=== PATIENT | male | born 1945 | race Caucasian/White ===

== ENCOUNTER 2017-03-21 12:33 | Emergency (ER) | payer MEDICARE ==
[2017-03-21 12:44] VITALS: BP 118/67
--- NOTE | 2017-03-21 13:04 | PHYS DOC ---
Past Medical History Past Medical History: Other Additional Past Medical Histor: bone spur. uses wheelchair r/t arthritis debility;bladder problem Past Surgical History: Other Additional Past Surgical Histo: COLOSTOMY; urostomy Alcohol Use: None Drug Use: None Adult General Chief Complaint Chief Complaint: EYE PROBLEMS HPI HPI Patient is a 71 year old male presents emergency department stating that he is having left lower eyelid itching and irritation. He states this is been occurring for the last few days. He denies any drainage or discharge denies any upper respiratory congestion. He denies any use of contact lenses. Denies any exposure to conjunctivitis. Patient denies any visual changes. Review of Systems Review of Systems Constitutional: Denies fever or chills [] Eyes: Denies change in visual acuity, redness, complaining of eye irritation, left HENT: Denies nasal congestion or sore throat [] Respiratory: Denies cough or shortness of breath [] Cardiovascular: No additional information not addressed in HPI [] GI: Denies abdominal pain, nausea, vomiting, bloody stools or diarrhea [] : Denies dysuria or hematuria [] Musculoskeletal: Denies back pain or joint pain [] Integument: Denies rash or skin lesions [] Neurologic: Denies headache, focal weakness or sensory changes [] Endocrine: Denies polyuria or polydipsia [] Allergies Allergies Allergies Coded Allergies Type Severity Reaction Last Updated Verified No Known Drug Allergies 05/03/15 No Physical Exam Physical Exam Constitutional: Well developed, well nourished, no acute distress, non-toxic appearance. [] HENT: Normocephalic, atraumatic, bilateral external ears normal, oropharynx moist, no oral exudates, nose normal. [] Eyes: PERRLA, EOMI, conjunctiva normal, no discharge. Left lower eyelid appears to be slightly red and swollen. No drainage or discharge noted from the site. Neck: Normal range of motion, no tenderness, supple, no stridor. [] Cardiovascular:Heart rate regular rhythm Lungs & Thorax: No respiratory distress noted Skin: Warm, dry, no erythema, no rash. [] Extremities: No tenderness, no cyanosis, no clubbing, ROM intact, no edema. [] Neurologic: Alert and oriented X 3, normal motor function, normal sensory function, no focal deficits noted. [] Psychologic: Affect normal, judgement normal, mood normal. [] Current Patient Data Vital Signs Vital Signs Date Time Temp Pulse Resp B/P (MAP) Pulse Ox O2 Delivery O2 Flow Rate FiO2 03/21/17 12:44 97.9 97 18 118/67 (84) 96 Room Air 97.9 EKG EKG [] Radiology/Procedures Radiology/Procedures [] Course & Med Decision Making Course & Med Decision Making Pertinent Labs and Imaging studies reviewed. (See chart for details) Patient will be placed on erythromycin in which she can placed into the eye or along the eyelid. He will be provided with key ringer to follow up within the next 2-3 days. Signs and symptoms to return back to the emergency department has been provided. Patient agrees with discharge instructions, treatment regimens and follow-up recommendations. [] Dragon Disclaimer Dragon Disclaimer This electronic medical record was generated, in whole or in part, using a voice recognition dictation system. Departure Departure Impression: Primary Impression: Infection of eyelid Disposition: 01 HOME, SELF-CARE Condition: STABLE Referrals: ISA WHITEHEAD (PCP) Layne CRUZ MD Patient Instructions: Sty Additional Instructions: Medications as prescribed. Good handwashing is essential. Do not place the ointment tube to your eye. Follow-up with key ringer in the next 24-48 hours. Return back to emergency prior signs symptoms become worse. Scripts Erythromycin Base (Erythromycin) 1 Gm Oint...g. 1 GM LEFTEYE QID for 7 Days, MISC Place ointment to the left lower eye lid as directed for the next 7 days Prov: NAKITA DRUMMOND APRN 03/21/17 NAKITA DRUMMOND APRN Mar 21, 2017 13:04
[2017-03-21] MEDS ORDERED: ERYT1OIN6 LEFTEYE (13:10)
== END 2017-03-21 13:20 | disposition home or self-care (01) ==
LOC: ER 12:33
DX: H01.9 Unspecified inflammation of eyelid (principal); M19.90 Unspecified osteoarthritis, unspecified site
CPT/HCPCS: 99283

== ENCOUNTER 2017-12-15 15:03 | Emergency (ER) | payer MEDICARE | END 2017-12-15 15:09 | disposition left against medical advice (07) | LOC: ER 15:09 | DX: M79.622 Pain in left upper arm (principal); Z53.21 Procedure and treatment not carried out due to patient leaving prior to being seen by health care provider ==

== ENCOUNTER 2018-03-20 12:15 | Emergency (ER) | payer SELFPAY, MEDICARE | END 2018-03-20 14:28 | disposition home or self-care (01) | LOC: ER 12:15 | DX: S80.02XA Contusion of left knee, initial encounter (principal); M17.12 Unilateral primary osteoarthritis, left knee; M54.2 Cervicalgia; M25.512 Pain in left shoulder; W01.0XXA Fall on same level from slipping, tripping and stumbling without subsequent striking against object, initial encounter; Y93.89 Activity, other specified; Y99.8 Other external cause status; Y92.89 Other specified places as the place of occurrence of the external cause | CPT/HCPCS: 72125; 73060; 73564; 99284-25 ==

== ENCOUNTER 2018-03-28 17:22 | Emergency (ER) | payer MEDICARE | END 2018-03-28 19:34 | disposition home or self-care (01) | LOC: ER 17:22 | DX: S60.041A Contusion of right ring finger without damage to nail, initial encounter (principal); W18.39XA Other fall on same level, initial encounter; Y93.89 Activity, other specified; Y99.8 Other external cause status; Y92.89 Other specified places as the place of occurrence of the external cause | CPT/HCPCS: 29130; 73130; 99284-25 ==

== ENCOUNTER 2018-09-09 12:16 | Emergency (ER) | payer MEDICARE ==
[~2018-09-09] VITALS: Ht 182.9 cm; Wt 118.8 kg
[~2018-09-09 12:16] MED LIST: ERYT1OIN6 LEFTEYE
--- NOTE | 2018-09-09 12:50 | PHYS DOC ---
Past Medical History Past Medical History: Other Additional Past Medical Histor: bone spur. uses wheelchair r/t arthritis debility;bladder problem Past Surgical History: Other Additional Past Surgical Histo: COLOSTOMY; urostomy Alcohol Use: None Drug Use: None Adult General Chief Complaint Chief Complaint: BLURRED/DOUBLE VISION [facility] HPI Patient is a 72 year old male who presents with blurred vision. Patient states he was riding his motorized scooter to go get some lunch at a local bar. He had onset of what he describes to be blurred vision but only in the right eye. The symptoms lasted only a few minutes and spontaneously resolved. He came to the ER for evaluation. He did not have any focal weakness or other neuro complaints. At baseline, the patient ambulance with a walker while at home and uses a motorized scooter when he leaves his house. He has not been ill lately. No fever or chills. No headaches. No vision changes other than described. No nausea or vomiting. No weakness. No chest pain or shortness of breath. During this interview, the patient's symptoms were entirely resolved. He did not describe any vision loss. He has no eye pain. Review of Systems Review of Systems Constitutional: Denies fever or chills Eyes: as documented above HENT: Denies nasal congestion or sore throat Respiratory: Denies cough or shortness of breath Cardiovascular: No additional information not addressed in HPI GI: Denies abdominal pain, nausea : Denies dysuria or hematuria Musculoskeletal: Denies back pain Integument: Denies rash or skin lesions Neurologic: Denies headache, or focal neuro complaints All other systems were reviewed and found to be within normal limits, except as documented in this note. Allergies Allergies Allergies Coded Allergies Type Severity Reaction Last Updated Verified No Known Drug Allergies 09/09/18 No Physical Exam Physical Exam Constitutional: Well developed, well nourished, no acute distress, non-toxic appearance HENT: Normocephalic, atraumatic, bilateral external ears normal, oropharynx moist Eyes: PERRLA, EOMI, conjunctiva normal Neck: Normal range of motion, no tenderness Cardiovascular:Heart rate regular rhythm, no murmur Lungs & Thorax: Bilateral breath sounds clear to auscultation Abdomen: Bowel sounds normal, soft Skin: Warm, dry, no erythema, no rash Extremities: No tenderness, no edema Neurologic: Alert and oriented X 3, normal motor function, CN II-XII intact bilaterally, 5/5 motor strength in all extremities Psychologic: Affect normal Current Patient Data Vital Signs Vital Signs Date Time Temp Pulse Resp B/P (MAP) Pulse Ox O2 Delivery O2 Flow Rate FiO2 09/09/18 12:16 98.4 71 18 157/71 (99) 99 Room Air 98.4 Lab Values Laboratory Tests Test 09/09/18 12:50 White Blood Count 5.1 x10^3/uL (4.0-11.0) Red Blood Count 4.50 x10^6/uL (4.30-5.70) Hemoglobin 14.0 g/dL (13.0-17.5) Hematocrit 38.8 % (39.0-53.0) L Mean Corpuscular Volume 86 fL (79-100) Mean Corpuscular Hemoglobin 31 pg (25-35) Mean Corpuscular Hemoglobin Concent 36 g/dL (31-37) Red Cell Distribution Width 13.8 % (11.5-14.5) Platelet Count 184 x10^3/uL (140-400) Neutrophils (%) (Auto) 50 % (31-73) Lymphocytes (%) (Auto) 32 % (24-48) Monocytes (%) (Auto) 13 % (0-9) H Eosinophils (%) (Auto) 3 % (0-3) Basophils (%) (Auto) 2 % (0-3) Neutrophils # (Auto) 2.5 x10^3uL (1.8-7.7) Lymphocytes # (Auto) 1.6 x10^3/uL (1.0-4.8) Monocytes # (Auto) 0.7 x10^3/uL (0.0-1.1) Eosinophils # (Auto) 0.1 x10^3/uL (0.0-0.7) Basophils # (Auto) 0.1 x10^3/uL (0.0-0.2) Sodium Level 137 mmol/L (136-145) Potassium Level 4.0 mmol/L (3.5-5.1) Chloride Level 100 mmol/L (98-107) Carbon Dioxide Level 28 mmol/L (21-32) Anion Gap 9 (6-14) Blood Urea Nitrogen 20 mg/dL (8-26) Creatinine 1.4 mg/dL (0.7-1.3) H Estimated GFR (Cockcroft-Gault) 49.8 Glucose Level 100 mg/dL (70-99) H Calcium Level 9.6 mg/dL (8.5-10.1) Troponin I Quantitative < 0.017 ng/mL (0.000-0.055) Laboratory Tests 09/09/18 12:50 Laboratory Tests 09/09/18 12:50 EKG EKG No STEMI Interpretation Time: 12:50 Radiology/Procedures Radiology/Procedures CT head w/o: No acute findings Course & Med Decision Making Course & Med Decision Making Pertinent Labs and Imaging studies reviewed. (See chart for details) Patient was evaluated in the emergency department for a transient episode of blurred vision. He did not have vision loss. He has no pain. No pain with extraocular movements. During the ED course, his eye exam was normal. His visual acuities were OU, OD, OS were all 20/50. Neuro exam was normal. CT scan was normal. Lab panel was normal and normal EKG. Patient was discharged to home. He was advised follow-up with an collator hand. Return to the ER for any new or worsening symptoms. The patient was requesting discharge home. Dragon Disclaimer Dragon Disclaimer This electronic medical record was generated, in whole or in part, using a voice recognition dictation system. Departure Departure Disposition: 01 HOME, SELF-CARE Condition: GOOD Referrals: ISA WHITEHEAD MD (PCP) SALVADOR RG DO Sep 09, 2018 12:50
[2018-09-09 12:59] LABS: BASO # 0.1 x10^3/uL (0.0-0.2); BASO % 2 % (0-3); EOS # 0.1 x10^3/uL (0.0-0.7); EOS % 3 % (0-3); HEMATOCRIT 38.8 % (39.0-53.0); LYMPH # 1.6 x10^3/uL (1.0-4.8); LYMPH % 32 % (24-48); MEAN CORPUSCULAR HEMOGLOBIN 31 pg (25-35); MEAN CORPUSCULAR HGB CONC 36 g/dL (31-37); MEAN CORPUSCULAR VOLUME 86 fL (79-100); MONO # 0.7 x10^3/uL (0.0-1.1); MONO % 13 % (0-9); NEUT # 2.5 x10^3uL (1.8-7.7); NEUT % 50 % (31-73); PLATELET COUNT 184 x10^3/uL (140-400); RED CELL DISTRIBUTION WIDTH 13.8 % (11.5-14.5); WHITE BLOOD COUNT 5.1 x10^3/uL (4.0-11.0)
[2018-09-09 13:27] LABS: CALCIUM 9.6 mg/dL (8.5-10.1); CREATININE 1.4 mg/dL (0.7-1.3); GFR 49.8
--- NOTE | 2018-09-09 13:31 | RAD ---
CT Head W/O Contrast: History: Sudden onset vision loss right eye Comparison: November 20, 2012 Axial images were obtained without contrast. There is moderate diffuse atrophy. There is no mass effect, extraaxial fluid collections or hydrocephalus. There is no focal loss of teague-white matter distinction to suggest acute ischemia, i.e. stroke. Impression: No acute findings. RS Compliance Statement: One or more of the following individualized dose reduction techniques were utilized for this examination: 1. Automated exposure control 2. Adjustment of the mA and/or kV according to patient size 3. Use of iterative reconstruction technique Electronically signed by: Jeet Lopez III, MD (09/09/2018 1:27 PM) [facility]
[2018-09-09 13:53] VITALS: BP 147/77
--- NOTE | 2018-09-09 18:34 | EKG ---
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
== END 2018-09-09 14:02 | disposition home or self-care (01) ==
LOC: ER 12:16
DX: H53.8 Other visual disturbances (principal)
CPT/HCPCS: 36415; 70450; 80048; 84484; 85025; 93005; 99284-25

== ENCOUNTER 2020-03-23 00:52 | Emergency (ER) | payer MEDICARE ==
[~2020-03-23] VITALS: Ht 185.4 cm; Wt 118.8 kg
--- NOTE | 2020-03-23 01:21 | PHYS DOC ---
Past Medical History Past Medical History: Other Additional Past Medical Histor: bone spur. uses wheelchair r/t arthritis debility;bladder problem Past Surgical History: Other Additional Past Surgical Histo: COLOSTOMY; urostomy Smoking Status: Current Every Day Smoker Alcohol Use: None Drug Use: None General Adult EDM: Chief Complaint: WEAKNESS/GENERALIZED HPI: HPI: Patient is a 74 year old male with a past medical history of arthritis in both knees presents by EMS for the evaluation of fever cough and weakness. EMS reports patient had a fever today of 101.9 associated with a cough and generalized weakness x2 days. When examining the patient he denies any fever cough or generalized weakness. His main complaint is bilateral knee pain. Patient states is longstanding history of arthritis in both knees. He takes meloxicam for his pain but did not take any tonight. He states he in the past he has gotten cortisone shots in both knees. Patient is requesting cortisone shots at this time. Patient is currently afebrile. He is alert to place, month, and the president. Patient is confused regarding the year. Patient's vital signs are stable tem perature 99.9, pulse 98, respiratory rate 20 and oxygen saturation 97% on room air. Review of Systems: Review of Systems: Constitutional: Positive fever Eyes: Denies change in visual acuity. [] HENT: Denies nasal congestion or sore throat. [] Respiratory: Denies shortness of breath. [Positive history of cough ] Cardiovascular: Denies chest pain or edema. [] GI: Denies abdominal pain, nausea, vomiting, bloody stools or diarrhea. [] : Denies dysuria. [] Musculoskeletal: Positive joint pain Integument: Denies rash. [] Neurologic: Denies headache, focal weakness or sensory changes. [] Endocrine: Denies polyuria or polydipsia. [] Lymphatic: Denies swollen glands. [] Psychiatric: Denies depression or anxiety. [] Heart Score: Risk Factors: Risk Factors: DM, Current or recent (<one month) smoker, HTN, HLP, family history of CAD, obesity. Risk Scores: Score 0 - 3: 2.5% MACE over next 6 weeks - Discharge Home Score 4 - 6: 20.3% MACE over next 6 weeks - Admit for Clinical Observation Score 7 - 10: 72.7% MACE over next 6 weeks - Early Invasive Strategies Allergies: Allergies: Allergies Coded Allergies Type Severity Reaction Last Updated Verified No Known Drug Allergies 09/09/18 No Physical Exam: PE: Constitutional: Well developed, well nourished, no acute distress, non-toxic appearance. [] HENT: Normocephalic, atraumatic, bilateral external ears normal, oropharynx moist, no oral exudates, nose normal. [] Eyes: PERRLA, EOMI, conjunctiva normal, no discharge. [] Neck: Normal range of motion, no tenderness, supple, no stridor. [] Cardiovascular:Heart rate regular rhythm, no murmur [] Lungs & Thorax: Bilateral breath sounds clear to auscultation [] Abdomen: Bowel sounds normal, soft, no tenderness, no masses, no pulsatile masses. [] Skin: Warm, dry, no erythema, no rash. [] Back: No tenderness, no CVA tenderness. [] Extremities: No tenderness, no cyanosis, no clubbing, ROM intact, no edema. [] Neurologic: Alert and oriented X 3, normal motor function, normal sensory function, no focal deficits noted. [] Psychologic: Affect normal, judgement normal, mood normal. [] EKG: EKG: time 111hrd rate 99 sinus rhythm no stemi [] Radiology/Procedures: Radiology/Procedures: [] Impression: Comparison study is dated 10/30/2013. The cardiac silhouette is normal in size. The thoracic aorta is tortuous. Atherosclerotic calcification of the thoracic aorta is seen. A small calcified granuloma is seen involving the left upper lobe, unchanged. No acute pulmonary infiltrate is noted. No pneumothorax or pleural effusion is seen. Degenerative changes are seen involving the thoracic spine and both shoulders, left greater than right. Impression: No acute abnormality is seen. Course & Med Decision Making: Course & Med Decision Making Pertinent Labs and Imaging studies reviewed. (See chart for details) [] Patient was evaluated for EMS triage chief complaint. Work-up consisted of labs radiologic imaging and EKG. Patient denies any other symptoms such as shortness of breath fever cough. Work-up completely normal. Patient was direct requesting steroid shots in both knees. Patient's pain was treated with fentanyl with improvement. Patient also requesting refill on his meloxicam. Patient ambulated with a steady gait. Dragon Disclaimer: DragAristotle Circle Disclaimer: This electronic medical record was generated, in whole or in part, using a voice recognition dictation system. Departure Departure Impression: Primary Impression: Knee pain, chronic Disposition: HOME, SELF-CARE Condition: STABLE Referrals: NO PCP (PCP) Patient Instructions: Knee Pain Scripts Meloxicam (MELOXICAM) 7.5 Mg Tablet 1 TAB PO DAILY for 30 Days, #30 TAB 0 Refills Prov: ANGELIA SALGADO DO 03/23/20 Justicifation of Admission Dx: Justifications for Admission: Justification of Admission Dx: N/A ANGELIA SALGADO DO Mar 23, 2020 01:21
[2020-03-23] MEDS ORDERED: ACETAMINOPHEN 325 MG TABLET. PO ONE (01:45)
[2020-03-23 01:50] LABS: BASO % 1 % (0-3); EOS # 0.1 x10^3/uL (0.0-0.7); EOS % 1 % (0-3); HEMATOCRIT 36.7 % (39.0-53.0); LYMPH % 17 % (24-48); MEAN CORPUSCULAR HEMOGLOBIN 31 pg (25-35); MEAN CORPUSCULAR HGB CONC 35 g/dL (31-37); MEAN CORPUSCULAR VOLUME 87 fL (79-100); MONO # 1.3 x10^3/uL (0.0-1.1); MONO % 23 % (0-9); NEUT # 3.4 x10^3/uL (1.8-7.7); NEUT % 59 % (31-73); PLATELET COUNT 170 x10^3/uL (140-400); RED BLOOD COUNT 4.25 x10^6/uL (4.30-5.70); RED CELL DISTRIBUTION WIDTH 13.9 % (11.5-14.5); WHITE BLOOD COUNT 5.7 x10^3/uL (4.0-11.0)
[2020-03-23 01:54] LABS: CREATININE 1.7 mg/dL (0.7-1.3); GFR 39.6
[2020-03-23 01:59] LABS: ALBUMIN 3.4 g/dL (3.4-5.0); ALBUMIN/GLOBULIN RATIO 0.8 (1.0-1.7); TOTAL BILIRUBIN 1.1 mg/dL (0.2-1.0); TOTAL PROTEIN 7.6 g/dL (6.4-8.2)
[2020-03-23 02:16] LABS: % ATYL 1 % (0-0); % BANDS 1 % (0-9); % BASOS 1 % (0-3); % LYMPHS 17 % (24-48); % MONOS 13 % (0-10); % SEGS 67 % (35-66); PLT ESTIMATE ADEQUATE (ADEQUATE)
[2020-03-23 02:16] LABS: BILIRUBIN,URINE NEGATIVE (NEG); CLARITY,URINE CLEAR; COLOR,URINE YELLOW; NITRITE,URINE NEGATIVE (NEG); PROTEIN,URINE NEGATIVE (NEG-TRACE)
[2020-03-23 02:25] LABS: SQUAMOUS EPITHELIAL CELL,UR FEW /LPF
[2020-03-23 02:26] LABS: AMORPHOUS SEDIMENT,UR PRESENT /HPF; BACTERIA,URINE 0 /HPF (0-FEW); RBC,URINE RARE /HPF (0-2); WBC,URINE RARE /HPF (0-4)
--- NOTE | 2020-03-23 02:53 | RAD ---
AP portable chest radiograph 03/23/2020 Clinical History: Cough. An AP erect portable digital radiograph of the chest was obtained. Comparison study is dated 10/30/2013. The cardiac silhouette is normal in size. The thoracic aorta is tortuous. Atherosclerotic calcification of the thoracic aorta is seen. A small calcified granuloma is seen involving the left upper lobe, unchanged. No acute pulmonary infiltrate is noted. No pneumothorax or pleural effusion is seen. Degenerative changes are seen involving the thoracic spine and both shoulders, left greater than right. Impression: No acute abnormality is seen. Electronically signed by: Jamie Marroquin MD (03/23/2020 2:50 AM) [id number]
[2020-03-23] MEDS ORDERED: MELO7.5T29 PO (04:30)
--- NOTE | 2020-03-23 04:44 | EKG ---
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
[2020-03-23] MEDS ORDERED: fentaNYL PF VIAL 100 MCG/2 ML VIAL IVP ONE (06:00)
--- NOTE | 2020-03-23 08:32 | PDOC1 ---
History and Physical Date of Admission Date of Admission DATE: 03/23/20 TIME: 08:32 Identification/Chief Complaint Chief Complaint patient left ama Past Medical History Past Medical History Past Medical History Past Medical History: Other Additional Past Medical Histor: bone spur. uses wheelchair r/t arthritis debility;bladder problem Past Surgical History: Other Additional Past Surgical Histo: COLOSTOMY; urostomy Alcohol Use: None Drug Use: None FHX OBESITY Current Problem List Problem List Problems Medical Problems: (1) Knee pain, chronic Status: Acute Current Medications Current Medications Current Medications Acetaminophen (Tylenol) 650 mg 1X ONCE PO Last administered on 03/23/20at 02:16; Start 03/23/20 at 01:45; Stop 03/23/20 at 01:46; Status DC Fentanyl Citrate (Fentanyl 2ml Vial) 25 mcg 1X ONCE IVP Last administered on 03/23/20at 05:58; Start 03/23/20 at 06:00; Stop 03/23/20 at 06:01; Status DC Active Scripts Active Meloxicam 7.5 Mg Tablet 1 Tab PO DAILY 30 Days Erythromycin (Erythromycin Base) 1 Gm Oint...g. 1 Gm LEFTEYE QID [address] ointment to the left lower eye lid as directed for the next 7 days Reported No Known Medications Prior To Admisstion (Info) Each 1 Each Allergies Allergies: Coded Allergies: No Known Drug Allergies (Unverified , 09/09/18) Vitals Vitals Vital Signs Date Time Temp Pulse Resp B/P (MAP) Pulse Ox O2 Delivery O2 Flow Rate FiO2 03/23/20 06:32 98.3 84 20 98 98.3 03/23/20 05:58 Room Air 03/23/20 00:52 159/70 (99) Labs Labs Laboratory Tests Test 03/23/20 01:15 03/23/20 01:24 Urine Collection Type Unknown Urine Color Yellow Urine Clarity Clear Urine pH 7.0 (<5.0-8.0) Urine Specific Brady 1.020 (1.000-1.030) Urine Protein Negative mg/dL (NEG-TRACE) Urine Glucose (UA) Negative mg/dL (NEG) Urine Ketones (Stick) Negative mg/dL (NEG) Urine Blood Negative (NEG) Urine Nitrite Negative (NEG) Urine Bilirubin Negative (NEG) Urine Urobilinogen Dipstick 1.0 mg/dL (0.2 mg/dL) Urine Leukocyte Esterase Negative (NEG) Urine RBC Rare /HPF (0-2) Urine WBC Rare /HPF (0-4) Urine Squamous Epithelial Cells Few /LPF Urine Amorphous Sediment Present /HPF Urine Bacteria 0 /HPF (0-FEW) Urine Mucus Slight /LPF White Blood Count 5.7 x10^3/uL (4.0-11.0) Red Blood Count 4.25 x10^6/uL (4.30-5.70) Hemoglobin 13.0 g/dL (13.0-17.5) Hematocrit 36.7 % (39.0-53.0) Mean Corpuscular Volume 87 fL (79-100) Mean Corpuscular Hemoglobin 31 pg (25-35) Mean Corpuscular Hemoglobin Concent 35 g/dL (31-37) Red Cell Distribution Width 13.9 % (11.5-14.5) Platelet Count 170 x10^3/uL (140-400) Neutrophils (%) (Auto) 59 % (31-73) Lymphocytes (%) (Auto) 17 % (24-48) Monocytes (%) (Auto) 23 % (0-9) Eosinophils (%) (Auto) 1 % (0-3) Basophils (%) (Auto) 1 % (0-3) Neutrophils # (Auto) 3.4 x10^3/uL (1.8-7.7) Lymphocytes # (Auto) 1.0 x10^3/uL (1.0-4.8) Monocytes # (Auto) 1.3 x10^3/uL (0.0-1.1) Eosinophils # (Auto) 0.1 x10^3/uL (0.0-0.7) Basophils # (Auto) 0.0 x10^3/uL (0.0-0.2) Segmented Neutrophils % 67 % (35-66) Band Neutrophils % 1 % (0-9) Lymphocytes % 17 % (24-48) Atypical Lymphocytes % (Manual) 1 % (0-0) Monocytes % 13 % (0-10) Basophils % 1 % (0-3) Platelet Estimate Adequate (ADEQUATE) Sodium Level 134 mmol/L (136-145) Potassium Level 4.0 mmol/L (3.5-5.1) Chloride Level 97 mmol/L (98-107) Carbon Dioxide Level 28 mmol/L (21-32) Anion Gap 9 (6-14) Blood Urea Nitrogen 21 mg/dL (8-26) Creatinine 1.7 mg/dL (0.7-1.3) Estimated GFR (Cockcroft-Gault) 39.6 BUN/Creatinine Ratio 12 (6-20) Glucose Level 123 mg/dL (70-99) Calcium Level 9.0 mg/dL (8.5-10.1) Total Bilirubin 1.1 mg/dL (0.2-1.0) Aspartate Amino Transf (AST/SGOT) 16 U/L (15-37) Alanine Aminotransferase (ALT/SGPT) 20 U/L (16-63) Alkaline Phosphatase 33 U/L (46-116) Troponin I Quantitative < 0.017 ng/mL (0.000-0.055) WL-Fyc-I-Type Natriuretic Peptide 225 pg/mL (0-124) Total Protein 7.6 g/dL (6.4-8.2) Albumin 3.4 g/dL (3.4-5.0) Albumin/Globulin Ratio 0.8 (1.0-1.7) Laboratory Tests Test 03/23/20 01:15 03/23/20 01:24 Urine Collection Type Unknown Urine Color Yellow Urine Clarity Clear Urine pH 7.0 (<5.0-8.0) Urine Specific Brady 1.020 (1.000-1.030) Urine Protein Negative mg/dL (NEG-TRACE) Urine Glucose (UA) Negative mg/dL (NEG) Urine Ketones (Stick) Negative mg/dL (NEG) Urine Blood Negative (NEG) Urine Nitrite Negative (NEG) Urine Bilirubin Negative (NEG) Urine Urobilinogen Dipstick 1.0 mg/dL (0.2 mg/dL) Urine Leukocyte Esterase Negative (NEG) Urine RBC Rare /HPF (0-2) Urine WBC Rare /HPF (0-4) Urine Squamous Epithelial Cells Few /LPF Urine Amorphous Sediment Present /HPF Urine Bacteria 0 /HPF (0-FEW) Urine Mucus Slight /LPF White Blood Count 5.7 x10^3/uL (4.0-11.0) Red Blood Count 4.25 x10^6/uL (4.30-5.70) Hemoglobin 13.0 g/dL (13.0-17.5) Hematocrit 36.7 % (39.0-53.0) Mean Corpuscular Volume 87 fL (79-100) Mean Corpuscular Hemoglobin 31 pg (25-35) Mean Corpuscular Hemoglobin Concent 35 g/dL (31-37) Red Cell Distribution Width 13.9 % (11.5-14.5) Platelet Count 170 x10^3/uL (140-400) Neutrophils (%) (Auto) 59 % (31-73) Lymphocytes (%) (Auto) 17 % (24-48) Monocytes (%) (Auto) 23 % (0-9) Eosinophils (%) (Auto) 1 % (0-3) Basophils (%) (Auto) 1 % (0-3) Neutrophils # (Auto) 3.4 x10^3/uL (1.8-7.7) Lymphocytes # (Auto) 1.0 x10^3/uL (1.0-4.8) Monocytes # (Auto) 1.3 x10^3/uL (0.0-1.1) Eosinophils # (Auto) 0.1 x10^3/uL (0.0-0.7) Basophils # (Auto) 0.0 x10^3/uL (0.0-0.2) Segmented Neutrophils % 67 % (35-66) Band Neutrophils % 1 % (0-9) Lymphocytes % 17 % (24-48) Atypical Lymphocytes % (Manual) 1 % (0-0) Monocytes % 13 % (0-10) Basophils % 1 % (0-3) Platelet Estimate Adequate (ADEQUATE) Sodium Level 134 mmol/L (136-145) Potassium Level 4.0 mmol/L (3.5-5.1) Chloride Level 97 mmol/L (98-107) Carbon Dioxide Level 28 mmol/L (21-32) Anion Gap 9 (6-14) Blood Urea Nitrogen 21 mg/dL (8-26) Creatinine 1.7 mg/dL (0.7-1.3) Estimated GFR (Cockcroft-Gault) 39.6 BUN/Creatinine Ratio 12 (6-20) Glucose Level 123 mg/dL (70-99) Calcium Level 9.0 mg/dL (8.5-10.1) Total Bilirubin 1.1 mg/dL (0.2-1.0) Aspartate Amino Transf (AST/SGOT) 16 U/L (15-37) Alanine Aminotransferase (ALT/SGPT) 20 U/L (16-63) Alkaline Phosphatase 33 U/L (46-116) Troponin I Quantitative < 0.017 ng/mL (0.000-0.055) AL-Ejx-I-Type Natriuretic Peptide 225 pg/mL (0-124) Total Protein 7.6 g/dL (6.4-8.2) Albumin 3.4 g/dL (3.4-5.0) Albumin/Globulin Ratio 0.8 (1.0-1.7) VTE Prophylaxis Ordered VTE Prophylaxis Devices: Yes VTE Pharmacological Prophylaxi: Yes Justicifation of Admission Dx: Justifications for Admission: Justification of Admission Dx: N/A GISSELLE HENSON MD Mar 23, 2020 08:32
[2020-03-23 08:38] VITALS: BP 147/67
== END 2020-03-23 05:56 | disposition left against medical advice (07) ==
LOC: ER 00:52 → ED HOLD 05:45 → UNDOADMOB 05:45 → ER 05:56
DX: M25.561 Pain in right knee (principal); Z20.828 Contact with and (suspected) exposure to other viral communicable diseases; M25.562 Pain in left knee; R50.9 Fever, unspecified; R53.1 Weakness; R05 Cough; F17.200 Nicotine dependence, unspecified, uncomplicated; Z90.89 Acquired absence of other organs; Z98.890 Other specified postprocedural states
CPT/HCPCS: 36415; 71045; 80053; 81001; 83880; 84484; 85007; 85025; 87040; 93005; 96374; 99285; J3010; U0003

== ENCOUNTER 2020-05-29 03:41 | Emergency (ER) | payer MEDICARE ==
[~2020-05-29] VITALS: Ht 182.9 cm; Wt 113.6 kg
[~2020-05-29 03:41] MED LIST changes: +MELO7.5T29 PO
[2020-05-29] MEDS ORDERED: MELOXICAM 7.5 MG TABLET PO ONE (04:30)
[2020-05-29 04:49] LABS: BASO % 0 % (0-3); EOS # 0.1 x10^3/uL (0.0-0.7); EOS % 1 % (0-3); HEMATOCRIT 37.1 % (39.0-53.0); HEMOGLOBIN 13.1 g/dL (13.0-17.5); LYMPH # 1.3 x10^3/uL (1.0-4.8); LYMPH % 22 % (24-48); MEAN CORPUSCULAR HEMOGLOBIN 30 pg (25-35); MEAN CORPUSCULAR HGB CONC 35 g/dL (31-37); MEAN CORPUSCULAR VOLUME 86 fL (79-100); MONO # 1.2 x10^3/uL (0.0-1.1); MONO % 20 % (0-9); NEUT # 3.3 x10^3/uL (1.8-7.7); NEUT % 56 % (31-73); PLATELET COUNT 147 x10^3/uL (140-400); RED BLOOD COUNT 4.32 x10^6/uL (4.30-5.70); RED CELL DISTRIBUTION WIDTH 14.6 % (11.5-14.5); WHITE BLOOD COUNT 5.9 x10^3/uL (4.0-11.0)
[2020-05-29 05:02] LABS: CALCIUM 9.4 mg/dL (8.5-10.1); CREATININE 1.2 mg/dL (0.7-1.3); GFR 59.2; POTASSIUM 4.3 mmol/L (3.5-5.1)
[2020-05-29 05:44] VITALS: BP 173/79
[2020-05-29] MEDS ORDERED: MELO7.5T29 PO (05:45)
--- NOTE | 2020-05-29 05:45 | PHYS DOC ---
Past Medical History Past Medical History: Arthritis, Asthma Additional Past Medical Histor: ABD SURGERY, PT UNABLE TO RECALL THE NAME OF SX. (SHRUTHI CUNNINGHAM MD) Past Surgical History: Other Additional Past Surgical Histo: ABD SX. (SHRUTHI CUNNINGHAM MD) Smoking Status: Current Every Day Smoker Alcohol Use: None Drug Use: None (SHRUTHI CUNNINGHAM MD) General Adult EDM: Chief Complaint: MECHANICAL FALL HPI: HPI: Patient is a 74-year-old male who presents to the emergency room after a fall from standing. Patient states that his legs gave out from under him. He states that he has been out of his meloxicam and has been having pain in her legs. He denies any injury from the fall. He is requesting meloxicam. He has no other complaints. (SHRUTHI CUNNINGHAM MD) Review of Systems: Review of Systems: General: Denies fever, chills, sweats, fatigue Eyes: Denies drainage, blurred vision, eye redness HENT: Denies rhinorrhea, sore throat, earache Respiratory: Denies cough, shortness of breath, wheezing Cardiac: Denies edema, palpitations, chest pain GI: Denies abdominal pain, Nausea, vomiting MSK: Denies back pain, neck pain Skin: Denies rash, jaundice Neuro: Denies headache, dizziness Psychiatric: Denies SI/HI (SHRUTHI CUNNINGHAM MD) Heart Score: Risk Factors: Risk Factors: DM, Current or recent (<one month) smoker, HTN, HLP, family history of CAD, obesity. Risk Scores: Score 0 - 3: 2.5% MACE over next 6 weeks - Discharge Home Score 4 - 6: 20.3% MACE over next 6 weeks - Admit for Clinical Observation Score 7 - 10: 72.7% MACE over next 6 weeks - Early Invasive Strategies (SHRUTHI CUNNINGHAM MD) Current Medications: Current Medications Medications (Trade) Dose Ordered Sig/Eli Start Time Stop Time Status Last Admin Dose Admin Meloxicam (Mobic) 7.5 mg 1X ONCE 05/29/20 04:30 05/29/20 04:31 DC 05/29/20 04:37 7.5 MG (SHRUTHI CUNNINGHAM MD) Allergies: Allergies: Allergies Coded Allergies Type Severity Reaction Last Updated Verified No Known Drug Allergies 09/09/18 No (SHRUTHI CUNNINGHAM MD) Physical Exam: PE: General: Awake, alert, NAD. Well Nourished, well hydrated. Cooperative HEENT: Atraumatic, EOMI, PERRL, airway patent, moist oral mucosa Neck: Supple, trachea midline Respiratory: CTA bilaterally, normal effort, no wheezing/crackles CV: RRR, no murmur, cap refill <2 GI: Soft, nondistended, nontender, no masses MSK: No obvious deformities Skin: Warm, dry, intact Neuro: A&O x3, speech NL, 5/5 strength in BUE/BLE distally and proximally, CN 2- 12 intact, cerebellar testing normal Psych: Normal affect, normal mood, not suicidal or homicidal (SHRUTHI CUNNINGHAM MD) Current Patient Data: Labs: Laboratory Tests Test 05/29/20 04:16 White Blood Count 5.9 x10^3/uL (4.0-11.0) Red Blood Count 4.32 x10^6/uL (4.30-5.70) Hemoglobin 13.1 g/dL (13.0-17.5) Hematocrit 37.1 % (39.0-53.0) L Mean Corpuscular Volume 86 fL (79-100) Mean Corpuscular Hemoglobin 30 pg (25-35) Mean Corpuscular Hemoglobin Concent 35 g/dL (31-37) Red Cell Distribution Width 14.6 % (11.5-14.5) H Platelet Count 147 x10^3/uL (140-400) Neutrophils (%) (Auto) 56 % (31-73) Lymphocytes (%) (Auto) 22 % (24-48) L Monocytes (%) (Auto) 20 % (0-9) H Eosinophils (%) (Auto) 1 % (0-3) Basophils (%) (Auto) 0 % (0-3) Neutrophils # (Auto) 3.3 x10^3/uL (1.8-7.7) Lymphocytes # (Auto) 1.3 x10^3/uL (1.0-4.8) Monocytes # (Auto) 1.2 x10^3/uL (0.0-1.1) H Eosinophils # (Auto) 0.1 x10^3/uL (0.0-0.7) Basophils # (Auto) 0.0 x10^3/uL (0.0-0.2) Platelet Estimate Pending Sodium Level 137 mmol/L (136-145) Potassium Level 4.3 mmol/L (3.5-5.1) Chloride Level 102 mmol/L (98-107) Carbon Dioxide Level 29 mmol/L (21-32) Anion Gap 6 (6-14) Blood Urea Nitrogen 18 mg/dL (8-26) Creatinine 1.2 mg/dL (0.7-1.3) Estimated GFR (Cockcroft-Gault) 59.2 Glucose Level 116 mg/dL (70-99) H Calcium Level 9.4 mg/dL (8.5-10.1) Laboratory Tests 05/29/20 04:16 Laboratory Tests 05/29/20 04:16 Vital Signs: Vital Signs Date Time Temp Pulse Resp B/P (MAP) Pulse Ox O2 Delivery O2 Flow Rate FiO2 05/29/20 03:48 99.1 97 18 148/71 (96) 97 Room Air 99.1 (SHRUTHI CUNNINGHAM MD) EKG: EKG: [] (SHRUTHI CUNNINGHAM MD) Radiology/Procedures: Radiology/Procedures: [] (SHRUTHI CUNNINGHAM MD) Course & Med Decision Making: Course & Med Decision Making Pertinent Labs and Imaging studies reviewed. (See chart for details) Patient is a 74-year-old poor historian who presents to the emergency room after having a fall from standing. He does have a small skin tear but otherwise has no other signs of traumatic injury. Patient has a neurologic exam that is normal at this time and does not appear to be having a stroke. He was given meloxicam. Basic labs were ordered as patient is a poor historian is unclear whether he is having weakness or just pain in his legs. Patient does not have any obvious weakness on exam. Patient was given meloxicam and was walked in the emergency room. (SHRUTHI CUNNINGHAM MD) Course & Med Decision Making I have received signout on the patient's emergency department care from Dr. Cunningham. We discussed the history, physical exam findings, completed and pending laboratory results and imaging studies. We have also discussed the current treatment plan and expected clinical course. Please refer to further update notes for additional information regarding the patient's final diagnosis and disposition. In brief patient is a 74 male who presents after his legs give out from under him return to stand. He denies striking his head or loss of consciousness. He denies any pain related complaints. Basic labs were obtained and were unremarkable. Patient was monitored in the emergency department. He was able to stand up unassisted and ambulate with a walker which is baseline for him. I did speak with his directly who does feel comfortable monitoring at home. Patient is requesting discharge home. Overall I do feel this is reasonable. was present at bedside to take the patient home. Return precautions discussed and understood. Instructed to follow-up with his primary care physician in the next 2 to 3 days. Stable for discharge. (NICOLE MARTINO DO) Dragon Disclaimer: Dragon Disclaimer: This electronic medical record was generated, in whole or in part, using a voice recognition dictation system. (SHRUTHI CUNNINGHAM MD) Departure Departure Impression: Primary Impression: Weakness Additional Impressions: Fall Qualified Codes: W19.XXXA - Unspecified fall, initial encounter Chronic leg pain Qualified Codes: M79.604 - Pain in right leg; M79.605 - Pain in left leg; G89.29 - Other chronic pain Disposition: 01 HOME, SELF-CARE Condition: STABLE Referrals: NO PCP (PCP) Patient Instructions: Fall Prevention and Home Safety Scripts Meloxicam (MELOXICAM) 7.5 Mg Tablet 1 TAB PO DAILY for 30 Days, #30 TAB 2 Refills Prov: SHRUTHI CUNNINGHAM MD 05/29/20 Justicifation of Admission Dx: Justifications for Admission: Justification of Admission Dx: N/A (SHRUTHI CUNNINGHAM MD) Justification of Admission Dx: N/A (NICOLE MARTINO DO) SHRUTHI CUNNINGHAM MD May 29, 2020 05:45 NICOLE MARTINO DO May 29, 2020 06:13
[2020-05-29 06:55] LABS: % BANDS 3 % (0-9); % BASOS 2 % (0-3); % EOS 1 % (0-5); % LYMPHS 22 % (24-48); % MONOS 20 % (0-10); % SEGS 52 % (35-66)
[2020-05-29 06:56] LABS: PLT ESTIMATE ADEQUATE (ADEQUATE)
[2020-05-30] MEDS ORDERED: MELO15TA23 PO (22:19)
== END 2020-05-29 06:14 | disposition home or self-care (01) ==
LOC: ER 03:41
DX: G89.11 Acute pain due to trauma (principal); M79.604 Pain in right leg; M79.605 Pain in left leg; G89.29 Other chronic pain; M19.90 Unspecified osteoarthritis, unspecified site; J45.909 Unspecified asthma, uncomplicated; F17.200 Nicotine dependence, unspecified, uncomplicated; Z98.890 Other specified postprocedural states; W18.39XA Other fall on same level, initial encounter; Y93.89 Activity, other specified; Y92.89 Other specified places as the place of occurrence of the external cause; Y99.8 Other external cause status
CPT/HCPCS: 36415; 80048; 85007; 85025; 99285

== ENCOUNTER 2021-06-27 09:47 | Inpatient (IN) | payer MEDICARE, OTHER ==
[~2021-06-27] VITALS: Ht 185.4 cm; Wt 105.3 kg
[~2021-06-27 09:47] MED LIST changes: +AMOX1TAB61 PO; +MELO15TA23 PO; +PRED-220 PO; +PRED20TA PO; +PRED5TAB PO
[2021-06-27] MEDS ORDERED: MORPHINE SULFATE 4 MG/ML INJ. IVP ONE (10:15)
--- NOTE | 2021-06-27 10:49 | PHYS DOC ---
Past Medical History Past Medical History: No Pertinent History Additional Past Medical Histor: CHRONIC PAIN,UROSEPSIS Past Surgical History: No Surgical History Additional Past Surgical Histo: ABD SX,SUPRAPUBIC CATHETER PLACEMENT Smoking Status: Current Every Day Smoker Additional Information: 0.5 PPD Alcohol Use: None Drug Use: None General Adult EDM: Chief Complaint: LOWER EXT PAIN HPI: HPI: Patient is a 75 year old male presents the emergency department complaining of urinary catheter leaking from his suprapubic site with cloudy malodorous urine for the past 3 days. Patient denies fever or chills. Denies abdominal pain, nausea, or vomiting or diarrhea. Patient denies chest pains or shortness of breath. Patient also complains of 9 out of 10 right knee pain, states he has had this pain for several years and currently takes meloxicam for that it does not seem to be working. Patient states he uses a wheelchair for ambulation at home related to his chronic arthritis. Patient states he lives at home with his who cares for him some. Patient reports having his catheter replaced approximately 1 month ago at [facility] emergency department. Patient reports receiving the Covid virus vaccine series earlier this year, has not received a flu shot this year. Is a pack-a-day smoker for greater than 60 years, denies alcohol use or illicit drug use. Patient denies other physical complaints or physical concerns. Review of Systems: Review of Systems: 14 body systems of review of systems have been reviewed. See HPI for pertinent positives and negative responses, otherwise all other systems are negative, nonpertinent or noncontributory. Constitutional: Negative except as outlined in HPI above. Skin: Negative except as outlined in HPI above. Eyes: Negative except as outlined in HPI above. HENT: Negative except as outlined in HPI above. Respiratory: Negative except as outlined in HPI above. Cardiovascular: Negative except as outlined in HPI above. GI: Negative except as outlined in HPI above. : Negative except as outlined in HPI above. Musculoskeletal: Negative except as outlined in HPI above. Integument: Negative except as outlined in HPI above. Neurologic: Negative except as outlined in HPI above. Endocrine: Negative except as outlined in HPI above. Lymphatic: Negative except as outlined in HPI above. Psychiatric: Negative except as outlined in HPI above. Heart Score: C/O Chest Pain: No Risk Factors: Risk Factors: DM, Current or recent (<one month) smoker, HTN, HLP, family history of CAD, obesity. Risk Scores: Score 0 - 3: 2.5% MACE over next 6 weeks - Discharge Home Score 4 - 6: 20.3% MACE over next 6 weeks - Admit for Clinical Observation Score 7 - 10: 72.7% MACE over next 6 weeks - Early Invasive Strategies Current Medications: Current Medications Medications (Trade) Dose Ordered Sig/Eli Start Time Stop Time Status Last Admin Dose Admin Morphine Sulfate (Morphine Sulfate) 4 mg 1X ONCE 06/27/21 10:15 06/27/21 10:16 DC Allergies: Allergies: Allergies Coded Allergies Type Severity Reaction Last Updated Verified No Known Drug Allergies 09/09/18 No Physical Exam: PE: Constitutional: Well developed, well nourished, no acute distress, non-toxic appearance. 75-year-old male in no apparent distress. Has adult briefs soaked and urine malodorous with stool in brief. Disheveled appearance. Clothing is soiled, fingers covered in feces. HENT: Normocephalic, atraumatic. Eyes: Conjunctiva normal, no discharge. Neck: Normal range of motion, no stridor. Cardiovascular: No cyanosis appreciated, distal cap refill less than 2 seconds. Lungs & Thorax: Patient is in no respiratory distress, no audible adventitious lung sounds appreciated. Abdomen: Nontender to palpation all 4 quadrants, normal bowel sounds all 4 quadrants, patient has suprapubic catheter, see skin note for focused skin examination, no bruising or skin discoloration of the abdomen appreciated. Skin: Warm, dry, no erythema, no rash. Skin excoriation with mild erythema around suprapubic catheter stoma. No purulent drainage from stoma appreciated. Urine leaking from around suprapubic catheter through stoma Back: No tenderness, no deformities. Extremities: No tenderness, no cyanosis, no clubbing, ROM intact, no edema. Right lateral knee pain to palpation, limited passive range of motion related to pain, no extremity edema or swelling appreciated, 2+ dorsalis pedis/posterior tibial pulse, distal cap refill less than 2 seconds bilaterally Neurologic: Alert and oriented X 3, normal motor function, normal sensory function, no focal deficits noted. Psychologic: Affect normal, judgement normal, mood normal. Current Patient Data: Vital Signs: Vital Signs Date Time Temp Pulse Resp B/P (MAP) Pulse Ox O2 Delivery O2 Flow Rate FiO2 06/27/21 09:47 98.4 89 19 149/67 (94) 100 Room Air 98.4 EKG: EKG: [] Radiology/Procedures: Radiology/Procedures: [] Course & Med Decision Making: Course & Med Decision Making Pertinent Labs and Imaging studies reviewed. (See chart for details) 75-year-old male, vital signs reviewed, presents emergency department concerning cloudy urine and chronic right knee pain. Patient's physical examination concerning for UTI/urosepsis, inability to care for self related to adult brief soaked in urine and covered in feces, patient's fingers covered in feces, disheveled appearance. The patient's vital signs are within normal limits, upon extensive chart review patient has history of chronic right knee pain and arthritis that is treated with 7.5 mg meloxicam, last hospital admission for urosepsis in March 2021 here at [facility]. Will order CBC, CMP, CRP, urinalysis assay, will replace suprapubic Tripp catheter prior to obtaining urine for urinalysis assay. We will give IV pain medication. Patient's urine is infected, will start 1 g Rocephin IV, discussed admission to the hospital with patient related to urinary tract infection, inability to care for self at home, patient is amenable to admission to the hospital today. Discussed patient case and ED work-up with inpatient management physician Dr. Arenas who agrees patient's case warrants admission to the MedSurg unit. 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 Sony Disclaimer: Sony Disclaimer: This electronic medical record was generated, in whole or in part, using a voice recognition dictation system. Departure Departure Impression: Primary Impression: UTI (urinary tract infection) Qualified Codes: N39.0 - Urinary tract infection, site not specified; R31.9 - Hematuria, unspecified Additional Impression: Unable to care for self Disposition: ADMITTED INPATIENT Admitting Physician: TOMER (Admit to MedSurg unit to Dr. Arenas) Condition: STABLE Referrals: NO PCP (PCP) CHI JOVEL APRN Jun 27, 2021 10:49
[2021-06-27 11:03] LABS: BASO # 0.1 x10^3/uL (0.0-0.2); BASO % 1 % (0-3); EOS % 0 % (0-3); HEMATOCRIT 37.7 % (39.0-53.0); HEMOGLOBIN 13.5 g/dL (13.0-17.5); LYMPH # 0.6 x10^3/uL (1.0-4.8); LYMPH % 8 % (24-48); MEAN CORPUSCULAR HEMOGLOBIN 31 pg (25-35); MEAN CORPUSCULAR HGB CONC 36 g/dL (31-37); MEAN CORPUSCULAR VOLUME 86 fL (79-100); MONO # 2.2 x10^3/uL (0.0-1.1); MONO % 27 % (0-9); NEUT # 5.3 x10^3/uL (1.8-7.7); NEUT % 65 % (31-73); PLATELET COUNT 199 x10^3/uL (140-400); RED BLOOD COUNT 4.41 x10^6/uL (4.30-5.70); RED CELL DISTRIBUTION WIDTH 14.7 % (11.5-14.5); WHITE BLOOD COUNT 8.2 x10^3/uL (4.0-11.0)
[2021-06-27 11:10] LABS: BILIRUBIN,URINE NEGATIVE (NEG); CLARITY,URINE TURBID; COLOR,URINE AMBER; NITRITE,URINE POSITIVE (NEG); PH,URINE 6.5 (<5.0-8.0); PROTEIN,URINE 100 mg/dL (NEG-TRACE)
[2021-06-27 11:18] LABS: CALCIUM 9.1 mg/dL (8.5-10.1); CREATININE 1.4 mg/dL (0.7-1.3); GFR 49.4; POTASSIUM 3.8 mmol/L (3.5-5.1)
[2021-06-27 11:21] LABS: BACTERIA,URINE MANY /HPF (0-FEW); RBC,URINE >40 /HPF (0-2); WBC,URINE TNTC /HPF (0-4)
[2021-06-27 11:25] LABS: ALBUMIN 3.7 g/dL (3.4-5.0); ALBUMIN/GLOBULIN RATIO 0.8 (1.0-1.7); TOTAL BILIRUBIN 1.5 mg/dL (0.2-1.0); TOTAL PROTEIN 8.2 g/dL (6.4-8.2)
[2021-06-27 11:28] LABS: % BANDS 3 % (0-9); % BASOS 1 % (0-3); % LYMPHS 12 % (24-48); % MONOS 14 % (0-10); % SEGS 70 % (35-66); PLT ESTIMATE ADEQUATE (ADEQUATE)
[2021-06-27] MEDS ORDERED: cefTRIAXone IV Push 1 GM VIAL. IVP ONE (11:45)
[2021-06-27] MEDS ORDERED: IV NORMAL SALINE 1000ML BAG 1,000 ML IV ONE (12:00)
[2021-06-27 15:10] VITALS: BP 125/71
--- NOTE | 2021-06-27 15:53 | HP ---
DATE OF SERVICE: 06/27/2021 ADMIT DATE: 06/27/2021 CHIEF COMPLAINT: Lower extremity pain. HISTORY OF PRESENT ILLNESS: The patient is a pleasant 75-year-old male who presented to the ER with pain in his lower extremities and also has a suprapubic catheter that was leaking. He was covered in feces. He appears to not be able to take care of himself. He also has a UTI. I discussed the case with ER physician. We are going to admit the patient, get him cleaned up, give him some IV antibiotics and get him into a long-term care facility. PAST MEDICAL HISTORY: Chronic pain, urosepsis, UTIs, suprapubic Tripp catheter, continued tobacco abuse. ALLERGIES: None. FAMILY HISTORY: Hypertension. SOCIAL HISTORY: He does not drink. He smokes. He is retired. No drugs. MEDICATIONS: Reviewed, please refer to the MRAD. REVIEW OF SYSTEMS: GENERAL: No history of weight change, weakness or fevers. SKIN: No bruising, hair changes or rashes. EYES: No blurred, double or loss of vision. NOSE AND THROAT: No history of nosebleeds, hoarseness or sore throat. HEART: No history of palpitations, chest pain or shortness of breath on exertion. LUNGS: Denies cough, hemoptysis, wheezing or shortness of breath. GASTROINTESTINAL: Denies changes in appetite, nausea, vomiting, diarrhea or constipation. GENITOURINARY: No history of frequency, urgency, hesitancy or nocturia. NEUROLOGIC: Denies history of numbness, tingling, tremor or weakness. PSYCHIATRIC: No history of panic, anxiety or depression. ENDOCRINE: No history of heat or cold intolerance, polyuria or polydipsia. EXTREMITIES: He complains of leg pain. PHYSICAL EXAMINATION: VITALS: Within normal limits and are stable. GENERAL: No apparent distress. Alert and oriented. HEENT: Normal cephalic atraumatic, external auditory canals are patent. EYES: Extraocular muscles are intact, pupils are equally round and reactive to light and accommodation. MUSCULOSKELETAL: Well developed, well nourished, good range of motion. ENDOCRINE: No thyromegaly was palpated. LYMPHATICS: No cervical chain or axillary nodes were noted. HEMATOPOIETIC: No bruising. NECK: Supple, no JVD, no thyromegaly was noted. LUNGS: Clear to auscultation in all lung washburn without rhonchi or wheezing. HEART: RRR, S1, S2 present. Peripheral pulses intact, no obvious murmurs were noted. ABDOMEN: He has a suprapubic Tripp in place. EXTREMITIES: He has 2+ edema. NEUROLOGIC: Normal speech, normal tone. A and O x 3, moves all extremities, no obvious focal deficits. PSYCHIATRIC: Normal affect, normal mood. Stable. SKIN: He was covered in feces that has been cleaned up. VASCULAR: Good capillary refill, neurovascular bundle appears to be intact. LABORATORY DATA: White count is 8, hemoglobin 13, platelets 199. Electrolytes: Sodium 135, potassium 3.8, chloride 99, bicarbonate 29, BUN 18, creatinine 1.4, glucose 112. COVID testing is negative. Urinalysis shows large amount of leukocyte esterase and too numerous to count white cells. ASSESSMENT AND PLAN: Failure to thrive, inability to take care of himself, poor hygiene, urinary tract infection, hyponatremia, acute kidney injury. The patient has been admitted. We will consult case management social worker for long-term care placement. Encourage p.o. intake. Home meds. Deep venous thrombosis prophylaxis. Full code. IV antibiotics, IV fluids. CARLENE/MIMI/JESSI DR: CARLENE/patric TID: [id number]
[2021-06-27] MEDS ORDERED: MELO15TA23 PO (15:54)
[2021-06-27] MEDS ORDERED: tamsulosin PO (15:54)
[2021-06-27] MEDS ORDERED: FINA5TAB4 PO (15:54)
[2021-06-27 19:00] VITALS: BP 91/61
[2021-06-27] MEDS: TAMSULOSIN 0.4 MG CAP.ER.24H. PO SCH (22:56)
[2021-06-27 23:00] VITALS: BP 127/65
[2021-06-28 03:00] VITALS: BP 120/67
[2021-06-28 07:00] VITALS: BP 108/56
--- NOTE | 2021-06-28 09:01 | PDOC ---
[employer] PROGRESS NOTE Date of Service DOS: DATE: 06/28/21 TIME: 09:00 Chief Complaint Chief Complaint Failure to thrive, inability to take care of himself, poor hygiene, urinary tract infection, hyponatremia, acute kidney injury. Chronic pain, UTIs, suprapubic Tripp History of Present Illness History of Present Illness 06/28/2021 Patient seen and examined Chart reviewed Discussed with RN Vitals/I&O Vitals/I&O: Vital Signs Date Time Temp Pulse Resp B/P (MAP) Pulse Ox O2 Delivery O2 Flow Rate FiO2 06/28/21 07:00 98.7 86 18 108/56 (73) 99 Room Air 98.7 I & O 06/27/21 06/27/21 06/28/21 15:00 23:00 07:00 Intake Total 120 ml 200 ml Balance 120 ml 200 ml Physical Exam General: No acute distress Heart: No murmurs Lungs: Clear Abdomen: Normal bowel sounds Extremities: No clubbing Skin: No rashes Labs Labs: Laboratory Tests Test 06/27/21 10:44 06/27/21 10:59 06/27/21 11:20 White Blood Count 8.2 x10^3/uL (4.0-11.0) Red Blood Count 4.41 x10^6/uL (4.30-5.70) Hemoglobin 13.5 g/dL (13.0-17.5) Hematocrit 37.7 % (39.0-53.0) Mean Corpuscular Volume 86 fL (79-100) Mean Corpuscular Hemoglobin 31 pg (25-35) Mean Corpuscular Hemoglobin Concent 36 g/dL (31-37) Red Cell Distribution Width 14.7 % (11.5-14.5) Platelet Count 199 x10^3/uL (140-400) Neutrophils (%) (Auto) 65 % (31-73) Lymphocytes (%) (Auto) 8 % (24-48) Monocytes (%) (Auto) 27 % (0-9) Eosinophils (%) (Auto) 0 % (0-3) Basophils (%) (Auto) 1 % (0-3) Neutrophils # (Auto) 5.3 x10^3/uL (1.8-7.7) Lymphocytes # (Auto) 0.6 x10^3/uL (1.0-4.8) Monocytes # (Auto) 2.2 x10^3/uL (0.0-1.1) Eosinophils # (Auto) 0.0 x10^3/uL (0.0-0.7) Basophils # (Auto) 0.1 x10^3/uL (0.0-0.2) Segmented Neutrophils % 70 % (35-66) Band Neutrophils % 3 % (0-9) Lymphocytes % 12 % (24-48) Monocytes % 14 % (0-10) Basophils % 1 % (0-3) Platelet Estimate Adequate (ADEQUATE) Sodium Level 135 mmol/L (136-145) Potassium Level 3.8 mmol/L (3.5-5.1) Chloride Level 99 mmol/L (98-107) Carbon Dioxide Level 29 mmol/L (21-32) Anion Gap 7 (6-14) Blood Urea Nitrogen 18 mg/dL (8-26) Creatinine 1.4 mg/dL (0.7-1.3) Estimated GFR (Cockcroft-Gault) 49.4 BUN/Creatinine Ratio 13 (6-20) Glucose Level 112 mg/dL (70-99) Calcium Level 9.1 mg/dL (8.5-10.1) Total Bilirubin 1.5 mg/dL (0.2-1.0) Aspartate Amino Transf (AST/SGOT) 18 U/L (15-37) Alanine Aminotransferase (ALT/SGPT) 18 U/L (16-63) Alkaline Phosphatase 39 U/L (46-116) C-Reactive Protein, Quantitative 169.0 mg/L (0-3.3) Total Protein 8.2 g/dL (6.4-8.2) Albumin 3.7 g/dL (3.4-5.0) Albumin/Globulin Ratio 0.8 (1.0-1.7) Urine Collection Type Suprapubic Urine Color Ashley Urine Clarity Turbid Urine pH 6.5 (<5.0-8.0) Urine Specific [place] 1.025 (1.000-1.030) Urine Protein 100 mg/dL (NEG-TRACE) Urine Glucose (UA) Negative mg/dL (NEG) Urine Ketones (Stick) Trace mg/dL (NEG) Urine Blood Large (NEG) Urine Nitrite Positive (NEG) Urine Bilirubin Negative (NEG) Urine Urobilinogen Dipstick 1.0 mg/dL (0.2 mg/dL) Urine Leukocyte Esterase Large (NEG) Urine RBC >40 /HPF (0-2) Urine WBC Tntc /HPF (0-4) Urine Bacteria Many /HPF (0-FEW) SARS-CoV-2 Antigen (Rapid) Negative (NEGATIVE) Assessment and Plan Assessmemt and Plan Problems Medical Problems: (1) Unable to care for self Status: Acute Failure to thrive, inability to take care of himself, poor hygiene, urinary tract infection, hyponatremia, acute kidney injury. Chronic pain, UTIs, suprapubic Tripp Plan IV antibiotics Wound halfway meds DVT prophylaxis Monitor suprapubic Tripp Full code Awaiting long-term care placement Long-term prognosis guarded Comment Review of Relevant I have reviewed the following items lara (where applicable) has been applied. Medications: Current Medications Medications (Trade) Dose Ordered Sig/Eli Route PRN Reason Start Time Stop Time Status Last Admin Dose Admin Morphine Sulfate (Morphine Sulfate) 4 mg 1X ONCE IVP 06/27/21 10:15 06/27/21 10:16 DC 06/27/21 11:09 Ceftriaxone Sodium (Rocephin) 1 gm 1X ONCE IVP 06/27/21 11:45 06/27/21 11:46 DC 06/27/21 12:30 Sodium Chloride 1,000 ml @ 125 mls/hr 1X ONCE IV 06/27/21 12:00 06/27/21 19:59 DC 06/27/21 12:30 Tamsulosin HCl (Flomax) 0.4 mg QHS PO 06/27/21 21:00 06/27/21 22:56 Justifications for Admission Other Justification TRENT WHITTEN III DO Jun 28, 2021 09:01
[2021-06-28] MEDS: FINASTERIDE 5 MG TABLET. PO SCH (09:03)
[2021-06-28] MEDS: traMADol 50 MG TABLET PO PRN ×2 (09:08→16:52)
[2021-06-28 10:49] VITALS: BP 140/67
--- NOTE | 2021-06-28 11:12 | NUR ---
SS following for discharge planning. SS reviewed pt chart and discussed with pt RN. Pt is from home at [facility] and is currently on room air. COVID19 negative. Pt on IV Rocephin. Pt has had services in the past with [facility], ; fax [phone]. SS will continue to follow for discharge planning.
[2021-06-28] MEDS: cefTRIAXone IV Push 1 GM VIAL. IVP SCH (12:54)
[2021-06-28 14:53] VITALS: BP 143/106
[2021-06-28] MEDS ORDERED: ACETAMINOPHEN 325 MG TABLET. PO PRN (17:00)
[2021-06-28 19:00] VITALS: BP 118/74
[2021-06-28] MEDS: TAMSULOSIN 0.4 MG CAP.ER.24H. PO SCH (20:48)
[2021-06-28] MEDS: LACTOBACILLUS RHAMNOSUS GG 1 CAPSULE. PO SCH (20:48)
[2021-06-28 22:52] VITALS: BP 119/70
[2021-06-29 03:00] VITALS: BP 122/68
[2021-06-29 04:37] LABS: BASO % 0 % (0-3); EOS % 0 % (0-3); HEMATOCRIT 30.6 % (39.0-53.0); HEMOGLOBIN 10.7 g/dL (13.0-17.5); LYMPH # 0.8 x10^3/uL (1.0-4.8); LYMPH % 10 % (24-48); MEAN CORPUSCULAR HEMOGLOBIN 30 pg (25-35); MEAN CORPUSCULAR HGB CONC 35 g/dL (31-37); MEAN CORPUSCULAR VOLUME 86 fL (79-100); MONO % 25 % (0-9); NEUT # 5.2 x10^3/uL (1.8-7.7); NEUT % 64 % (31-73); PLATELET COUNT 158 x10^3/uL (140-400); RED BLOOD COUNT 3.57 x10^6/uL (4.30-5.70); RED CELL DISTRIBUTION WIDTH 14.1 % (11.5-14.5)
[2021-06-29 04:51] LABS: CREATININE 1.2 mg/dL (0.7-1.3); POTASSIUM 3.4 mmol/L (3.5-5.1)
[2021-06-29 07:00] VITALS: BP 129/66
[2021-06-29] MEDS: traMADol 50 MG TABLET PO PRN ×4 (07:21→19:53)
[2021-06-29] MEDS: LACTOBACILLUS RHAMNOSUS GG 1 CAPSULE. PO SCH ×2 (09:35→19:54)
[2021-06-29] MEDS: FINASTERIDE 5 MG TABLET. PO SCH (09:35)
[2021-06-29 11:00] VITALS: BP 129/57
--- NOTE | 2021-06-29 12:47 | PDOC ---
[employer] PROGRESS NOTE Date of Service DOS: DATE: 06/29/21 TIME: 12:45 Chief Complaint Chief Complaint Failure to thrive, inability to take care of himself, poor hygiene, urinary tract infection, hyponatremia, acute kidney injury. Chronic pain, UTIs, suprapubic Tripp History of Present Illness History of Present Illness The patient is a pleasant 75-year-old male who presented to the ER with pain in his lower extremities and also has a suprapubic catheter that was leaking. He was covered in feces. He appears to not be able to take care of himself. He also has a UTI. I discussed the case with ER physician. We are going to admit the patient, get him cleaned up, give him some IV antibiotics and get him into a long-term care facility. 06/28/2021 Patient seen and examined Chart reviewed Discussed with RN 06/29 Patient evaluated examined at bedside. Chart reviewed plan of care discussed with bedside RN. Patient can discharge once placement found. He understands this may take a couple of days. Continue Rocephin for UTI. Okay to switch to oral cefdinir on discharge. Vitals/I&O Vitals/I&O: Vital Signs Date Time Temp Pulse Resp B/P (MAP) Pulse Ox O2 Delivery O2 Flow Rate FiO2 06/29/21 11:00 98.8 89 18 129/57 (81) 100 Room Air 98.8 I & O 06/28/21 06/28/21 06/29/21 15:00 23:00 07:00 Intake Total 480 ml 1040 ml 800 ml Output Total 950 ml Balance 480 ml 1040 ml -150 ml Physical Exam General: Alert, No acute distress Heart: No murmurs Lungs: Clear Abdomen: Normal bowel sounds, Soft, No tenderness Extremities: No clubbing, No edema, Normal pulses Skin: No rashes Labs Labs: Laboratory Tests Test 06/29/21 03:40 White Blood Count 8.0 x10^3/uL (4.0-11.0) Red Blood Count 3.57 x10^6/uL (4.30-5.70) Hemoglobin 10.7 g/dL (13.0-17.5) Hematocrit 30.6 % (39.0-53.0) Mean Corpuscular Volume 86 fL (79-100) Mean Corpuscular Hemoglobin 30 pg (25-35) Mean Corpuscular Hemoglobin Concent 35 g/dL (31-37) Red Cell Distribution Width 14.1 % (11.5-14.5) Platelet Count 158 x10^3/uL (140-400) Neutrophils (%) (Auto) 64 % (31-73) Lymphocytes (%) (Auto) 10 % (24-48) Monocytes (%) (Auto) 25 % (0-9) Eosinophils (%) (Auto) 0 % (0-3) Basophils (%) (Auto) 0 % (0-3) Neutrophils # (Auto) 5.2 x10^3/uL (1.8-7.7) Lymphocytes # (Auto) 0.8 x10^3/uL (1.0-4.8) Monocytes # (Auto) 2.0 x10^3/uL (0.0-1.1) Eosinophils # (Auto) 0.0 x10^3/uL (0.0-0.7) Basophils # (Auto) 0.0 x10^3/uL (0.0-0.2) Sodium Level 131 mmol/L (136-145) Potassium Level 3.4 mmol/L (3.5-5.1) Chloride Level 96 mmol/L (98-107) Carbon Dioxide Level 26 mmol/L (21-32) Anion Gap 9 (6-14) Blood Urea Nitrogen 14 mg/dL (8-26) Creatinine 1.2 mg/dL (0.7-1.3) Estimated GFR (Cockcroft-Gault) 59.0 Glucose Level 109 mg/dL (70-99) Calcium Level 8.0 mg/dL (8.5-10.1) Assessment and Plan Assessmemt and Plan Problems Medical Problems: (1) Unable to care for self Status: Acute Failure to thrive, inability to take care of himself, poor hygiene, urinary tract infection, hyponatremia, acute kidney injury. Chronic pain, UTIs, suprapubic Tripp Plan IV antibiotics. Can switch to oral antibiotics on discharge Wound [facility] meds DVT prophylaxis Monitor suprapubic Tripp Full code Awaiting long-term care placement Long-term prognosis guarded Comment Review of Relevant I have reviewed the following items lara (where applicable) has been applied. Medications: Current Medications Medications (Trade) Dose Ordered Sig/Eli Route PRN Reason Start Time Stop Time Status Last Admin Dose Admin Lactobacillus Rhamnosus (Culturelle) 1 cap BID PO 06/28/21 21:00 06/29/21 09:35 Acetaminophen (Tylenol) 650 mg PRN Q6HRS PRN PO MILD PAIN / TEMP > 100.3'F 06/28/21 17:00 06/28/21 20:48 Justifications for Admission Other Justification INNA CARTER MD Jun 29, 2021 12:47
[2021-06-29] MEDS: cefTRIAXone IV Push 1 GM VIAL. IVP SCH (14:35)
[2021-06-29 15:00] VITALS: BP 125/67
[2021-06-29] MEDS ORDERED: MORPHINE SULFATE 2 MG/ML INJ. IVP PRN (17:30)
[2021-06-29 19:00] VITALS: BP 134/76
[2021-06-29] MEDS: TAMSULOSIN 0.4 MG CAP.ER.24H. PO SCH (19:53)
[2021-06-29] MEDS: CEFDINIR 300 MG CAPSULE PO SCH (19:53)
[2021-06-29 23:08] VITALS: BP 131/71
[2021-06-30 03:17] VITALS: BP 107/88
--- NOTE | 2021-06-30 06:40 | NUR ---
IP: Pt urine culture is + for (R) Serratia requiring contact precautions.
[2021-06-30 07:00] VITALS: BP 126/61
[2021-06-30 07:07] LABS: BASO % 0 % (0-3); EOS % 1 % (0-3); HEMATOCRIT 30.5 % (39.0-53.0); HEMOGLOBIN 10.8 g/dL (13.0-17.5); LYMPH # 0.8 x10^3/uL (1.0-4.8); LYMPH % 13 % (24-48); MEAN CORPUSCULAR HEMOGLOBIN 31 pg (25-35); MEAN CORPUSCULAR HGB CONC 36 g/dL (31-37); MEAN CORPUSCULAR VOLUME 86 fL (79-100); MONO # 1.1 x10^3/uL (0.0-1.1); MONO % 18 % (0-9); NEUT # 4.1 x10^3/uL (1.8-7.7); NEUT % 69 % (31-73); PLATELET COUNT 179 x10^3/uL (140-400); RED BLOOD COUNT 3.55 x10^6/uL (4.30-5.70); RED CELL DISTRIBUTION WIDTH 14.1 % (11.5-14.5)
[2021-06-30 07:27] LABS: CALCIUM 8.6 mg/dL (8.5-10.1); CREATININE 1.2 mg/dL (0.7-1.3); POTASSIUM 3.7 mmol/L (3.5-5.1)
[2021-06-30] MEDS: CEFDINIR 300 MG CAPSULE PO SCH (09:23)
[2021-06-30] MEDS: LACTOBACILLUS RHAMNOSUS GG 1 CAPSULE. PO SCH ×2 (09:23→19:53)
[2021-06-30] MEDS: MELOXICAM 7.5 MG TABLET PO SCH (09:23)
[2021-06-30] MEDS: FINASTERIDE 5 MG TABLET. PO SCH (09:23)
[2021-06-30] MEDS: traMADol 50 MG TABLET PO PRN (09:24)
[2021-06-30 11:00] VITALS: BP 128/69
--- NOTE | 2021-06-30 11:40 | NUR ---
Attempted to get pt up in chair. Unable to. Pt unable to stand up and bear weight. Discussed about going to rehab. Pt open to that. Will notify tie up worker.
--- NOTE | 2021-06-30 12:24 | PDOC ---
[facility] PROGRESS NOTE Date of Service DOS: DATE: 06/30/21 TIME: 12:23 Chief Complaint Chief Complaint Failure to thrive, inability to take care of himself, poor hygiene, urinary tract infection, hyponatremia, acute kidney injury. Chronic pain, UTIs, suprapubic Tripp History of Present Illness History of Present Illness 06/30/2021 Patient seen and examined He is working with physical therapy Discussed with RN Chart reviewed We need to get him to rehab but he is kind of refusing at this point he is worried about financial issues The patient is a pleasant 75-year-old male who presented to the ER with pain in his lower extremities and also has a suprapubic catheter that was leaking. He was covered in feces. He appears to not be able to take care of himself. He also has a UTI. I discussed the case with ER physician. We are going to admit the patient, get him cleaned up, give him some IV antibiotics and get him into a long-term care facility. 06/28/2021 Patient seen and examined Chart reviewed Discussed with RN 06/29 Patient evaluated examined at bedside. Chart reviewed plan of care discussed with bedside RN. Patient can discharge once placement found. He understands this may take a couple of days. Continue Rocephin for UTI. Okay to switch to oral cefdinir on discharge. Vitals/I&O Vitals/I&O: Vital Signs Date Time Temp Pulse Resp B/P (MAP) Pulse Ox O2 Delivery O2 Flow Rate FiO2 06/30/21 11:00 98.7 80 20 128/69 (88) 94 Room Air 98.7 I & O 06/29/21 06/29/21 06/30/21 15:00 23:00 07:00 Intake Total 540 ml 240 ml Output Total 850 ml 400 ml 450 ml Balance -310 ml -160 ml -450 ml Physical Exam General: Alert, No acute distress Heart: No murmurs Lungs: Clear Abdomen: Normal bowel sounds, Soft, No tenderness Extremities: No clubbing, No edema, Normal pulses Skin: No rashes Labs Labs: Laboratory Tests Test 06/30/21 06:40 White Blood Count 6.0 x10^3/uL (4.0-11.0) Red Blood Count 3.55 x10^6/uL (4.30-5.70) Hemoglobin 10.8 g/dL (13.0-17.5) Hematocrit 30.5 % (39.0-53.0) Mean Corpuscular Volume 86 fL (79-100) Mean Corpuscular Hemoglobin 31 pg (25-35) Mean Corpuscular Hemoglobin Concent 36 g/dL (31-37) Red Cell Distribution Width 14.1 % (11.5-14.5) Platelet Count 179 x10^3/uL (140-400) Neutrophils (%) (Auto) 69 % (31-73) Lymphocytes (%) (Auto) 13 % (24-48) Monocytes (%) (Auto) 18 % (0-9) Eosinophils (%) (Auto) 1 % (0-3) Basophils (%) (Auto) 0 % (0-3) Neutrophils # (Auto) 4.1 x10^3/uL (1.8-7.7) Lymphocytes # (Auto) 0.8 x10^3/uL (1.0-4.8) Monocytes # (Auto) 1.1 x10^3/uL (0.0-1.1) Eosinophils # (Auto) 0.0 x10^3/uL (0.0-0.7) Basophils # (Auto) 0.0 x10^3/uL (0.0-0.2) Sodium Level 132 mmol/L (136-145) Potassium Level 3.7 mmol/L (3.5-5.1) Chloride Level 97 mmol/L (98-107) Carbon Dioxide Level 24 mmol/L (21-32) Anion Gap 11 (6-14) Blood Urea Nitrogen 7 mg/dL (8-26) Creatinine 1.2 mg/dL (0.7-1.3) Estimated GFR (Cockcroft-Gault) 59.0 Glucose Level 95 mg/dL (70-99) Calcium Level 8.6 mg/dL (8.5-10.1) Assessment and Plan Assessmemt and Plan Problems Medical Problems: (1) Unable to care for self Status: Acute Acute respiratory failure secondary to combination of acute COPD exacerbation, interstitial lung disease and mild acute on chronic diastolic heart failure. Pulmonary team following. Abnormal CT chest - concerning for ILD with significant mediastinal lymphadenopathy. Pulmonology following with tentative plans for bronchoscopy wh en less hypoxic Acute on chronic diastolic heart failure - 2D echo in April 2021 showed normal LV systolic function with diastolic dysfunction. CAD - s/p PCI previously. Cardiology following. Hypertension: Controlled HLD - statin intolerant. On Zetia Hypokalemia - will check mag and K today Plan PT OT Wound longterm meds DVT prophylaxis Full code Discharge disposition pending we would like him to assisted if he will accept it? Comment Review of Relevant I have reviewed the following items lara (where applicable) has been applied. Medications: Current Medications Medications (Trade) Dose Ordered Sig/Eli Route PRN Reason Start Time Stop Time Status Last Admin Dose Admin Cefdinir (Omnicef) 300 mg BID PO 06/29/21 21:00 06/30/21 09:23 Meloxicam (Mobic) 15 mg DAILY PO 06/30/21 09:00 06/30/21 09:23 Justifications for Admission Other Justification TRENT WHITTEN III DO Jun 30, 2021 12:24
--- NOTE | 2021-06-30 14:17 | NUR ---
SW following. Discussed with RN, pt from home with in as [place] [employer]. Therapy recommending SNF. SW met with pt, pt does not want to make the decision without his . Pt called his who stated she doesn't want to talk about it and doesn't want to talk to anybody here, and continued to hang up on pt. Pt tried multiple times to phone his with the same outcome. Pt won't even let SW screen at a facility and attempt for insurance approval without first speaking with his . SW attempted multiple times to convince pt of this. SW notified RN, not sure how to move forward with SNF screen. Pt hoping his legs will be better throughout the weekend. Pt has [facility] at home. SW will continue to follow.
[2021-06-30 15:00] VITALS: BP 124/70
[2021-06-30] MEDS ORDERED: AMIKACIN PER PHARMACY MC PRN (17:00)
[2021-06-30] MEDS ORDERED: PIP/TAZO PER PHARMACY MC PRN (17:45)
[2021-06-30 19:00] VITALS: BP 149/78
[2021-06-30] MEDS: PIPERACILLIN/TAZOBACTAM 3.375 GM in IV NORMAL SALINE 50ML 50 ML IV SCH (19:50)
[2021-06-30] MEDS: TAMSULOSIN 0.4 MG CAP.ER.24H. PO SCH (19:53)
[2021-06-30] MEDS ORDERED: AMIKACIN SULFATE IV ONE (20:00)
[2021-06-30] MEDS ORDERED: DEXTROSE 5% IV ONE (20:00)
[2021-06-30 23:00] VITALS: BP 149/71
[2021-07-01] MEDS: PIPERACILLIN/TAZOBACTAM 3.375 GM in IV NORMAL SALINE 50ML 50 ML IV SCH ×2 (01:10→05:36)
[2021-07-01 03:09] VITALS: BP 128/65
[2021-07-01] MEDS ORDERED: [UNRECOGNIZED DRUG - REMARK] MC ONE (05:00)
[2021-07-01 07:00] VITALS: BP 125/57
[2021-07-01 07:49] LABS: BASO % 0 % (0-3); EOS # 0.1 x10^3/uL (0.0-0.7); EOS % 1 % (0-3); HEMATOCRIT 29.4 % (39.0-53.0); HEMOGLOBIN 10.3 g/dL (13.0-17.5); LYMPH # 0.9 x10^3/uL (1.0-4.8); LYMPH % 17 % (24-48); MEAN CORPUSCULAR HEMOGLOBIN 30 pg (25-35); MEAN CORPUSCULAR HGB CONC 35 g/dL (31-37); MEAN CORPUSCULAR VOLUME 85 fL (79-100); MONO # 0.8 x10^3/uL (0.0-1.1); MONO % 15 % (0-9); NEUT # 3.6 x10^3/uL (1.8-7.7); NEUT % 67 % (31-73); PLATELET COUNT 195 x10^3/uL (140-400); RED BLOOD COUNT 3.46 x10^6/uL (4.30-5.70); RED CELL DISTRIBUTION WIDTH 13.9 % (11.5-14.5); WHITE BLOOD COUNT 5.3 x10^3/uL (4.0-11.0)
[2021-07-01 08:40] LABS: CALCIUM 8.5 mg/dL (8.5-10.1); CREATININE 1.2 mg/dL (0.7-1.3); POTASSIUM 3.3 mmol/L (3.5-5.1)
[2021-07-01] MEDS: MELOXICAM 7.5 MG TABLET PO SCH (08:54)
[2021-07-01] MEDS: LACTOBACILLUS RHAMNOSUS GG 1 CAPSULE. PO SCH ×2 (08:54→22:12)
[2021-07-01] MEDS: FINASTERIDE 5 MG TABLET. PO SCH (08:54)
[2021-07-01] MEDS: traMADol 50 MG TABLET PO PRN ×2 (08:55→16:14)
--- NOTE | 2021-07-01 10:53 | PDOC ---
[employer] PROGRESS NOTE Date of Service DOS: DATE: 07/01/21 TIME: 10:52 Chief Complaint Chief Complaint Failure to thrive, inability to take care of himself, poor hygiene, urinary tract infection, hyponatremia, acute kidney injury. Chronic pain, UTIs, suprapubic Tripp History of Present Illness History of Present Illness 07/01 Patient seen and examined at bedside. He still programs for rehab still has been able to talk with his . See social work note from yesterday for full details of the situation. Either way continue working with physical therapy as tolerated. Continue Merrem for ESBL UTI. If he still here Saturday will consider infectious disease consult. 06/30/2021 Patient seen and examined He is working with physical therapy Discussed with RN Chart reviewed We need to get him to rehab but he is kind of refusing at this point he is worried about financial issues The patient is a pleasant 75-year-old male who presented to the ER with pain in his lower extremities and also has a suprapubic catheter that was leaking. He was covered in feces. He appears to not be able to take care of himself. He also has a UTI. I discussed the case with ER physician. We are going to admit the patient, get him cleaned up, give him some IV antibiotics and get him into a long-term care facility. 06/28/2021 Patient seen and examined Chart reviewed Discussed with RN 06/29 Patient evaluated examined at bedside. Chart reviewed plan of care discussed with bedside RN. Patient can discharge once placement found. He understands this may take a couple of days. Continue Rocephin for UTI. Okay to switch to oral cefdinir on discharge. Vitals/I&O Vitals/I&O: Vital Signs Date Time Temp Pulse Resp B/P (MAP) Pulse Ox O2 Delivery O2 Flow Rate FiO2 07/01/21 09:45 98 Room Air 07/01/21 07:00 98.8 80 20 125/57 (79) 98.8 I & O 06/30/21 06/30/21 07/01/21 15:00 23:00 07:00 Intake Total 420 ml 120 ml Output Total 900 ml 1500 ml Balance 420 ml -780 ml -1500 ml Physical Exam General: Alert, Oriented X3, Cooperative, No acute distress Heart: Regular rate, Normal S1, Normal S2, No murmurs Lungs: Clear Abdomen: Normal bowel sounds, Soft, No tenderness Extremities: No edema, Normal pulses Skin: No significant lesion Labs Labs: Laboratory Tests Test 07/01/21 07:30 White Blood Count 5.3 x10^3/uL (4.0-11.0) Red Blood Count 3.46 x10^6/uL (4.30-5.70) Hemoglobin 10.3 g/dL (13.0-17.5) Hematocrit 29.4 % (39.0-53.0) Mean Corpuscular Volume 85 fL (79-100) Mean Corpuscular Hemoglobin 30 pg (25-35) Mean Corpuscular Hemoglobin Concent 35 g/dL (31-37) Red Cell Distribution Width 13.9 % (11.5-14.5) Platelet Count 195 x10^3/uL (140-400) Neutrophils (%) (Auto) 67 % (31-73) Lymphocytes (%) (Auto) 17 % (24-48) Monocytes (%) (Auto) 15 % (0-9) Eosinophils (%) (Auto) 1 % (0-3) Basophils (%) (Auto) 0 % (0-3) Neutrophils # (Auto) 3.6 x10^3/uL (1.8-7.7) Lymphocytes # (Auto) 0.9 x10^3/uL (1.0-4.8) Monocytes # (Auto) 0.8 x10^3/uL (0.0-1.1) Eosinophils # (Auto) 0.1 x10^3/uL (0.0-0.7) Basophils # (Auto) 0.0 x10^3/uL (0.0-0.2) Sodium Level 134 mmol/L (136-145) Potassium Level 3.3 mmol/L (3.5-5.1) Chloride Level 98 mmol/L (98-107) Carbon Dioxide Level 27 mmol/L (21-32) Anion Gap 9 (6-14) Blood Urea Nitrogen 20 mg/dL (8-26) Creatinine 1.2 mg/dL (0.7-1.3) Estimated GFR (Cockcroft-Gault) 59.0 Glucose Level 107 mg/dL (70-99) Calcium Level 8.5 mg/dL (8.5-10.1) Assessment and Plan Assessmemt and Plan Problems Medical Problems: (1) Unable to care for self Status: Acute Acute respiratory failure secondary to combination of acute COPD exacerbation, interstitial lung disease and mild acute on chronic diastolic heart failure. Pulmonary team following. Abnormal CT chest - concerning for ILD with significant mediastinal lymphadenopathy. Pulmonology following with tentative plans for bronchoscopy when less hypoxic Acute on chronic diastolic heart failure - 2D echo in April 2021 showed normal LV systolic function with diastolic dysfunction. CAD - s/p PCI previously. Cardiology following. Hypertension: Controlled HLD - statin intolerant. On Zetia Hypokalemia - will check mag and K today Plan PT OT [facility] DVT prophylaxis Full code Discharge disposition pending we would like him to retirement if he will accept it? Comment Review of Relevant I have reviewed the following items lara (where applicable) has been applied. Medications: Current Medications Medications (Trade) Dose Ordered Sig/Eli Route PRN Reason Start Time Stop Time Status Last Admin Dose Admin Amikacin Sulfate (Amikacin Per Pharmacy) 1 each PRN DAILY PRN MC SEE COMMENTS 06/30/21 17:00 07/01/21 10:00 DC 06/30/21 19:10 Piperacillin Sod/ Tazobactam Sod 3.375 gm/Sodium Chloride 50 ml @ 100 mls/hr Q6HRS IV 06/30/21 18:00 07/01/21 10:01 DC 07/01/21 05:36 Amikacin Sulfate 1350 mg/Dextrose 105.4 ml @ 105.4 mls/ hr 1X ONCE IV 06/30/21 20:00 06/30/21 20:59 DC 06/30/21 20:42 Justifications for Admission Other Justification INNA CARTER MD Jul 01, 2021 10:53
[2021-07-01 11:00] VITALS: BP 110/64
[2021-07-01] MEDS: MEROPENEM 500 MG in IV NORMAL SALINE 50ML 50 ML IV SCH ×3 (13:44→23:29)
[2021-07-01 15:00] VITALS: BP 125/66
[2021-07-01] MEDS: LINEZOLID 600 MG TABLET PO SCH ×2 (16:13→22:12)
[2021-07-01 19:00] VITALS: BP 136/70
[2021-07-01] MEDS: TAMSULOSIN 0.4 MG CAP.ER.24H. PO SCH (22:12)
[2021-07-01 23:05] VITALS: BP 120/57
[2021-07-02 03:15] VITALS: BP 118/60
[2021-07-02] MEDS: MEROPENEM 500 MG in IV NORMAL SALINE 50ML 50 ML IV SCH ×3 (05:19→17:19)
[2021-07-02 07:00] VITALS: BP 123/66
[2021-07-02 07:47] LABS: BASO % 1 % (0-3); EOS # 0.1 x10^3/uL (0.0-0.7); EOS % 2 % (0-3); HEMATOCRIT 29.5 % (39.0-53.0); HEMOGLOBIN 10.4 g/dL (13.0-17.5); LYMPH # 1.2 x10^3/uL (1.0-4.8); LYMPH % 23 % (24-48); MEAN CORPUSCULAR HEMOGLOBIN 30 pg (25-35); MEAN CORPUSCULAR HGB CONC 35 g/dL (31-37); MEAN CORPUSCULAR VOLUME 85 fL (79-100); MONO # 0.8 x10^3/uL (0.0-1.1); MONO % 16 % (0-9); NEUT % 58 % (31-73); PLATELET COUNT 222 x10^3/uL (140-400); RED BLOOD COUNT 3.48 x10^6/uL (4.30-5.70); RED CELL DISTRIBUTION WIDTH 14.2 % (11.5-14.5); WHITE BLOOD COUNT 5.1 x10^3/uL (4.0-11.0)
[2021-07-02] MEDS: LACTOBACILLUS RHAMNOSUS GG 1 CAPSULE. PO SCH ×2 (08:05→22:08)
[2021-07-02] MEDS: MELOXICAM 7.5 MG TABLET PO SCH (08:06)
[2021-07-02] MEDS: LINEZOLID 600 MG TABLET PO SCH ×2 (08:06→22:07)
[2021-07-02] MEDS: traMADol 50 MG TABLET PO PRN ×3 (08:06→22:07)
[2021-07-02] MEDS: FINASTERIDE 5 MG TABLET. PO SCH (08:07)
[2021-07-02 08:27] LABS: CALCIUM 8.4 mg/dL (8.5-10.1); CREATININE 1.1 mg/dL (0.7-1.3); GFR 65.3; POTASSIUM 3.5 mmol/L (3.5-5.1)
[2021-07-02 11:00] VITALS: BP 128/59
--- NOTE | 2021-07-02 12:50 | PDOC ---
[employer] PROGRESS NOTE Date of Service DOS: DATE: 07/02/21 TIME: 12:49 Chief Complaint Chief Complaint Failure to thrive, inability to take care of himself, poor hygiene, urinary tract infection, hyponatremia, acute kidney injury. Chronic pain, UTIs, suprapubic Tripp History of Present Illness History of Present Illness 07/02 Patient evaluated examined at bedside. Still no answer about rehab. Continuing to treat UTI. He is on Merrem and linezolid. We will put an infectious disease consult on this patient will remain here today. consult for definitive antibiotic treatment. I will continue current plan of care. 07/01 Patient seen and examined at bedside. He still programs for rehab still has been able to talk with his . See social work note from yesterday for full details of the situation. Either way continue working with physical therapy as tolerated. Continue Merrem for ESBL UTI. If he still here Saturday will consider infectious disease consult. 06/30/2021 Patient seen and examined He is working with physical therapy Discussed with RN Chart reviewed We need to get him to rehab but he is kind of refusing at this point he is worried about financial issues The patient is a pleasant 75-year-old male who presented to the ER with pain in his lower extremities and also has a suprapubic catheter that was leaking. He was covered in feces. He appears to not be able to take care of himself. He also has a UTI. I discussed the case with ER physician. We are going to admit the patient, get him cleaned up, give him some IV antibiotics and get him into a long-term care facility. 06/28/2021 Patient seen and examined Chart reviewed Discussed with RN 06/29 Patient evaluated examined at bedside. Chart reviewed plan of care discussed with bedside RN. Patient can discharge once placement found. He understands this may take a couple of days. Continue Rocephin for UTI. Okay to switch to oral cefdinir on discharge. Vitals/I&O Vitals/I&O: Vital Signs Date Time Temp Pulse Resp B/P (MAP) Pulse Ox O2 Delivery O2 Flow Rate FiO2 07/02/21 08:59 96 Room Air 07/02/21 07:00 97.4 66 16 123/66 (85) 97.4 I & O 07/01/21 07/01/21 07/02/21 15:00 23:00 07:00 Output Total 1000 ml 300 ml Balance -1000 ml -300 ml Physical Exam General: Alert, Oriented X3, Cooperative, No acute distress Heart: Regular rate, Normal S1, Normal S2, No murmurs Lungs: Clear Abdomen: Normal bowel sounds, Soft, No tenderness Extremities: No edema, Normal pulses Skin: No significant lesion Labs Labs: Laboratory Tests Test 07/02/21 07:25 White Blood Count 5.1 x10^3/uL (4.0-11.0) Red Blood Count 3.48 x10^6/uL (4.30-5.70) Hemoglobin 10.4 g/dL (13.0-17.5) Hematocrit 29.5 % (39.0-53.0) Mean Corpuscular Volume 85 fL (79-100) Mean Corpuscular Hemoglobin 30 pg (25-35) Mean Corpuscular Hemoglobin Concent 35 g/dL (31-37) Red Cell Distribution Width 14.2 % (11.5-14.5) Platelet Count 222 x10^3/uL (140-400) Neutrophils (%) (Auto) 58 % (31-73) Lymphocytes (%) (Auto) 23 % (24-48) Monocytes (%) (Auto) 16 % (0-9) Eosinophils (%) (Auto) 2 % (0-3) Basophils (%) (Auto) 1 % (0-3) Neutrophils # (Auto) 3.0 x10^3/uL (1.8-7.7) Lymphocytes # (Auto) 1.2 x10^3/uL (1.0-4.8) Monocytes # (Auto) 0.8 x10^3/uL (0.0-1.1) Eosinophils # (Auto) 0.1 x10^3/uL (0.0-0.7) Basophils # (Auto) 0.0 x10^3/uL (0.0-0.2) Sodium Level 135 mmol/L (136-145) Potassium Level 3.5 mmol/L (3.5-5.1) Chloride Level 100 mmol/L (98-107) Carbon Dioxide Level 26 mmol/L (21-32) Anion Gap 9 (6-14) Blood Urea Nitrogen 19 mg/dL (8-26) Creatinine 1.1 mg/dL (0.7-1.3) Estimated GFR (Cockcroft-Gault) 65.3 Glucose Level 93 mg/dL (70-99) Calcium Level 8.4 mg/dL (8.5-10.1) Assessment and Plan Assessmemt and Plan Problems Medical Problems: (1) Unable to care for self Status: Acute Comment Review of Relevant I have reviewed the following items lara (where applicable) has been applied. Medications: Current Medications Medications (Trade) Dose Ordered Sig/Eli Route PRN Reason Start Time Stop Time Status Last Admin Dose Admin Linezolid (Zyvox) 600 mg BID PO 07/01/21 14:00 07/02/21 08:06 Justifications for Admission Other Justification INNA CARTER MD Jul 02, 2021 12:50
[2021-07-02 15:00] VITALS: BP 128/62
[2021-07-02 19:00] VITALS: BP 139/65
[2021-07-02] MEDS: TAMSULOSIN 0.4 MG CAP.ER.24H. PO SCH (22:08)
[2021-07-02 23:45] VITALS: BP 129/61
[2021-07-03] MEDS: MEROPENEM 500 MG in IV NORMAL SALINE 50ML 50 ML IV SCH ×4 (02:00→18:15)
[2021-07-03 03:27] VITALS: BP 125/59
[2021-07-03 05:06] LABS: BASO % 1 % (0-3); EOS # 0.2 x10^3/uL (0.0-0.7); EOS % 3 % (0-3); HEMATOCRIT 29.1 % (39.0-53.0); HEMOGLOBIN 10.1 g/dL (13.0-17.5); LYMPH # 1.9 x10^3/uL (1.0-4.8); LYMPH % 31 % (24-48); MEAN CORPUSCULAR HEMOGLOBIN 30 pg (25-35); MEAN CORPUSCULAR HGB CONC 35 g/dL (31-37); MEAN CORPUSCULAR VOLUME 86 fL (79-100); MONO # 1.2 x10^3/uL (0.0-1.1); MONO % 19 % (0-9); NEUT # 2.8 x10^3/uL (1.8-7.7); NEUT % 46 % (31-73); PLATELET COUNT 235 x10^3/uL (140-400); RED BLOOD COUNT 3.39 x10^6/uL (4.30-5.70); RED CELL DISTRIBUTION WIDTH 14.3 % (11.5-14.5); WHITE BLOOD COUNT 6.2 x10^3/uL (4.0-11.0)
[2021-07-03 05:10] LABS: CALCIUM 8.4 mg/dL (8.5-10.1); CREATININE 1.1 mg/dL (0.7-1.3); GFR 65.3; POTASSIUM 3.8 mmol/L (3.5-5.1)
[2021-07-03 07:00] VITALS: BP 128/62
[2021-07-03] MEDS: MELOXICAM 7.5 MG TABLET PO SCH (09:07)
[2021-07-03] MEDS: LACTOBACILLUS RHAMNOSUS GG 1 CAPSULE. PO SCH ×2 (09:07→21:34)
[2021-07-03] MEDS: FINASTERIDE 5 MG TABLET. PO SCH (09:07)
[2021-07-03] MEDS: LINEZOLID 600 MG TABLET PO SCH ×2 (09:07→21:36)
[2021-07-03 11:00] VITALS: BP 133/68
--- NOTE | 2021-07-03 11:14 | CONS ---
DATE OF CONSULTATION: 07/03/2021 REFERRING PHYSICIAN: Beth Arenas DO REASON FOR CONSULTATION: Antibiotic management. HISTORY OF PRESENT ILLNESS: A 75-year-old male presented to the ER with complaints of leakage from the suprapubic catheter site with cloudy malodorous urine 3 days prior to admission. He denies any fevers, chills, nausea, vomiting, diarrhea, abdominal pain, shortness of breath, chest pain. He also had some knee pain, which is chronic. The patient has chronic pain, unable to pass urine, so he has had a suprapubic catheter placed. He had his catheter replaced about a month ago at [facility]. The patient continues to smoke. White count was normal. UA showed Morganella Serratia and Enterococcus faecalis and Actinotignum. ID consultation has been requested for antibiotic management. Today, the patient denies any fevers, chills, nausea, vomiting, diarrhea, abdominal pain, symptoms, shortness of breath, cough, headache, sore throat, difficulty swallowing. PAST MEDICAL HISTORY: Chronic pain, suprapubic catheter, continued tobacco abuse. ALLERGIES: None. FAMILY HISTORY: As per HPI. SOCIAL HISTORY: Positive for smoking. Retired. No drugs. Does not drink. Lives with family at home. CURRENT MEDICATIONS: Reviewed. Please refer to MRAD. REVIEW OF SYSTEMS: Negative except for HPI. PHYSICAL EXAMINATION: VITAL SIGNS: Temperature 97.4, pulse 83, respiratory rate 18, blood pressure 128/62, oxygen saturation 99% on room air. GENERAL: Alert, oriented x 3 male, lying in bed comfortably, in no acute distress. HEENT: Normocephalic, atraumatic. Anicteric. NECK: Supple. LUNGS: Clear bilaterally. No wheezing. HEART: S1, S2. ABDOMEN: Soft, nontender. Suprapubic catheter site has purulent drainage from the catheter site. No rebound, no guarding. EXTREMITIES: No edema, no cyanosis. DERMATOLOGIC: Warm, dry. No generalized rash. NEUROLOGIC: Alert and oriented x 3, grossly nonfocal. PSYCHIATRIC: Calm and cooperative. MUSCULOSKELETAL: No changes of effusion or decrease in range of motion noted except for chronic pain. LABORATORY DATA: WBC 6.2, hemoglobin 10.1, platelets 235. Sodium 136, potassium 3.8, chloride 101, BUN 18, creatinine 1.1. UA shows large blood, positive nitrite, large leukocyte esterase. SARS-COVID negative. Micro urine culture positive for Morganella Serratia, Enterobacter and Actinotignum. IMAGING: None. 04/05/2021, polymicrobial organism as above. IMPRESSION: 1. Suprapubic catheter associated urinary tract infection with polymicrobial organism. 2. Chronic pain. 3. Fever. 4. Leukocytosis. 5. Tobaccoism. 6. Failure to thrive. 7. Acute kidney injury. 8. Hyponatremia. 9. Anemia. RECOMMENDATIONS: 1. Continue meropenem and linezolid. 2. The patient will need PICC line placement. 3. When ready for discharge, transition meropenem to Invanz to complete total of 14 days of treatment. 4. Continue linezolid for a total of 14 days. 5. Change suprapubic catheter with local care as the patient has purulence at the local site. 6. Monitor labs and cultures. 7. Continue supportive care. 8. Discussed with nursing staff. Thank you for consulting Infectious Disease to participate in this patient's care. If you have any questions, do not hesitate to contact me. [facility] [address]: Melissa TID: [id number] [facility] HOSPITALChalo
--- NOTE | 2021-07-03 11:54 | PDOC ---
[employer] PROGRESS NOTE Date of Service DOS: DATE: 07/03/21 TIME: 11:53 Chief Complaint Chief Complaint Failure to thrive, inability to take care of himself, poor hygiene, urinary tract infection, hyponatremia, acute kidney injury. Chronic pain, UTIs, suprapubic Tripp History of Present Illness History of Present Illness 07/03/2021 Patient seen and examined He is still quite disabled and very weak He adamantly refuses to go to [facility] but I spoke with case management and he now has agreed to go if his agrees that he should go Chart reviewed Discussed with RN 07/02 Patient evaluated examined at bedside. Still no answer about rehab. Continuing to treat UTI. He is on Merrem and linezolid. We will put an infectious disease consult on this patient will remain here today. consult for definitive antibiotic treatment. I will continue current plan of care. 07/01 Patient seen and examined at bedside. He still programs for rehab still has been able to talk with his . See social work note from yesterday for full details of the situation. Either way continue working with physical therapy as tolerated. Continue Merrem for ESBL UTI. If he still here Saturday will consider infectious disease consult. 06/30/2021 Patient seen and examined He is working with physical therapy Discussed with RN Chart reviewed We need to get him to rehab but he is kind of refusing at this point he is worri ed about financial issues The patient is a pleasant 75-year-old male who presented to the ER with pain in his lower extremities and also has a suprapubic catheter that was leaking. He was covered in feces. He appears to not be able to take care of himself. He also has a UTI. I discussed the case with ER physician. We are going to admit the patient, get him cleaned up, give him some IV antibiotics and get him into a long-term care facility. 06/28/2021 Patient seen and examined Chart reviewed Discussed with RN 06/29 Patient evaluated examined at bedside. Chart reviewed plan of care discussed with bedside RN. Patient can discharge once placement found. He understands this may take a couple of days. Continue Rocephin for UTI. Okay to switch to o ral cefdinir on discharge. Vitals/I&O Vitals/I&O: Vital Signs Date Time Temp Pulse Resp B/P (MAP) Pulse Ox O2 Delivery O2 Flow Rate FiO2 07/03/21 11:00 97.5 62 18 133/68 (89) 100 Room Air 97.5 I & O 07/02/21 07/02/21 07/03/21 15:00 23:00 07:00 Intake Total 400 ml 880 ml Output Total 500 ml 350 ml Balance 400 ml -500 ml 530 ml Physical Exam General: Alert, Oriented X3, Cooperative, No acute distress Heart: Regular rate, Normal S1, Normal S2, No murmurs Lungs: Clear Abdomen: Normal bowel sounds, Soft, No tenderness Extremities: No edema, Normal pulses Skin: No significant lesion Labs Labs: Laboratory Tests Test 07/03/21 04:00 White Blood Count 6.2 x10^3/uL (4.0-11.0) Red Blood Count 3.39 x10^6/uL (4.30-5.70) Hemoglobin 10.1 g/dL (13.0-17.5) Hematocrit 29.1 % (39.0-53.0) Mean Corpuscular Volume 86 fL (79-100) Mean Corpuscular Hemoglobin 30 pg (25-35) Mean Corpuscular Hemoglobin Concent 35 g/dL (31-37) Red Cell Distribution Width 14.3 % (11.5-14.5) Platelet Count 235 x10^3/uL (140-400) Neutrophils (%) (Auto) 46 % (31-73) Lymphocytes (%) (Auto) 31 % (24-48) Monocytes (%) (Auto) 19 % (0-9) Eosinophils (%) (Auto) 3 % (0-3) Basophils (%) (Auto) 1 % (0-3) Neutrophils # (Auto) 2.8 x10^3/uL (1.8-7.7) Lymphocytes # (Auto) 1.9 x10^3/uL (1.0-4.8) Monocytes # (Auto) 1.2 x10^3/uL (0.0-1.1) Eosinophils # (Auto) 0.2 x10^3/uL (0.0-0.7) Basophils # (Auto) 0.0 x10^3/uL (0.0-0.2) Sodium Level 136 mmol/L (136-145) Potassium Level 3.8 mmol/L (3.5-5.1) Chloride Level 101 mmol/L (98-107) Carbon Dioxide Level 29 mmol/L (21-32) Anion Gap 6 (6-14) Blood Urea Nitrogen 18 mg/dL (8-26) Creatinine 1.1 mg/dL (0.7-1.3) Estimated GFR (Cockcroft-Gault) 65.3 Glucose Level 92 mg/dL (70-99) Calcium Level 8.4 mg/dL (8.5-10.1) Assessment and Plan Assessmemt and Plan Problems Medical Problems: (1) Unable to care for self Status: Acute Acute respiratory failure secondary to combination of acute COPD exacerbation, interstitial lung disease and mild acute on chronic diastolic heart failure. Pulmonary team following. Abnormal CT chest - concerning for ILD with significant mediastinal lymphaden opathy. Pulmonology following with tentative plans for bronchoscopy when less hypoxic Acute on chronic diastolic heart failure - 2D echo in April 2021 showed normal LV systolic function with diastolic dysfunction. CAD - s/p PCI previously. Cardiology following. Hypertension: Controlled HLD - statin intolerant. On Zetia Hypokalemia - will check mag and K today Plan PT OT Wound group home meds DVT prophylaxis Full code Discharge disposition pending we would like him to [facility] if he will accept it? (fiber worker is working with his on this) Appreciate everyone's help with this difficult case Comment Review of Relevant I have reviewed the following items lara (where applicable) has been applied. Justifications for Admission Other Justification TRENT WHITTEN III DO Jul 03, 2021 11:54
--- NOTE | 2021-07-03 12:05 | NUR ---
SS following up with discharge planning. SS reviewed pt chart and discussed with pt RN. Pt is currently on room air. COVID19 negative. Pt currently on IV Meropenem and PO Zyvox. Pt will need IV Invanz QD for 14 days and PO Zyvox on discharge. PICC line ordered. PT/OT recommended assisted unit. SS met with pt in room and spoke with pt's spouse Joanna, , via phone to discuss discharge planning. Pt's spouse reported that they cannot do IV antibiotics at home. Pt and spouse agreeable to assisted unit at either [facility] or [facility] for the course of antibiotics needed. [facility] out of network with pt's insurance. Referral phoned and faxed to [facility], ; fax [phone][facility] if they can [facility]. SS will continue to follow for discharge planning. Addendum: 07/03/21 at 1320 by DOLORES DUMAS SS Pt insurance out of network at [facility]. Pt's family requesting referral to [facility], ; fax [phone]. SS phoned and faxed referral as requested. Addendum: 07/03/21 at 1321 by DOLORES DUMAS SS CANCEL ADDENDUM. WRONG PT.
[2021-07-03] MEDS ORDERED: LIDOCAINE WITH 8.4% SOD BICARB 3 ML DISP.SYRIN. ONE (13:43)
[2021-07-03] MEDS ORDERED: LIDOCAINE WITH 8.4% SOD BICARB 3 ML DISP.SYRIN. INJ ONE (14:00)
[2021-07-03 15:00] VITALS: BP 155/69
--- NOTE | 2021-07-03 15:02 | RAD ---
Date: 07/03/2021 Exam: Fluoroscopic and ultrasound guided peripheral central venous catheter placement. Indication: Consent: The procedure was explained in its entirety to the patient or the patients designated repres entative by a member of the treatment team, including a discussion of the risks, benefits and commonl y accepted alternatives to the procedure, as well as the expected consequences of no therapy whatsoev er. Discussion of the risks included, but was not limited to, those that are most frequent and thos e that are rare but possibly severe or life-threatening, as well as the possibility of unforeseen com plications. Discussion: A timeout procedure was performed. The patient was prepped and draped using maximum sterile techniq ue, including the use of: Current guideline approved cutaneous antisepsis, a large sterile sheet to e stablish a sterile field. Additionally the turner machine operator wore a hat, mask, sterile gloves, a sterile gown during the procedure as well as practiced acceptable hand hygiene prior to placing the line. 1% lidoc lyudmila was administered for local anesthesia. Ultrasound evaluation demonstrates a patent right basilic vein. Reference images were saved in the edical record. The selected vein was accessed using micropuncture technique. A guidewire was advanced centrally. The PICC line was cut to length, and advanced through a peel-away sheath such that it's tip resides at the cavoatrial junction. The peel-away sheath a sheath was removed. The catheter was s ecured in place. The catheter was found to flush and aspirate normally.. Sterile dressings were appli ed. No immediate complications were identified. Fluoroscopy time: 0.1 minutes Dose area product: 1 Gycm2 Impression: Successful placement of a right upper extremity PICC line Electronically signed by: Moses John MD (07/03/2021 3:00 PM) [id number]
[2021-07-03 19:00] VITALS: BP 131/60
[2021-07-03] MEDS: TAMSULOSIN 0.4 MG CAP.ER.24H. PO SCH (21:34)
[2021-07-03] MEDS: traMADol 50 MG TABLET PO PRN (21:34)
[2021-07-03 23:00] VITALS: BP 133/57
[2021-07-04] MEDS: MEROPENEM 500 MG in IV NORMAL SALINE 50ML 50 ML IV SCH ×4 (00:02→18:20)
[2021-07-04 03:00] VITALS: BP 127/61
[2021-07-04 07:00] VITALS: BP 133/100
[2021-07-04 07:51] LABS: BASO % 1 % (0-3); EOS # 0.2 x10^3/uL (0.0-0.7); EOS % 4 % (0-3); HEMATOCRIT 31.7 % (39.0-53.0); HEMOGLOBIN 10.6 g/dL (13.0-17.5); LYMPH # 1.6 x10^3/uL (1.0-4.8); LYMPH % 30 % (24-48); MEAN CORPUSCULAR HEMOGLOBIN 29 pg (25-35); MEAN CORPUSCULAR HGB CONC 34 g/dL (31-37); MEAN CORPUSCULAR VOLUME 87 fL (79-100); MONO % 19 % (0-9); NEUT # 2.4 x10^3/uL (1.8-7.7); NEUT % 47 % (31-73); PLATELET COUNT 260 x10^3/uL (140-400); RED BLOOD COUNT 3.65 x10^6/uL (4.30-5.70); RED CELL DISTRIBUTION WIDTH 14.3 % (11.5-14.5); WHITE BLOOD COUNT 5.2 x10^3/uL (4.0-11.0)
--- NOTE | 2021-07-04 07:51 | PDOC ---
[employer] PROGRESS NOTE Date of Service DOS: DATE: 07/04/21 TIME: 07:48 Chief Complaint Chief Complaint A/P: Urinary tract infection - Suprapubic catheter associated urinary tract infection with polymicrobial organism. Chronic pain. Sepsis - due to UTI Tobacco use - counseled on cessation Failure to thrive Inability to take care of himself Acute kidney injury - likely vasomotor nephropathy from sepsis Hyponatremia - improved Anemia - likely of chronic disease Hyponatremia, acute kidney injury. Suprapubic Tripp History of Present Illness History of Present Illness Afebrile. Status post PICC placement for 14 days of Invanz and Zyvox. Labs stable. He is asking to be put on the bedpan to have a bowel movement. He is amenable to going to SNF short-term. No chest pain or shortness of breath 07/03: Patient seen and examined. He is still quite disabled and very weak. He now has agreed to go to SNF if his agrees that he should go 07/02 Patient evaluated examined at bedside. Still no answer about rehab. Continuing to treat UTI. He is on Merrem and linezolid. We will put an infectious disease consult on this patient will remain here today. consult for definitive antibiotic treatment. I will continue current plan of care. 07/01 Patient seen and examined at bedside. He still programs for rehab still has been able to talk with his . See social work note from yesterday for full details of the situation. Either way continue working with physical therapy as tolerated. Continue Merrem for ESBL UTI. If he still here Saturday will consider infectious disease consult. 06/30/2021 Patient seen and examined He is working with physical therapy Discussed with RN Chart reviewed We need to get him to rehab but he is kind of refusing at this point he is worried about financial issues The patient is a pleasant 75-year-old male who presented to the ER with pain in his lower extremities and also has a suprapubic catheter that was leaking. He was covered in feces. He appears to not be able to take care of himself. He also has a UTI. I discussed the case with ER physician. We are going to admit the patient, get him cleaned up, give him some IV antibiotics and get him into a long-term care facility. 06/28/2021 Patient seen and examined Chart reviewed Discussed with RN 06/29 Patient evaluated examined at bedside. Chart reviewed plan of care discussed with bedside RN. Patient can discharge once placement found. He understands this may take a couple of days. Continue Rocephin for UTI. Okay to switch to oral cefdinir on discharge. Vitals/I&O Vitals/I&O: Vital Signs Date Time Temp Pulse Resp B/P (MAP) Pulse Ox O2 Delivery O2 Flow Rate FiO2 07/04/21 03:00 97.6 70 18 127/61 (83) 99 97.6 07/03/21 22:04 Room Air I & O 07/03/21 07/03/21 07/04/21 15:00 23:00 07:00 Intake Total 100 ml 240 ml Output Total 600 ml 250 ml Balance -500 ml -10 ml Physical Exam General: Alert, Oriented X3, Cooperative, No acute distress Heart: Regular rate, Normal S1, Normal S2, No murmurs Lungs: Clear Abdomen: Normal bowel sounds, Soft, No tenderness Extremities: No edema, Normal pulses Skin: No significant lesion Assessment and Plan Assessmemt and Plan Problems Medical Problems: (1) Unable to care for self Status: Acute Comment Review of Relevant I have reviewed the following items lara (where applicable) has been applied. Medications: Current Medications Medications (Trade) Dose Ordered Sig/Eli Route PRN Reason Start Time Stop Time Status Last Admin Dose Admin Lidocaine HCl (Buffered Lidocaine 1%) 6 ml 1X ONCE INJ 07/03/21 14:00 07/03/21 14:01 DC 07/03/21 14:25 Justifications for Admission Other Justification INNA MARAVILLA MD Jul 04, 2021 07:50
[2021-07-04 08:05] LABS: CALCIUM 8.6 mg/dL (8.5-10.1); CREATININE 1.1 mg/dL (0.7-1.3); GFR 65.3; POTASSIUM 4.2 mmol/L (3.5-5.1)
--- NOTE | 2021-07-04 09:03 | PDOC ---
Infectious Disease Note Subjective: Subjective Patient had nausea and vomiting earlier today Denies any abdominal pain Denies any fevers chills Still continues to have drainage from the SPC site Vital Signs: Vital Signs Vital Signs Date Time Temp Pulse Resp B/P (MAP) Pulse Ox O2 Delivery O2 Flow Rate FiO2 07/04/21 03:00 97.6 70 18 127/61 (83) 99 97.6 07/03/21 22:04 Room Air Physical Exam: PHYSICAL EXAM GENERAL: Alert, oriented x 3 male, lying in bed comfortably, in no acute distress. HEENT: Normocephalic, atraumatic. Anicteric. NECK: Supple. LUNGS: Clear bilaterally. No wheezing. HEART: S1, S2. ABDOMEN: Soft, nontender. Suprapubic catheter site has purulent drainage from the catheter site. No rebound, no guarding. EXTREMITIES: No edema, no cyanosis. DERMATOLOGIC: Warm, dry. No generalized rash. NEUROLOGIC: Alert and oriented x 3, grossly nonfocal. PSYCHIATRIC: Calm and cooperative. MUSCULOSKELETAL: No changes of effusion or decrease in range of motion noted except for chronic pain. Medications: Inpatient Meds: Medications reviewed. Labs: Lab Laboratory Tests Test 07/04/21 07:35 White Blood Count 5.2 x10^3/uL (4.0-11.0) Red Blood Count 3.65 x10^6/uL (4.30-5.70) Hemoglobin 10.6 g/dL (13.0-17.5) Hematocrit 31.7 % (39.0-53.0) Mean Corpuscular Volume 87 fL (79-100) Mean Corpuscular Hemoglobin 29 pg (25-35) Mean Corpuscular Hemoglobin Concent 34 g/dL (31-37) Red Cell Distribution Width 14.3 % (11.5-14.5) Platelet Count 260 x10^3/uL (140-400) Neutrophils (%) (Auto) 47 % (31-73) Lymphocytes (%) (Auto) 30 % (24-48) Monocytes (%) (Auto) 19 % (0-9) Eosinophils (%) (Auto) 4 % (0-3) Basophils (%) (Auto) 1 % (0-3) Neutrophils # (Auto) 2.4 x10^3/uL (1.8-7.7) Lymphocytes # (Auto) 1.6 x10^3/uL (1.0-4.8) Monocytes # (Auto) 1.0 x10^3/uL (0.0-1.1) Eosinophils # (Auto) 0.2 x10^3/uL (0.0-0.7) Basophils # (Auto) 0.0 x10^3/uL (0.0-0.2) Sodium Level 139 mmol/L (136-145) Potassium Level 4.2 mmol/L (3.5-5.1) Chloride Level 103 mmol/L (98-107) Carbon Dioxide Level 29 mmol/L (21-32) Anion Gap 7 (6-14) Blood Urea Nitrogen 14 mg/dL (8-26) Creatinine 1.1 mg/dL (0.7-1.3) Estimated GFR (Cockcroft-Gault) 65.3 Glucose Level 85 mg/dL (70-99) Calcium Level 8.6 mg/dL (8.5-10.1) Objective: Assessment: 1. Suprapubic catheter associated urinary tract infection with polymicrobial organism. Morganella, ESBL Serratia and Enterococcus faecalis 2. Chronic pain. 3. Fever. 4. Leukocytosis. 5. Tobaccoism. 6. Failure to thrive. 7. Acute kidney injury. 8. Hyponatremia. 9. Anemia. Plan: Plan of Care 1. Continue meropenem and linezolid. 2. The patient will need PICC line placement. 3. When ready for discharge, transition meropenem to Invanz to complete total treatment of 14 days of treatment. 4. Change suprapubic catheter with local care as the patient still has purulence at the local site. 5. Monitor labs and cultures. 6. Continue supportive care. Discussed with nursing staff. ARTHUR MCQUEEN MD Jul 04, 2021 09:03
[2021-07-04] MEDS: FINASTERIDE 5 MG TABLET. PO SCH (10:03)
[2021-07-04] MEDS: LACTOBACILLUS RHAMNOSUS GG 1 CAPSULE. PO SCH ×2 (10:03→20:47)
[2021-07-04] MEDS: LINEZOLID 600 MG TABLET PO SCH (10:03)
[2021-07-04] MEDS: MELOXICAM 7.5 MG TABLET PO SCH (10:03)
--- NOTE | 2021-07-04 10:41 | NUR ---
SS following up with discharge planning. SS reviewed pt chart and discussed with pt RN. Pt is currently on room air. COVID19 negative. PT/OT recommended alf unit. Pt currently on IV Meropenem and PO Zyvox. Pt needing 14 days of IV Invanz post discharge. PICC line in place. Pt accepted at [facility], ; fax [phone], pending insurance approval. [facility] requesting carve out from [facility] for IV antibiotics. SS will continue to follow for discharge planning.
[2021-07-04 11:00] VITALS: BP 117/57
[2021-07-04 15:00] VITALS: BP 129/60
[2021-07-04 19:51] VITALS: BP 143/56
[2021-07-04] MEDS: TAMSULOSIN 0.4 MG CAP.ER.24H. PO SCH (20:47)
[2021-07-04 23:29] VITALS: BP 117/52
[2021-07-05] MEDS: MEROPENEM 500 MG in IV NORMAL SALINE 50ML 50 ML IV SCH ×3 (02:12→13:02)
[2021-07-05 03:35] VITALS: BP 121/69
[2021-07-05 07:00] VITALS: BP 135/69
[2021-07-05 07:14] LABS: BASO % 1 % (0-3); EOS # 0.2 x10^3/uL (0.0-0.7); EOS % 4 % (0-3); HEMATOCRIT 31.2 % (39.0-53.0); HEMOGLOBIN 10.8 g/dL (13.0-17.5); LYMPH # 1.9 x10^3/uL (1.0-4.8); LYMPH % 34 % (24-48); MEAN CORPUSCULAR HEMOGLOBIN 30 pg (25-35); MEAN CORPUSCULAR HGB CONC 35 g/dL (31-37); MEAN CORPUSCULAR VOLUME 86 fL (79-100); MONO # 1.1 x10^3/uL (0.0-1.1); MONO % 19 % (0-9); NEUT # 2.3 x10^3/uL (1.8-7.7); NEUT % 42 % (31-73); PLATELET COUNT 242 x10^3/uL (140-400); RED BLOOD COUNT 3.62 x10^6/uL (4.30-5.70); RED CELL DISTRIBUTION WIDTH 14.1 % (11.5-14.5); WHITE BLOOD COUNT 5.5 x10^3/uL (4.0-11.0)
[2021-07-05 07:15] LABS: CALCIUM 8.3 mg/dL (8.5-10.1); CREATININE 1.1 mg/dL (0.7-1.3); GFR 65.3; POTASSIUM 4.2 mmol/L (3.5-5.1)
--- NOTE | 2021-07-05 08:43 | PDOC ---
Infectious Disease Note Subjective: Subjective Pt is demanding to go home instead of [facility] Denies any f/n/v/d/ abdominal pain Refuses for IV abx and requesting po antibiotics instead Vital Signs: Vital Signs Vital Signs Date Time Temp Pulse Resp B/P (MAP) Pulse Ox O2 Delivery O2 Flow Rate FiO2 07/05/21 07:00 97.8 60 18 135/69 (91) 98 97.8 07/05/21 03:35 Room Air Physical Exam: PHYSICAL EXAM GENERAL: Alert, oriented x 3 male, lying in bed comfortably, in no acute distress. HEENT: Normocephalic, atraumatic. Anicteric. NECK: Supple. LUNGS: Clear bilaterally. No wheezing. HEART: S1, S2. ABDOMEN: Soft, nontender. Suprapubic catheter site clean,. No rebound, no guarding. EXTREMITIES: No edema, no cyanosis. DERMATOLOGIC: Warm, dry. No generalized rash. NEUROLOGIC: Alert and oriented x 3, grossly nonfocal. PSYCHIATRIC: Calm and cooperative. MUSCULOSKELETAL: No changes of effusion or decrease in range of motion noted except for chronic pain. Medications: Inpatient Meds: Medications reviewed. Labs: Lab Laboratory Tests Test 07/05/21 06:15 White Blood Count 5.5 x10^3/uL (4.0-11.0) Red Blood Count 3.62 x10^6/uL (4.30-5.70) Hemoglobin 10.8 g/dL (13.0-17.5) Hematocrit 31.2 % (39.0-53.0) Mean Corpuscular Volume 86 fL (79-100) Mean Corpuscular Hemoglobin 30 pg (25-35) Mean Corpuscular Hemoglobin Concent 35 g/dL (31-37) Red Cell Distribution Width 14.1 % (11.5-14.5) Platelet Count 242 x10^3/uL (140-400) Neutrophils (%) (Auto) 42 % (31-73) Lymphocytes (%) (Auto) 34 % (24-48) Monocytes (%) (Auto) 19 % (0-9) Eosinophils (%) (Auto) 4 % (0-3) Basophils (%) (Auto) 1 % (0-3) Neutrophils # (Auto) 2.3 x10^3/uL (1.8-7.7) Lymphocytes # (Auto) 1.9 x10^3/uL (1.0-4.8) Monocytes # (Auto) 1.1 x10^3/uL (0.0-1.1) Eosinophils # (Auto) 0.2 x10^3/uL (0.0-0.7) Basophils # (Auto) 0.0 x10^3/uL (0.0-0.2) Sodium Level 138 mmol/L (136-145) Potassium Level 4.2 mmol/L (3.5-5.1) Chloride Level 102 mmol/L (98-107) Carbon Dioxide Level 28 mmol/L (21-32) Anion Gap 8 (6-14) Blood Urea Nitrogen 15 mg/dL (8-26) Creatinine 1.1 mg/dL (0.7-1.3) Estimated GFR (Cockcroft-Gault) 65.3 Glucose Level 85 mg/dL (70-99) Calcium Level 8.3 mg/dL (8.5-10.1) Objective: Assessment: 1. Suprapubic catheter associated urinary tract infection with polymicrobial organism. Morganella, ESBL Serratia and Enterococcus faecalis 2. Chronic pain. 3. Fever. 4. Leukocytosis. 5. Tobaccoism. 6. Failure to thrive. 7. Acute kidney injury. 8. Hyponatremia. 9. Anemia. Plan: Plan of Care 1. Continue meropenem and linezolid for now. 2. Maintain PICC line 3. When ready for discharge, transition meropenem to Invanz and linezolid to complete total treatment of 14 days of treatment. 4. Follow suprapubic catheter care and exchange per protocol 5. Monitor labs and cultures. 6. Continue supportive care. Discussed with nursing staff. Pt is refusing for IV abx despite d/w pt about pros and cons. Next option will be fosfomycin x3 doses Q 48hr and linezolid D/W DR Corbin with pt today D/W RN DC PICC line before ARTHUR Salmeron MD Jul 05, 2021 08:43
[2021-07-05] MEDS: MELOXICAM 7.5 MG TABLET PO SCH (08:55)
[2021-07-05] MEDS: LACTOBACILLUS RHAMNOSUS GG 1 CAPSULE. PO SCH (08:55)
[2021-07-05] MEDS: FINASTERIDE 5 MG TABLET. PO SCH (08:56)
[2021-07-05] MEDS ORDERED: LINEZOLID 600 MG TABLET PO SCH (10:00)
--- NOTE | 2021-07-05 10:11 | NUR ---
SS following up with discharge planning. SS reviewed pt chart and discussed with pt RN. Pt is currently on room air. COVID19 negative. Pt on IV Meropenem and PO Zyvox. Pt needing IV Invanz for 14 days on discharge. PICC in place. PT/OT recommended fdc unit. Pt accepted at [facility], ; fax [phone]. Insurance authorization received for fdc unit. Currently awaiting carve out from insurance for IV antibiotics. SS will continue to follow for discharge planning. Addendum: 07/05/21 at 1217 by DOLORES DUMAS SS Pt approved to go to [facility]. ID and physician spoke with pt this morning and pt requesting to return to home at this time with [facility], ; fax [phone]. Antibiotics switched to PO and discharge orders received for home with home healthcare. SS phoned and faxed discharge orders and clinical to [facility]. Pt will discharge today and return to home via [facility] ambulance, , at 1400. Pt's RN notified.
--- NOTE | 2021-07-05 10:45 | PDOC ---
[employer] PROGRESS NOTE Date of Service DOS: DATE: 07/05/21 TIME: :31 Chief Complaint Chief Complaint A/P: Urinary tract infection - Suprapubic catheter associated urinary tract infection with polymicrobial organism. Chronic pain. Sepsis - due to UTI Tobacco use - counseled on cessation Failure to thrive Inability to take care of himself Acute kidney injury - likely vasomotor nephropathy from sepsis Hyponatremia - improved Anemia - likely of chronic disease Hyponatremia, acute kidney injury. Suprapubic Tripp History of Present Illness History of Present Illness Mr Golden is a 75-year-old male with chronic pain, smoker, suprapubic catheter in place who presented to the ER with pain in his lower extremities and also has a suprapubic catheter that was leaking. He was covered in feces. He appears to not be able to take care of himself and with a UTI. Admitted on IV antibiotics and plan to get him into a care facility for rehab. 06/28: Patient seen and examined 06/29: Patient evaluated examined at bedside. Chart reviewed plan of care discussed with bedside RN. Patient can discharge once placement found. He understands this may take a couple of days. Continue Rocephin for UTI. 06/30: He is working with physical therapy. We need to get him to rehab but he is kind of refusing at this point he is worried about financial issues 07/01: Patient seen and examined at bedside. He still programs for rehab still has been able to talk with his . See social work note from yesterday for full details of the situation. Either way continue working with physical therapy as tolerated. Continue Merrem for ESBL UTI. 07/02: Patient evaluated examined at bedside. Still no answer about rehab. Continuing to treat UTI. He is on Merrem and linezolid. We will put an infectious disease consult on this patient will remain here today. consult for definitive antibiotic treatment. I will continue current plan of care. 07/03: Patient seen and examined. He is still quite disabled and very weak. He now has agreed to go to SNF if his agrees that he should go 07/04: Afebrile. Status post PICC placement for total of 14 days of Invanz and Zyvox. Labs stable. He is asking to be put on the bedpan to have a bowel movement. He is amenable to going to SNF short-term. No chest pain or shortn ess of breath Afebrile. Labs stable. Tolerating meropenem and zyvox. No chest pain or shortness of breath. Discussed with his over the phone plan for skilled discharge. To continue antibiotics through 07/15/2021. Addendum: After discussion with patient and he is insistent about having home treatment of his UTI and never to be placed in SNF. I discussed with patient, and ID physician the only option is fosfomycin 3g x3 doses, 1st to be administered here and 9 additional days of linezolid. Will go home with home health. Patient notified and counseled on the risks and becomes upset with staff insisting he go home. Plans for discharge with home health. Vitals/I&O Vitals/I&O: Vital Signs Date Time Temp Pulse Resp B/P (MAP) Pulse Ox O2 Delivery O2 Flow Rate FiO2 07/05/21 07:00 97.8 60 18 135/69 (91) 98 97.8 07/05/21 03:35 Room Air I & O 07/04/21 07/04/21 07/05/21 15:00 23:00 07:00 Intake Total 360 ml Output Total 1000 ml 400 ml 1700 ml Balance -1000 ml -400 ml -1340 ml Physical Exam Physical Exam: GENERAL: Alert, oriented x 3 male, lying in bed comfortably, in no acute distress. HEENT: Normocephalic, atraumatic. Anicteric. NECK: Supple. LUNGS: Clear bilaterally. No wheezing. HEART: S1, S2. ABDOMEN: Soft, nontender. Suprapubic catheter site has purulent drainage from the catheter site. No rebound, no guarding. EXTREMITIES: No edema, no cyanosis. DERMATOLOGIC: Warm, dry. No generalized rash. NEUROLOGIC: Alert and oriented x 3, grossly nonfocal. PSYCHIATRIC: Calm and cooperative. MUSCULOSKELETAL: No changes of effusion or decrease in range of motion noted except for chronic pain. General: Alert, Oriented X3, Cooperative, No acute distress Heart: Regular rate, Normal S1, Normal S2, No murmurs Lungs: Clear Abdomen: Normal bowel sounds, Soft, No tenderness Extremities: No edema, Normal pulses Skin: No significant lesion Labs Labs: Laboratory Tests Test 10/27/21 06:15 White Blood Count 5.5 x10^3/uL (4.0-11.0) Red Blood Count 3.62 x10^6/uL (4.30-5.70) Hemoglobin 10.8 g/dL (13.0-17.5) Hematocrit 31.2 % (39.0-53.0) Mean Corpuscular Volume 86 fL (79-100) Mean Corpuscular Hemoglobin 30 pg (25-35) Mean Corpuscular Hemoglobin Concent 35 g/dL (31-37) Red Cell Distribution Width 14.1 % (11.5-14.5) Platelet Count 242 x10^3/uL (140-400) Neutrophils (%) (Auto) 42 % (31-73) Lymphocytes (%) (Auto) 34 % (24-48) Monocytes (%) (Auto) 19 % (0-9) Eosinophils (%) (Auto) 4 % (0-3) Basophils (%) (Auto) 1 % (0-3) Neutrophils # (Auto) 2.3 x10^3/uL (1.8-7.7) Lymphocytes # (Auto) 1.9 x10^3/uL (1.0-4.8) Monocytes # (Auto) 1.1 x10^3/uL (0.0-1.1) Eosinophils # (Auto) 0.2 x10^3/uL (0.0-0.7) Basophils # (Auto) 0.0 x10^3/uL (0.0-0.2) Sodium Level 138 mmol/L (136-145) Potassium Level 4.2 mmol/L (3.5-5.1) Chloride Level 102 mmol/L (98-107) Carbon Dioxide Level 28 mmol/L (21-32) Anion Gap 8 (6-14) Blood Urea Nitrogen 15 mg/dL (8-26) Creatinine 1.1 mg/dL (0.7-1.3) Estimated GFR (Cockcroft-Gault) 65.3 Glucose Level 85 mg/dL (70-99) Calcium Level 8.3 mg/dL (8.5-10.1) Assessment and Plan Assessmemt and Plan Problems Medical Problems: (1) Unable to care for self Status: Acute Comment Review of Relevant I have reviewed the following items lara (where applicable) has been applied. Medications: Current Medications Medications (Trade) Dose Ordered Sig/Eli Route PRN Reason Start Time Stop Time Status Last Admin Dose Admin Linezolid (Zyvox) 600 mg BID PO 07/05/21 10:00 07/05/21 08:55 Justifications for Admission Other Justification INNA MARAVILLA MD Jul 05, 2021 10:44
[2021-07-05] MEDS ORDERED: ACET325T21 PO (10:47)
[2021-07-05] MEDS ORDERED: LINE600T12 PO ×2 (10:47→11:51)
[2021-07-05] MEDS ORDERED: ERTA1VIA4 IJ (10:47)
[2021-07-05] MEDS ORDERED: LACT1CAP19 PO (10:47)
--- NOTE | 2021-07-05 10:50 | SNU/HH DC ---
DISCHARGE ORDERS DISCHARGE INFORMATION: DISCHARGE DATE: Jul 05, 2021 FINAL DIAGNOSIS Problems Medical Problems: (1) Unable to care for self Status: Acute CONDITION ON DISCHARGE: Stable CODE STATUS: Code Status: Full POST DISCHARGE ORDERS: ACTIVITY ORDERS: Activity as tolerated WEIGHT BEARING STATUS: As tolerated DIET AFTER DISCHARGE: Cardiac WOUND/INCISION CARE: Change dressing, Other, see below (Suprapubic catheter change monthly) CHECKS AFTER DISCHARGE: CHECKS AFTER DISCHARGE: Check blood press - daily, Check your Temp as needed, Weigh Yourself Daily FOLLOW-UP: LAB ORDERS FOR FOLLOW-UP: CBC, CMP, ESR TREATMENT/EQUIPMENT ORDERS: ADAPTIVE EQUIPMENT NEEDED: None Physical Therapy For: Evalulation/Treatment Occupational Therapy For: Evaluation/Treatment Speech Language Pathology For: Evaluation/Treatment DISCHARGE MEDICATIONS: Home Meds Active Scripts Ertapenem Sodium (Ertapenem) 1 Gm Vial, 1 GM IJ DAILY for MDRO for 9 Days, #9 EACH Prov:INNA MARAVILLA MD 07/05/21 Linezolid (ZYVOX) 600 Mg Tablet, 600 MG PO BID for UTI for 9 Days, #18 TAB Prov:INNA MARAVILLA MD 07/05/21 Lactobacillus Rhamnosus Gg (CULTURELLE) 1 Each Cap.sprink, 1 CAP PO BID for UTI for 14 Days, #28 CAP Prov:INNA MARAVILLA MD 07/05/21 Acetaminophen (ACETAMINOPHEN) 325 Mg Tablet, 650 MG PO PRN Q6HRS PRN for MILD PAIN / TEMP > 100.3'F for 30 Days, #120 TAB Prov:INNA MARAVILLA MD 07/05/21 Reported Medications Finasteride (FINASTERIDE) 5 Mg Tablet, 1 TAB PO DAILY for prostate 06/27/21 [tamsulosin] 0.4 CAPSULE No Conflict Check, 0.4 MG PO HS 06/27/21 Meloxicam (MELOXICAM) 15 Mg Tablet, 1 TAB PO DAILY for arthritis pain 06/27/21 Discontinued Reported Medications Amoxicillin/Potassium Clav (AUGMENTIN 875-125 TABLET) 1 Each Tablet, 1 TAB PO BID for uRINARY tRACT iNFECTION for 7 Days, #14 TAB 0 Refills 04/07/21 INNA MARAVILLA MD Jul 05, 2021 10:50
[2021-07-05 11:00] VITALS: BP 131/78
--- NOTE | 2021-07-05 11:54 | SNU/HH DC ---
DISCHARGE WITH HOME HEALTH DISCHARGE INFORMATION: Discharge Date: Jul 05, 2021 Final Diagnosis: Problems Medical Problems: (1) Unable to care for self Status: Acute Condition on Discharge: Stable CODE STATUS: Code Status: Full HOME HEALTH: Face to Face: I certify this patient is under my care and that I, or a nurse practitioner or physician's human resources assistant working with me, had a face to face encounter that meets the physician face to face encounter requirements with this patient on 07/05/2021. Retirement For: Assess & Educate Safety, Bowel/Bladder Training, Medication Management RN For Eval/Treatment: Yes Physical Therapy For: Evalulation/Treatment Occupational Therapy For: Evaluation/Treatment Pt Meets Homebound Status: Extreme weakness w/ amb. POST DISCHARGE ORDERS: Activity Instructions for Disc: Activity as tolerated Weight Bearing Status after Di: As tolerated DIET AFTER DISCHARGE: Cardiac Wound/Incision Care: Change dressing, Other, see below (Suprapubic catheter change monthly) CHECKS AFTER DISCHARGE: Checks after discharge: Check blood press - daily, Check your Temp as needed, Weigh Yourself Daily FOLLOW-UP: DC TO SNF LABS: CBC, CMP, ESR TREATMENT/EQUIPMENT ORDERS: Adaptive Equipment Issued: None CERTIFICATION STATEMENT: Certification Statement: Certification Statement: Based on the above finding, I certify that this patient is confined to the home and needs intermittent fpc care, physical therapy and/or speech therapy, or continues to need occupational therapy.~ This patient is under my care, and I have initiated the establishment of the plan of care.~ This patient will be followed by myself or a community physician who will periodically review the plan of care. Home Meds Active Scripts Linezolid (ZYVOX) 600 Mg Tablet, 600 MG PO BID for UTI for 9 Days, #18 TAB 0 Refills Prov:INNA MARAVILLA MD 07/05/21 Lactobacillus Rhamnosus Gg (CULTURELLE) 1 Each Cap.sprink, 1 CAP PO BID for UTI for 14 Days, #28 CAP Prov:INNA MARAVILLA MD 07/05/21 Acetaminophen (ACETAMINOPHEN) 325 Mg Tablet, 650 MG PO PRN Q6HRS PRN for MILD PAIN / TEMP > 100.3'F for 30 Days, #120 TAB Prov:INNA MARAVILLA MD 07/05/21 Reported Medications Finasteride (FINASTERIDE) 5 Mg Tablet, 1 TAB PO DAILY for prostate 06/27/21 [tamsulosin] 0.4 CAPSULE No Conflict Check, 0.4 MG PO HS 06/27/21 Meloxicam (MELOXICAM) 15 Mg Tablet, 1 TAB PO DAILY for arthritis pain 06/27/21 Discontinued Reported Medications Amoxicillin/Potassium Clav (AUGMENTIN 875-125 TABLET) 1 Each Tablet, 1 TAB PO BID for uRINARY tRACT iNFECTION for 7 Days, #14 TAB 0 Refills 04/07/21 INNA MARAVILLA MD Jul 05, 2021 11:54
[2021-07-05] MEDS ORDERED: FOSF3PAC6 PO (14:12)
--- NOTE | 2021-07-05 14:20 | PDOC3 ---
Discharge Summary Visit Information Date of Admission: Jun 27, 2021 Date of Discharge: Jul 05, 2021 Admitting Diagnosis: UTI, sepsis Final Diagnosis Problems Medical Problems: (1) Unable to care for self Status: Acute Brief Hospital Course Allergies Allergies Coded Allergies Type Severity Reaction Last Updated Verified I S O L A T I O N *CONTACT* Allergy Unknown 06/30/21 Yes No Known Medication Allergies Allergy Unknown 06/30/21 Yes Vital Signs Vital Signs Date Time Temp Pulse Resp B/P (MAP) Pulse Ox O2 Delivery O2 Flow Rate FiO2 07/05/21 11:00 97.7 59 18 131/78 (95) 97 97.7 07/05/21 08:00 Room Air Lab Results Laboratory Tests Test 07/04/21 07:35 07/05/21 06:15 White Blood Count 5.2 x10^3/uL (4.0-11.0) 5.5 x10^3/uL (4.0-11.0) Red Blood Count 3.65 x10^6/uL (4.30-5.70) 3.62 x10^6/uL (4.30-5.70) Hemoglobin 10.6 g/dL (13.0-17.5) 10.8 g/dL (13.0-17.5) Hematocrit 31.7 % (39.0-53.0) 31.2 % (39.0-53.0) Mean Corpuscular Volume 87 fL (79-100) 86 fL (79-100) Mean Corpuscular Hemoglobin 29 pg (25-35) 30 pg (25-35) Mean Corpuscular Hemoglobin Concent 34 g/dL (31-37) 35 g/dL (31-37) Red Cell Distribution Width 14.3 % (11.5-14.5) 14.1 % (11.5-14.5) Platelet Count 260 x10^3/uL (140-400) 242 x10^3/uL (140-400) Neutrophils (%) (Auto) 47 % (31-73) 42 % (31-73) Lymphocytes (%) (Auto) 30 % (24-48) 34 % (24-48) Monocytes (%) (Auto) 19 % (0-9) 19 % (0-9) Eosinophils (%) (Auto) 4 % (0-3) 4 % (0-3) Basophils (%) (Auto) 1 % (0-3) 1 % (0-3) Neutrophils # (Auto) 2.4 x10^3/uL (1.8-7.7) 2.3 x10^3/uL (1.8-7.7) Lymphocytes # (Auto) 1.6 x10^3/uL (1.0-4.8) 1.9 x10^3/uL (1.0-4.8) Monocytes # (Auto) 1.0 x10^3/uL (0.0-1.1) 1.1 x10^3/uL (0.0-1.1) Eosinophils # (Auto) 0.2 x10^3/uL (0.0-0.7) 0.2 x10^3/uL (0.0-0.7) Basophils # (Auto) 0.0 x10^3/uL (0.0-0.2) 0.0 x10^3/uL (0.0-0.2) Sodium Level 139 mmol/L (136-145) 138 mmol/L (136-145) Potassium Level 4.2 mmol/L (3.5-5.1) 4.2 mmol/L (3.5-5.1) Chloride Level 103 mmol/L (98-107) 102 mmol/L (98-107) Carbon Dioxide Level 29 mmol/L (21-32) 28 mmol/L (21-32) Anion Gap 7 (6-14) 8 (6-14) Blood Urea Nitrogen 14 mg/dL (8-26) 15 mg/dL (8-26) Creatinine 1.1 mg/dL (0.7-1.3) 1.1 mg/dL (0.7-1.3) Estimated GFR (Cockcroft-Gault) 65.3 65.3 Glucose Level 85 mg/dL (70-99) 85 mg/dL (70-99) Calcium Level 8.6 mg/dL (8.5-10.1) 8.3 mg/dL (8.5-10.1) Laboratory Tests Test 07/05/21 06:15 White Blood Count 5.5 x10^3/uL (4.0-11.0) Red Blood Count 3.62 x10^6/uL (4.30-5.70) Hemoglobin 10.8 g/dL (13.0-17.5) Hematocrit 31.2 % (39.0-53.0) Mean Corpuscular Volume 86 fL (79-100) Mean Corpuscular Hemoglobin 30 pg (25-35) Mean Corpuscular Hemoglobin Concent 35 g/dL (31-37) Red Cell Distribution Width 14.1 % (11.5-14.5) Platelet Count 242 x10^3/uL (140-400) Neutrophils (%) (Auto) 42 % (31-73) Lymphocytes (%) (Auto) 34 % (24-48) Monocytes (%) (Auto) 19 % (0-9) Eosinophils (%) (Auto) 4 % (0-3) Basophils (%) (Auto) 1 % (0-3) Neutrophils # (Auto) 2.3 x10^3/uL (1.8-7.7) Lymphocytes # (Auto) 1.9 x10^3/uL (1.0-4.8) Monocytes # (Auto) 1.1 x10^3/uL (0.0-1.1) Eosinophils # (Auto) 0.2 x10^3/uL (0.0-0.7) Basophils # (Auto) 0.0 x10^3/uL (0.0-0.2) Sodium Level 138 mmol/L (136-145) Potassium Level 4.2 mmol/L (3.5-5.1) Chloride Level 102 mmol/L (98-107) Carbon Dioxide Level 28 mmol/L (21-32) Anion Gap 8 (6-14) Blood Urea Nitrogen 15 mg/dL (8-26) Creatinine 1.1 mg/dL (0.7-1.3) Estimated GFR (Cockcroft-Gault) 65.3 Glucose Level 85 mg/dL (70-99) Calcium Level 8.3 mg/dL (8.5-10.1) Brief Hospital Course Mr Golden is a 75-year-old male with chronic pain, smoker, suprapubic catheter in place who presented to the ER with pain in his lower extremities and also has a suprapubic catheter that was leaking. He was covered in feces. He appears to not be able to take care of himself and with a UTI. Admitted on IV antibiotics and plan to get him into a care facility for rehab. 06/28: Patient seen and examined 06/29: Patient evaluated examined at bedside. Chart reviewed plan of care discussed with bedside RN. Patient can discharge once placement found. He understands this may take a couple of days. Continue Rocephin for UTI. 06/30: He is working with physical therapy. We need to get him to rehab but he is kind of refusing at this point he is worried about financial issues 07/01: Patient seen and examined at bedside. He still programs for rehab still has been able to talk with his . See social work note from yesterday for full details of the situation. Either way continue working with physical therap y as tolerated. Continue Merrem for ESBL UTI. 07/02: Patient evaluated examined at bedside. Still no answer about rehab. Con tinuing to treat UTI. He is on Merrem and linezolid. We will put an infectious disease consult on this patient will remain here today. consult for definitive antibiotic treatment. I will continue current plan of care. 07/03: Patient seen and examined. He is still quite disabled and very weak. He now has agreed to go to SNF if his agrees that he should go 07/04: Afebrile. Status post PICC placement for total of 14 days of Invanz and Zyvox. Labs stable. He is asking to be put on the bedpan to have a bowel movement. He is amenable to going to SNF short-term. No chest pain or shortness of breath Day of discharge: Afebrile. Labs stable. Tolerating meropenem and zyvox. No chest pain or shortness of breath. Discussed with his over the phone plan for skilled discharge. To continue antibiotics through 07/15/2021. Addendum: After discussion with patient and he is insistent about having home treatment of his UTI and never to be placed in SNF. I discussed with patient, and ID physician the only option is fosfomycin 3g x3 doses, 1st to be administered here and 9 additional days of linezolid. Will go home with home health. Patient notified and counseled on the risks and becomes upset with staff insisting he go home. Counseled on risks of rehospitalization, worsening condition and as risks, he verbalizes understanding. Plans for discharge with home health and high risk for readmission. Problem list: Urinary tract infection - Suprapubic catheter associated urinary tract infection with polymicrobial organism. Chronic pain. Sepsis - due to UTI Tobacco use - counseled on cessation Failure to thrive Inability to take care of himself Acute kidney injury - likely vasomotor nephropathy from sepsis Hyponatremia - improved Anemia - likely of chronic disease Hyponatremia, acute kidney injury. Suprapubic Tripp Greater than 30 minutes spent on d/c home with home health Discharge Information Condition at Discharge: Stable Follow Up: Weeks (1) Disposition/Orders: D/C to Home w/ HH Scheduled Finasteride (Finasteride) 5 Mg Tablet, 1 TAB PO DAILY for prostate, (Reported) Entered as Reported by: JANETTE SANTIZO on 06/27/211553 Last Action: Continued on 06/27/211729 by JANETTE SANTIZO Fosfomycin Tromethamine (Monurol) 3 Gm Packet, 3 GM PO DAILY for MDRO UTI for 2 Days, #2 Prescribed by: INNA MARAVILLA MD on 07/05/21 1412 Lactobacillus Rhamnosus Gg (Culturelle) 1 Each Cap.sprink, 1 CAP PO BID for UTI for 14 Days, #28 Prescribed by: INNA MARAVILLA MD on 07/05/21 1047 Linezolid (Zyvox) 600 Mg Tablet, 600 MG PO BID for UTI for 9 Days, #18 Ref 0 Prescribed by: INNA MARAVILLA MD on 07/05/21 1151 Meloxicam (Meloxicam) 15 Mg Tablet, 1 TAB PO DAILY for arthritis pain, (Reported) Entered as Reported by: JANETTE SANTIZO on 06/27/211553 Last Action: Converted on 06/29/211717 by MARE JULIANT [tamsulosin] 0.4 CAPSULE, 0.4 MG PO HS, (Reported) Entered as Reported by: JANETTE SANTIZO on 06/27/211553 Last Action: Converted on 06/27/211729 by JANETTE SANTIZO Scheduled PRN Acetaminophen (Acetaminophen) 325 Mg Tablet, 650 MG PO PRN Q6HRS PRN for MILD PAIN / TEMP > 100.3'F for 30 Days, #120 Prescribed by: INNA MARAVILLA MD on 07/05/21 1047 Discontinued Medications Amoxicillin/Potassium Clav (Augmentin 875-125 Tablet) 1 Each Tablet, 1 TAB PO BI D for uRINARY tRACT iNFECTION for 7 Days, #14 Ref 0 (Reported) Entered as Reported by: Janelle Sheehan on 04/07/21 1338 Justicifation of Admission Dx: Justifications for Admission: Justification of Admission Dx: N/A INNA MARAVILLA MD Jul 05, 2021 14:20
--- NOTE | 2021-07-05 14:57 | NUR ---
patient discharged home with HH. PICC line removed from R upper arm intact. Patient picked up by EMS. Stable upon DC.
[2021-07-05] MEDS ORDERED: FOSFOMYCIN TROMETHAMINE 3 GM PACKET PO ONE (15:00)
== END 2021-07-05 14:58 | disposition home health service (06) | DRG 698 ==
LOC: ER 09:47 → ED HOLD 11:45 → 5 SOUTH 13:13
PROVIDERS: ADMIT Internal Medicine; ATTEND Internal Medicine
PROC: 02HV33Z Insertion of Infusion Device into Superior Vena Cava, Percutaneous Approach (ICD-10-PCS; principal; 2021-06-27)
PROC: B5181ZA Fluoroscopy of Superior Vena Cava using Low Osmolar Contrast, Guidance (ICD-10-PCS; 2021-06-27)
PROC: B548ZZA Ultrasonography of Superior Vena Cava, Guidance (ICD-10-PCS; 2021-06-27)
DX: T83.518A Infection and inflammatory reaction due to other urinary catheter, initial encounter (principal); I50.33 Acute on chronic diastolic (congestive) heart failure; J96.00 Acute respiratory failure, unspecified whether with hypoxia or hypercapnia; N17.0 Acute kidney failure with tubular necrosis; A41.81 Sepsis due to Enterococcus; N39.0 Urinary tract infection, site not specified; E87.1 Hypo-osmolality and hyponatremia; J44.1 Chronic obstructive pulmonary disease with (acute) exacerbation; J84.9 Interstitial pulmonary disease, unspecified; Z16.12 Extended spectrum beta lactamase (ESBL) resistance; D63.8 Anemia in other chronic diseases classified elsewhere; E78.5 Hyperlipidemia, unspecified; E87.6 Hypokalemia; F17.210 Nicotine dependence, cigarettes, uncomplicated; G89.29 Other chronic pain; I11.0 Hypertensive heart disease with heart failure; I25.10 Atherosclerotic heart disease of native coronary artery without angina pectoris; M19.90 Unspecified osteoarthritis, unspecified site; R62.7 Adult failure to thrive; Y84.6 Urinary catheterization as the cause of abnormal reaction of the patient, or of later complication, without mention of misadventure at the time of the procedure; Z82.49 Family history of ischemic heart disease and other diseases of the circulatory system; Z98.61 Coronary angioplasty status; Z68.30 Body mass index [BMI] 30.0-30.9, adult; Z20.822 Contact with and (suspected) exposure to COVID-19; Z71.6 Tobacco abuse counseling
CPT/HCPCS: 36415; 36573; 77001; 80048; 80053; 80150; 81001; 85007; 85025; 86140; 87040; 87071; 87075; 87076; 87077; 87086; 87186; 87426; 96361; 96374; 96375; C1751; C1892; J0278; J0696; J2185; J2270; J2543; J3490; J7030; J7060; U0003; U0005; 97530-GO; 97530-GP; 99285-25; G0378

== ENCOUNTER 2021-08-11 16:06 | Inpatient (IN) | payer MEDICARE, OTHER ==
[~2021-08-11] VITALS: Ht 185.4 cm; Wt 117.7 kg
[~2021-08-11 16:06] MED LIST changes: +ACET325T21 PO; +ERTA1VIA4 IJ; +FINA5TAB4 PO; +FOSF3PAC6 PO; +LACT1CAP19 PO; +LINE600T12 PO; +tamsulosin PO
[2021-08-11] MEDS ORDERED: IV NORMAL SALINE 1000ML BAG 1,000 ML IV ONE (16:15)
--- NOTE | 2021-08-11 16:26 | PHYS DOC ---
Past Medical History Past Medical History: No Pertinent History Additional Past Medical Histor: CHRONIC PAIN,UROSEPSIS Past Surgical History: No Surgical History Additional Past Surgical Histo: ABD SX,SUPRAPUBIC CATHETER PLACEMENT Smoking Status: Current Every Day Smoker Alcohol Use: None Drug Use: None General Adult EDM: Chief Complaint: LOWER EXT PAIN HPI: HPI: Patient is a 75-year-old male who presents to the emergency department for bilateral leg pain that started 2 months ago. Patient reports that most of his pain is in his knees and down his legs. He rates his pain 9 out of 10. He states that he takes the pain medication for but is unsure what it is called. Patient called EMS today for a lift assist but then decided he did not want to be seen for his chronic leg pain. Patient denies any injuries or falls, chest pain, shortness of breath, fevers. Patient states that he can normally get up and move around but today his leg pain was too severe that he could not. Review of Systems: Review of Systems: Constitutional: See HPI Respiratory: See HPI Cardiovascular: See HPI : Denies dysuria. [] Musculoskeletal: See HPI Neurologic: Denies headache, focal weakness or sensory changes. [] Heart Score: C/O Chest Pain: No Risk Factors: Risk Factors: DM, Current or recent (<one month) smoker, HTN, HLP, family history of CAD, obesity. Risk Scores: Score 0 - 3: 2.5% MACE over next 6 weeks - Discharge Home Score 4 - 6: 20.3% MACE over next 6 weeks - Admit for Clinical Observation Score 7 - 10: 72.7% MACE over next 6 weeks - Early Invasive Strategies Current Medications: Current Medications Medications (Trade) Dose Ordered Sig/Eli Start Time Stop Time Status Last Admin Dose Admin Sodium Chloride 1,000 ml @ 1,000 mls/hr 1X ONCE 08/11/21 16:15 08/11/21 17:14 Allergies: Allergies: Allergies Coded Allergies Type Severity Reaction Last Updated Verified I S O L A T I O N *CONTACT* Allergy Unknown 06/30/21 Yes No Known Medication Allergies Allergy Unknown 06/30/21 Yes Physical Exam: PE: Constitutional: Well developed, no acute distress, patient has poor hygiene HENT: Normocephalic, atraumatic, bilateral external ears normal, oropharynx moist, no oral exudates, nose normal. [] Eyes: PERRL, EOMI, conjunctiva normal, no discharge. [] Neck: Normal range of motion, no stridor Cardiovascular:Heart rate regular rhythm, no murmur [] Lungs & Thorax: Bilateral breath sounds clear to auscultation [] Abdomen: Bowel sounds normal, soft, no tenderness, patient is noted to have a suprapubic catheter in place, patient has shiny erythematous skin surrounding suprapubic site under pannus consistent with candidiasis, suprapubic catheter has sediment in tubing tenderness with palpation around suprapubic region of abdomen. [] Back: Normal range of motion Extremities: No tenderness, no cyanosis, no clubbing, ROM intact, no edema. [] Neurologic: Alert and oriented X 3, normal motor function, normal sensory function, no focal deficits noted. [] Psychologic: Affect normal, judgement normal, mood normal. [] Current Patient Data: Labs: Laboratory Tests Test 08/11/21 17:10 08/11/21 18:30 White Blood Count 16.4 x10^3/uL Red Blood Count 4.06 x10^6/uL Hemoglobin 12.0 g/dL Hematocrit 34.8 % Mean Corpuscular Volume 86 fL Mean Corpuscular Hemoglobin 30 pg Mean Corpuscular Hemoglobin Concent 35 g/dL Red Cell Distribution Width 16.4 % Platelet Count 152 x10^3/uL Neutrophils (%) (Auto) 86 % Lymphocytes (%) (Auto) 5 % Monocytes (%) (Auto) 9 % Eosinophils (%) (Auto) 0 % Basophils (%) (Auto) 0 % Neutrophils # (Auto) 14.0 x10^3/uL Lymphocytes # (Auto) 0.8 x10^3/uL Monocytes # (Auto) 1.5 x10^3/uL Eosinophils # (Auto) 0.0 x10^3/uL Basophils # (Auto) 0.1 x10^3/uL Platelet Estimate Pending Sodium Level 137 mmol/L Potassium Level 3.5 mmol/L Chloride Level 98 mmol/L Carbon Dioxide Level 23 mmol/L Anion Gap 16 Blood Urea Nitrogen 27 mg/dL Creatinine 1.5 mg/dL Estimated GFR (Cockcroft-Gault) 45.6 BUN/Creatinine Ratio 18 Glucose Level 122 mg/dL Calcium Level 9.2 mg/dL Total Bilirubin 1.4 mg/dL Aspartate Amino Transf (AST/SGOT) 23 U/L Alanine Aminotransferase (ALT/SGPT) 17 U/L Alkaline Phosphatase 39 U/L Troponin I High Sensitivity 13 ng/L Total Protein 7.7 g/dL Albumin 3.4 g/dL Albumin/Globulin Ratio 0.8 Urine Collection Type Unknown Urine Color Ashley Urine Clarity Turbid Urine pH 5.5 Urine Specific [place] 1.025 Urine Protein >=300 mg/dL Urine Glucose (UA) Negative mg/dL Urine Ketones (Stick) Trace mg/dL Urine Blood Large Urine Nitrite Positive Urine Bilirubin Small Urine Urobilinogen Dipstick 1.0 mg/dL Urine Leukocyte Esterase Large Urine RBC Tntc /HPF Urine WBC Tntc /HPF Urine Bacteria Moderate /HPF Urine Hyaline Casts Moderate /HPF Urine Mucus Marked /LPF Current Medications Medications (Trade) Dose Ordered Sig/Eli Route PRN Reason Start Time Stop Time Status Last Admin Dose Admin Sodium Chloride 1,000 ml @ 1,000 mls/hr 1X ONCE IV 08/11/21 16:15 08/11/21 17:14 DC EKG: EKG: EKG performed at 1910 shows sinus rhythm with a heart rate of 90, QTc of 407, no STEMI read by Dr. Encarnacion at 1913 [] Radiology/Procedures: Radiology/Procedures: []PROCEDURE: PORTABLE CHEST 1V Exam: Chest one view INDICATION: Weakness TECHNIQUE: Frontal view of the chest Comparisons: 04/05/2021 FINDINGS: The cardiomediastinal silhouette and pulmonary vessels are within normal limits. The lung and pleural spaces are clear. IMPRESSION: No acute cardiopulmonary process. Electronically signed by: Kandace Cook MD (08/11/2021 4:38 PM) [facility] DICTATED and SIGNED BY: KANDACE COOK MD DATE: 08/11/21 [id number] 0 Course & Med Decision Making: Course & Med Decision Making Pertinent Labs and Imaging studies reviewed. (See chart for details) [] Patient presents to the emergency department for chronic bilateral lower extremity pain starts his knees and goes down his legs. Patient reports that he has had this pain for 2 months. Patient denies any injuries. Patient has no complaints other than the chronic leg pain. Upon further investigation, patient has a catheter in place he states that it was placed at [facility] because he could not urinate. Patient is unsure of when he had the catheter placed. Overall patient is a very poor historian. Work-up in the ER consisted of blood work, urinalysis, EKG, chest x-ray. Patient was noted to have candidiasis surrounding suprapubic catheter and sediment in tubing, patient states he had the catheter placed at [facility] but has not had it changed recently, this was removed and a new catheter was placed, urinalysis obtained from new catheter. Patient has very poor hygiene, is brief is very saturated and he has a foul odor. Patient was noted to have cockroaches crawling on him. Patient reports that his takes care of him when he receives home health 2 days out of the month. Patient reports that his has mobility issues. Patient was noted to have leukocytosis with a white blood cell count of 16.4. He was also noted to have an elevated BUN and creatinine. Urinalysis shows urinary tract infection. Patient does meet sepsis criteria as he is tachycardic and has an elevated white blood cell count and an infection in his urine. Sepsis protocol and antibiotics ordered. I discussed these findings with Dr. Arenas And he agreed to admit the patient under his services for urosepsis. ER bridge orders placed. 1929 Sony Disclaimer: Sony Disclaimer: This electronic medical record was generated, in whole or in part, using a voice recognition dictation system. Departure Departure Impression: Primary Impression: UTI (urinary tract infection) Qualified Codes: N30.01 - Acute cystitis with hematuria Additional Impression: Sepsis Qualified Codes: A41.9 - Sepsis, unspecified organism Disposition: ADMITTED INPATIENT Admitting Physician: TOMER Condition: STABLE Referrals: UNKNOWN PCP NAME (PCP) THUAN STEPHEN APRN Aug 11, 2021 16:26
--- NOTE | 2021-08-11 16:41 | RAD ---
Exam: Chest one view INDICATION: Weakness TECHNIQUE: Frontal view of the chest Comparisons: 04/05/2021 FINDINGS: The cardiomediastinal silhouette and pulmonary vessels are within normal limits. The lung and pleural spaces are clear. IMPRESSION: No acute cardiopulmonary process. Electronically signed by: Kandace Olson MD (08/11/2021 4:38 PM) [facility]
[2021-08-11 17:25] LABS: BASO # 0.1 x10^3/uL (0.0-0.2); BASO % 0 % (0-3); EOS % 0 % (0-3); HEMATOCRIT 34.8 % (39.0-53.0); LYMPH # 0.8 x10^3/uL (1.0-4.8); LYMPH % 5 % (24-48); MEAN CORPUSCULAR HEMOGLOBIN 30 pg (25-35); MEAN CORPUSCULAR HGB CONC 35 g/dL (31-37); MEAN CORPUSCULAR VOLUME 86 fL (79-100); MONO # 1.5 x10^3/uL (0.0-1.1); MONO % 9 % (0-9); NEUT % 86 % (31-73); PLATELET COUNT 152 x10^3/uL (140-400); RED BLOOD COUNT 4.06 x10^6/uL (4.30-5.70); RED CELL DISTRIBUTION WIDTH 16.4 % (11.5-14.5); WHITE BLOOD COUNT 16.4 x10^3/uL (4.0-11.0)
[2021-08-11 17:37] LABS: CALCIUM 9.2 mg/dL (8.5-10.1); CREATININE 1.5 mg/dL (0.7-1.3); GFR 45.6; POTASSIUM 3.5 mmol/L (3.5-5.1)
[2021-08-11 17:42] LABS: ALBUMIN 3.4 g/dL (3.4-5.0); ALBUMIN/GLOBULIN RATIO 0.8 (1.0-1.7); TOTAL BILIRUBIN 1.4 mg/dL (0.2-1.0); TOTAL PROTEIN 7.7 g/dL (6.4-8.2)
[2021-08-11 18:59] LABS: BILIRUBIN,URINE SMALL (NEG); CLARITY,URINE TURBID; COLOR,URINE AMBER; NITRITE,URINE POSITIVE (NEG); PH,URINE 5.5 (<5.0-8.0); PROTEIN,URINE >=300 mg/dL (NEG-TRACE)
[2021-08-11 19:06] LABS: BARBITURATES NEG (NEG); BENZODIAZEPINES NEG (NEG); CANNABINOIDS NEG (NEG); COCAINE NEG (NEG); METHADONE NEG (NEG); OPIATES NEG (NEG); PHENCYCLIDINE NEG (NEG)
[2021-08-11 19:14] LABS: BACTERIA,URINE MODERATE /HPF (0-FEW); HYALINE CASTS, URINE MODERATE /HPF; RBC,URINE TNTC /HPF (0-2); WBC,URINE TNTC /HPF (0-4)
[2021-08-11 19:17] LABS: AMPHETAMINE/METHAMPHETAMINE NEG (NEG)
[2021-08-11] MEDS ORDERED: IV NORMAL SALINE 500ML BAG 500 ML IV PRN (19:30)
[2021-08-11] MEDS ORDERED: cefTRIAXone IV Push 1 GM VIAL. IVP ONE (19:30)
[2021-08-11] MEDS: IV NORMAL SALINE 1000ML BAG 1,000 ML IV SCH ×4 (19:56→23:33)
[2021-08-11] MEDS ORDERED: PIPERACILLIN/TAZOBACTAM 3.375 GM in IV NORMAL SALINE 50ML 50 ML IV ONE (20:00)
[2021-08-11 20:31] LABS: % BANDS 5 % (0-9); % LYMPHS 11 % (24-48); % MONOS 3 % (0-10); % SEGS 81 % (35-66)
[2021-08-11 20:32] LABS: PLT ESTIMATE ADEQUATE (ADEQUATE)
--- NOTE | 2021-08-12 03:52 | EKG ---
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
[2021-08-12] MEDS ORDERED: HYDROcodone/APAP 5/325MG 1 TAB TABLET PO PRN (04:30)
[2021-08-12] MEDS ORDERED: PIP/TAZO PER PHARMACY MC PRN (09:30)
[2021-08-12] MEDS ORDERED: oxyCODONE/APAP 5/325 1 TAB TABLET PO PRN (09:30)
[2021-08-12] MEDS ORDERED: ELECTROLYTE (NON-ICU) PROTOCOL. MC PRN (09:30)
[2021-08-12] MEDS ORDERED: ONDANSETRON PF 4 MG/2 ML VIAL. IVP PRN (09:30)
[2021-08-12] MEDS ORDERED: CALCIUM CARBONATE 500 MG TAB.CHEW PO PRN (09:30)
[2021-08-12] MEDS ORDERED: ACETAMINOPHEN 325 MG TABLET. PO PRN (09:30)
[2021-08-12 10:03] LABS: BASO % 0 % (0-3); EOS # 0.1 x10^3/uL (0.0-0.7); EOS % 1 % (0-3); HEMATOCRIT 29.6 % (39.0-53.0); HEMOGLOBIN 10.1 g/dL (13.0-17.5); LYMPH # 1.2 x10^3/uL (1.0-4.8); LYMPH % 12 % (24-48); MEAN CORPUSCULAR HEMOGLOBIN 30 pg (25-35); MEAN CORPUSCULAR HGB CONC 34 g/dL (31-37); MEAN CORPUSCULAR VOLUME 87 fL (79-100); MONO # 1.1 x10^3/uL (0.0-1.1); MONO % 11 % (0-9); NEUT # 7.5 x10^3/uL (1.8-7.7); NEUT % 76 % (31-73); PLATELET COUNT 129 x10^3/uL (140-400); RED BLOOD COUNT 3.41 x10^6/uL (4.30-5.70); RED CELL DISTRIBUTION WIDTH 16.1 % (11.5-14.5); WHITE BLOOD COUNT 9.9 x10^3/uL (4.0-11.0)
[2021-08-12 10:26] LABS: ALBUMIN 2.5 g/dL (3.4-5.0); ALBUMIN/GLOBULIN RATIO 0.7 (1.0-1.7); CALCIUM 8.3 mg/dL (8.5-10.1); CREATININE 1.1 mg/dL (0.7-1.3); GFR 65.3; POTASSIUM 3.3 mmol/L (3.5-5.1); TOTAL BILIRUBIN 0.6 mg/dL (0.2-1.0); TOTAL PROTEIN 6.2 g/dL (6.4-8.2)
[2021-08-12] MEDS: PIPERACILLIN/TAZOBACTAM 3.375 GM in IV NORMAL SALINE 50ML 50 ML IV SCH ×2 (10:31→17:12)
[2021-08-12] MEDS: oxyCODONE/APAP 5/325 1 TAB TABLET PO PRN ×2 (10:43→21:31)
[2021-08-12] MEDS: HEPARIN for SUB-Q USE 5,000 UNIT/ML VIAL. SQ SCH ×2 (17:17→21:39)
--- NOTE | 2021-08-12 18:03 | PDOC1 ---
History and Physical Date of Service: DOS: DATE: 08/12/21 TIME: 17:59 Chief Complaint: Chief Complain: Leg pain, dysuria History of Present Illness: HPI: Patient is a 75-year-old male who presents to the emergency department for bilateral leg pain that started 2 months ago. Patient reports that most of his pain is in his knees and down his legs. He rates his pain 9 out of 10. He states that he takes the pain medication for but is unsure what it is called. Patient called EMS today for a lift assist but then decided he did not want to be seen for his chronic leg pain. Patient denies any injuries or falls, chest pain, shortness of breath, fevers. Patient states that he can normally get up and move around but today his leg pain was too severe that he could not. Patient is frequently admitted here for similar complaints. Definitely has failure to thrive at home. We will treat his UTI possibly pyelonephritis. Consult ID due to recurrence and resistance on previous microbial sensitivities. Past Medical/Surgical History: PMH/PSH: Recurrent UTI Allergies: Allergies: Coded Allergies: I S O L A T I O N *CONTACT* (Verified Allergy, Unknown, 06/30/21) MDRO-Serratia No Known Medication Allergies (Verified Allergy, Unknown, 06/30/21) Family History: Family History: Hypertension Social History: Social History: Denies alcohol tobacco or drug use Current Medications: Current Medications Current Medications Sodium Chloride 1,000 ml @ 1,000 mls/hr 1X ONCE IV Last administered on 08/11/21at 19:48; Start 08/11/21 at 16:15; Stop 08/11/21 at 17:14; Status DC Sodium Chloride 1,000 ml @ 2,340 mls/hr Q26M IV Last administered on 08/11/21at 22:05; Start 08/11/21 at 19:30; Stop 08/11/21 at 20:30; Status DC Sodium Chloride 500 ml @ 1,000 mls/hr PRN Q30MIN PRN IV SEE COMMENTS; Start 08/11/21 at 19:30 Ceftriaxone Sodium (Rocephin) 1 gm 1X ONCE IVP ; Start 08/11/21 at 19:30; Stop 08/11/21 at 19:36; Status DC Piperacillin Sod/ Tazobactam Sod 3.375 gm/Sodium Chloride 50 ml @ 100 mls/hr 1X ONCE IV Last administered on 08/11/21at 20:30; Start 08/11/21 at 20:00; Stop 08/11/21 at 20:29; Status DC Acetaminophen/ Hydrocodone Bitart (Lortab 5/325) 1 tab PRN Q6HRS PRN PO MODERATE PAIN 4-6 Last administered on 08/12/21at 05:08; Start 08/12/21 at 04:30 Piperacillin Sod/ Tazobactam Sod (Zosyn Per Pharmacy) 1 each PRN DAILY PRN MC SEE COMMENTS; Start 08/12/21 at 09:30 Ondansetron HCl (Zofran) 4 mg PRN Q6HRS PRN IVP NAUSEA/VOMITING; Start 08/12/21 at 09:30 Calcium Carbonate/ Glycine (Tums) 500 mg PRN Q3HRS PRN PO UPSET STOMACH; Start 08/12/21 at 09:30 Info (Non-Icu Electrolyte Protocol) 1 ea PRN DAILY PRN MC SEE COMMENTS; Start 08/12/21 at 09:30 Oxycodone/ Acetaminophen (Percocet 5/325) 1 tab PRN Q4HRS PRN PO MILD PAIN, 1ST CHOICE; Start 08/12/21 at 09:30 Oxycodone/ Acetaminophen (Percocet 5/325) 2 tab PRN Q4HRS PRN PO MODERATE PAIN, SEVERE PAIN Last administered on 08/12/21at 10:43; Start 08/12/21 at 09:30 Acetaminophen (Tylenol) 650 mg PRN Q6HRS PRN PO Headaches, Temp > 101.5F; St art 08/12/21 at 09:30 Senna/Docusate Sodium (Senna Plus) 1 tab BID PO ; Start 08/12/21 at 21:00 Heparin Sodium (Porcine) (Heparin Sodium) 5,000 unit Q8HRS SQ Last administered on 08/12/21at 17:17; Start 08/12/21 at 14:00 Finasteride (Proscar) 5 mg DAILY PO ; Start 08/13/21 at 09:00 Tamsulosin HCl (Flomax) 0.4 mg QHS PO ; Start 08/12/21 at 21:00 Piperacillin Sod/ Tazobactam Sod 3.375 gm/Sodium Chloride 50 ml @ 100 mls/hr Q6HRS IV Last administered on 08/12/21at 17:12; Start 08/12/21 at 10:00 Active Scripts Active Culturelle (Lactobacillus Rhamnosus Gg) 1 Each Cap.sprink 1 Cap PO BID 14 Days Acetaminophen 325 Mg Tablet 650 Mg PO PRN Q6HRS PRN 30 Days Reported Finasteride 5 Mg Tablet 1 Tab PO DAILY [tamsulosin] 0.4 Capsule 0.4 Mg PO HS Meloxicam 15 Mg Tablet 1 Tab PO DAILY ROS: Review of Systems Review of System Unless noted in HPI 14 point review of systems was negative Physical Exam: Vital Signs: Vital Signs Date Time Temp Pulse Resp B/P (MAP) Pulse Ox O2 Delivery O2 Flow Rate FiO2 08/12/21 16:38 Room Air 08/12/21 14:51 80 18 116/58 (77) 97 08/12/21 12:13 97.5 97.5 Physcial Exam: GEN: No apparent distress. Alert and oriented HEENT: Normal cephalic, atraumatic, external auditory canals are patent EYES: Extraocular muscles are intact, pupil are equally round and reactive to light and accommodation MUSCULOSKELETAL: Well developed , well nourished, good range of motion ENDOCRINE: No thyromegaly was palpated LYMPHATICS: No cervical chain or axillary nodes were noted HEMATOPOIETIC: No bruising NECK: Supple, no JVD, no thyromegaly was noted LUNGS: Clear to auscultation in all lung washburn without rhonchi or wheezing HEART: RRR, S!, S2 present. Peripheral pulses intact, no obvious murmurs noted ABDOMEN: Soft, nontender. Positive bowel sounds, no organomegaly, normal bowel sounds EXTREMITIES: Without clubbing, cyanosis, or edema. Pedal pulses intact. Negative Homans sign NEUROLOGIC: Normal speech and tone. A&O x 3, moves all extremities, no o bvious focal deficits PSYCHIATRIC: Normal affect, normal mood. Stable SKIN: No ulcerations or rashes, good skin turgor, no jaundice VASCULAR: Good capillary refill, neurovascular bundle appears to be intact Labs: Labs: Laboratory Tests Test 08/11/21 17:10 08/11/21 18:30 08/11/21 20:35 08/12/21 09:40 White Blood Count 16.4 x10^3/uL (4.0-11.0) 9.9 x10^3/uL (4.0-11.0) Red Blood Count 4.06 x10^6/uL (4.30-5.70) 3.41 x10^6/uL (4.30-5.70) Hemoglobin 12.0 g/dL (13.0-17.5) 10.1 g/dL (13.0-17.5) Hematocrit 34.8 % (39.0-53.0) 29.6 % (39.0-53.0) Mean Corpuscular Volume 86 fL (79-100) 87 fL (79-100) Mean Corpuscular Hemoglobin 30 pg (25-35) 30 pg (25-35) Mean Corpuscular Hemoglobin Concent 35 g/dL (31-37) 34 g/dL (31-37) Red Cell Distribution Width 16.4 % (11.5-14.5) 16.1 % (11.5-14.5) Platelet Count 152 x10^3/uL (140-400) 129 x10^3/uL (140-400) Neutrophils (%) (Auto) 86 % (31-73) 76 % (31-73) Lymphocytes (%) (Auto) 5 % (24-48) 12 % (24-48) Monocytes (%) (Auto) 9 % (0-9) 11 % (0-9) Eosinophils (%) (Auto) 0 % (0-3) 1 % (0-3) Basophils (%) (Auto) 0 % (0-3) 0 % (0-3) Neutrophils # (Auto) 14.0 x10^3/uL (1.8-7.7) 7.5 x10^3/uL (1.8-7.7) Lymphocytes # (Auto) 0.8 x10^3/uL (1.0-4.8) 1.2 x10^3/uL (1.0-4.8) Monocytes # (Auto) 1.5 x10^3/uL (0.0-1.1) 1.1 x10^3/uL (0.0-1.1) Eosinophils # (Auto) 0.0 x10^3/uL (0.0-0.7) 0.1 x10^3/uL (0.0-0.7) Basophils # (Auto) 0.1 x10^3/uL (0.0-0.2) 0.0 x10^3/uL (0.0-0.2) Segmented Neutrophils % 81 % (35-66) Band Neutrophils % 5 % (0-9) Lymphocytes % 11 % (24-48) Monocytes % 3 % (0-10) Platelet Estimate Adequate (ADEQUATE) Sodium Level 137 mmol/L (136-145) 139 mmol/L (136-145) Potassium Level 3.5 mmol/L (3.5-5.1) 3.3 mmol/L (3.5-5.1) Chloride Level 98 mmol/L (98-107) 104 mmol/L (98-107) Carbon Dioxide Level 23 mmol/L (21-32) 25 mmol/L (21-32) Anion Gap 16 (6-14) 10 (6-14) Blood Urea Nitrogen 27 mg/dL (8-26) 21 mg/dL (8-26) Creatinine 1.5 mg/dL (0.7-1.3) 1.1 mg/dL (0.7-1.3) Estimated GFR (Cockcroft-Gault) 45.6 65.3 BUN/Creatinine Ratio 18 (6-20) 19 (6-20) Glucose Level 122 mg/dL (70-99) 124 mg/dL (70-99) Lactic Acid Level 2.5 mmol/L (0.4-2.0) 1.6 mmol/L (0.4-2.0) Calcium Level 9.2 mg/dL (8.5-10.1) 8.3 mg/dL (8.5-10.1) Total Bilirubin 1.4 mg/dL (0.2-1.0) 0.6 mg/dL (0.2-1.0) Aspartate Amino Transf (AST/SGOT) 23 U/L (15-37) 19 U/L (15-37) Alanine Aminotransferase (ALT/SGPT) 17 U/L (16-63) 10 U/L (16-63) Alkaline Phosphatase 39 U/L (46-116) 32 U/L (46-116) Troponin I High Sensitivity 13 ng/L (4-75) Total Protein 7.7 g/dL (6.4-8.2) 6.2 g/dL (6.4-8.2) Albumin 3.4 g/dL (3.4-5.0) 2.5 g/dL (3.4-5.0) Albumin/Globulin Ratio 0.8 (1.0-1.7) 0.7 (1.0-1.7) Urine Collection Type Unknown Urine Color Ashley Urine Clarity Turbid Urine pH 5.5 (<5.0-8.0) Urine Specific [place] 1.025 (1.000-1.030) Urine Protein >=300 mg/dL (NEG-TRACE) Urine Glucose (UA) Negative mg/dL (NEG) Urine Ketones (Stick) Trace mg/dL (NEG) Urine Blood Large (NEG) Urine Nitrite Positive (NEG) Urine Bilirubin Small (NEG) Urine Urobilinogen Dipstick 1.0 mg/dL (0.2 mg/dL) Urine Leukocyte Esterase Large (NEG) Urine RBC Tntc /HPF (0-2) Urine WBC Tntc /HPF (0-4) Urine Bacteria Moderate /HPF (0-FEW) Urine Hyaline Casts Moderate /HPF Urine Mucus Marked /LPF Urine Opiates Screen Neg (NEG) Urine Methadone Screen Neg (NEG) Urine Barbiturates Neg (NEG) Urine Phencyclidine Screen Neg (NEG) Urine Amphetamine/Methamphetamine Neg (NEG) Urine Benzodiazepines Screen Neg (NEG) Urine Cocaine Screen Neg (NEG) Urine Cannabinoids Screen Neg (NEG) Urine Ethyl Alcohol Neg (NEG) SARS-CoV-2 RNA (FAVIOLA) Negative (Negative) SARS-CoV-2 Antigen (Rapid) Negative (NEGATIVE) Laboratory Tests Test 08/11/21 18:30 08/11/21 20:35 08/12/21 09:40 Urine Collection Type Unknown Urine Color Ashley Urine Clarity Turbid Urine pH 5.5 (<5.0-8.0) Urine Specific [place] 1.025 (1.000-1.030) Urine Protein >=300 mg/dL (NEG-TRACE) Urine Glucose (UA) Negative mg/dL (NEG) Urine Ketones (Stick) Trace mg/dL (NEG) Urine Blood Large (NEG) Urine Nitrite Positive (NEG) Urine Bilirubin Small (NEG) Urine Urobilinogen Dipstick 1.0 mg/dL (0.2 mg/dL) Urine Leukocyte Esterase Large (NEG) Urine RBC Tntc /HPF (0-2) Urine WBC Tntc /HPF (0-4) Urine Bacteria Moderate /HPF (0-FEW) Urine Hyaline Casts Moderate /HPF Urine Mucus Marked /LPF Urine Opiates Screen Neg (NEG) Urine Methadone Screen Neg (NEG) Urine Barbiturates Neg (NEG) Urine Phencyclidine Screen Neg (NEG) Urine Amphetamine/Methamphetamine Neg (NEG) Urine Benzodiazepines Screen Neg (NEG) Urine Cocaine Screen Neg (NEG) Urine Cannabinoids Screen Neg (NEG) Urine Ethyl Alcohol Neg (NEG) SARS-CoV-2 RNA (FAVIOLA) Negative (Negative) SARS-CoV-2 Antigen (Rapid) Negative (NEGATIVE) White Blood Count 9.9 x10^3/uL (4.0-11.0) Red Blood Count 3.41 x10^6/uL (4.30-5.70) Hemoglobin 10.1 g/dL (13.0-17.5) Hematocrit 29.6 % (39.0-53.0) Mean Corpuscular Volume 87 fL (79-100) Mean Corpuscular Hemoglobin 30 pg (25-35) Mean Corpuscular Hemoglobin Concent 34 g/dL (31-37) Red Cell Distribution Width 16.1 % (11.5-14.5) Platelet Count 129 x10^3/uL (140-400) Neutrophils (%) (Auto) 76 % (31-73) Lymphocytes (%) (Auto) 12 % (24-48) Monocytes (%) (Auto) 11 % (0-9) Eosinophils (%) (Auto) 1 % (0-3) Basophils (%) (Auto) 0 % (0-3) Neutrophils # (Auto) 7.5 x10^3/uL (1.8-7.7) Lymphocytes # (Auto) 1.2 x10^3/uL (1.0-4.8) Monocytes # (Auto) 1.1 x10^3/uL (0.0-1.1) Eosinophils # (Auto) 0.1 x10^3/uL (0.0-0.7) Basophils # (Auto) 0.0 x10^3/uL (0.0-0.2) Sodium Level 139 mmol/L (136-145) Potassium Level 3.3 mmol/L (3.5-5.1) Chloride Level 104 mmol/L (98-107) Carbon Dioxide Level 25 mmol/L (21-32) Anion Gap 10 (6-14) Blood Urea Nitrogen 21 mg/dL (8-26) Creatinine 1.1 mg/dL (0.7-1.3) Estimated GFR (Cockcroft-Gault) 65.3 BUN/Creatinine Ratio 19 (6-20) Glucose Level 124 mg/dL (70-99) Lactic Acid Level 1.6 mmol/L (0.4-2.0) Calcium Level 8.3 mg/dL (8.5-10.1) Total Bilirubin 0.6 mg/dL (0.2-1.0) Aspartate Amino Transf (AST/SGOT) 19 U/L (15-37) Alanine Aminotransferase (ALT/SGPT) 10 U/L (16-63) Alkaline Phosphatase 32 U/L (46-116) Total Protein 6.2 g/dL (6.4-8.2) Albumin 2.5 g/dL (3.4-5.0) Albumin/Globulin Ratio 0.7 (1.0-1.7) Assessment/Plan Assessment/Plan Sepsis secondary to urinary tract infection, bilateral lower extremity pain, recurrent UTIs -Admit to hospitalist -Urine notably infected on admission. Previous sensitivities reviewed all previous organisms seem sensitive to Zosyn. Start Zosyn. Consult to infectious disease. -PT OT -Patient has been evaluated extensively for this lower extremity pain other than therapy did not really see the need for any other intervention Home meds resumed as indicated -DVT prophylaxis. -21 minutes advance care planning. Patient presents to the emergency department for chronic bilateral lower extremity pain starts his knees and goes down his legs. Patient reports that he has had this pain for 2 months. Patient denies any injuries. Patient has no complaints other than the chronic leg pain. Upon further investigation, patient has a catheter in place he states that it was placed at [facility] because he could not urinate. Patient is unsure of when he had the catheter placed. Overall patient is a very poor historian. Work-up in the ER consisted of blood work, urinalysis, EKG, chest x-ray. Patient was noted to have candidiasis surrounding suprapubic catheter and sediment in tubing, patient states he had the catheter placed at [facility] but has not had it changed recently, this was removed and a new catheter was placed, urinalysis obtained from new catheter. Patient has very poor hygiene, is brief is very saturated and he has a foul odor. Patient was noted to have cockroaches crawling on him. Patient reports that his takes care of him when he receives home health 2 days out of the month. Patient reports that his has mobility issues. Patient was noted to have leukocytosis with a white blood cell count of 16.4. He was also noted to have an elevated BUN and creatinine. Urinalysis shows urinary tract infection. Patient does meet sepsis criteria as he is tachycardic and has an elevated white blood cell count and an infection in his urine. Sepsis protocol and antibiotics ordered. I discussed these findings with Dr. Arenas And he agreed to admit the patient under his services for urosepsis. ER bridge orders placed. 1929 Justifications for Admission Other Justification INNA CARTER MD Aug 12, 2021 18:03
[2021-08-12 19:00] VITALS: BP 151/80
[2021-08-12] MEDS: TAMSULOSIN 0.4 MG CAP.ER.24H. PO SCH (21:00)
[2021-08-12] MEDS: SENNOSIDES/DOCUSATE 8.6/50MG TABLET. PO SCH (21:32)
[2021-08-12 23:07] VITALS: BP 126/67
[2021-08-13 02:57] VITALS: BP 140/76
[2021-08-13] MEDS: PIPERACILLIN/TAZOBACTAM 3.375 GM in IV NORMAL SALINE 50ML 50 ML IV SCH ×5 (05:10→23:09)
[2021-08-13] MEDS: oxyCODONE/APAP 5/325 1 TAB TABLET PO PRN ×3 (05:11→21:04)
[2021-08-13] MEDS: HEPARIN for SUB-Q USE 5,000 UNIT/ML VIAL. SQ SCH ×3 (05:16→21:14)
[2021-08-13 07:00] VITALS: BP 151/73
[2021-08-13] MEDS: FINASTERIDE 5 MG TABLET. PO SCH (09:09)
[2021-08-13] MEDS: SENNOSIDES/DOCUSATE 8.6/50MG TABLET. PO SCH ×2 (09:09→21:03)
--- NOTE | 2021-08-13 10:39 | CONS ---
DATE OF CONSULTATION: 08/13/2021 REFERRING PHYSICIAN: Dr. Barrientos. REASON FOR CONSULTATION: Antibiotic management with history of MDRO UTI. HISTORY OF PRESENT ILLNESS: A 75-year-old male with history of neurogenic bladder, status post SPC, presented to the ER after having weakness and hit his head against the chair yesterday. The patient called EMS today for a lift assist, but then decided did not want to be seen for chronic leg pain. He denies any injuries. Denies any headache or neck pain. Denies any nausea, vomiting, diarrhea, fever, chills, shortness of breath, cough. PAST MEDICAL HISTORY: Neurogenic bladder, status post suprapubic catheter placement; history of MDRO; current smoker; generalized weakness; DJD; chronic pain. ALLERGIES: None. FAMILY HISTORY: As per HPI. SOCIAL HISTORY: Positive for smoking. Retired. No drugs. Lives at home. CURRENT MEDICATIONS: Zosyn. REVIEW OF SYSTEMS: Negative except for above in HPI. PHYSICAL EXAMINATION: VITAL SIGNS: Stable. GENERAL: Alert, oriented x 3 male, lying in bed comfortably, in no acute distress. HEENT: Normocephalic, atraumatic. Anicteric. NECK: Supple, no JVD. LUNGS: Clear. HEART: S1, S2. ABDOMEN: Soft, nontender. Suprapubic catheter present, intact, changed yesterday per the patient. EXTREMITIES: No edema, no cyanosis. DERMATOLOGIC: Warm, dry, no generalized rash. NEUROLOGIC: Alert and oriented x 3, grossly nonfocal. Generalized weakness. PSYCHIATRIC: Calm and cooperative. MUSCULOSKELETAL: No changes suggestive of DJD. LABORATORY DATA: WBC was 16.4, now 9.9; hemoglobin 12.0; platelets 152. Sodium 139; potassium 3.3; chloride 104; bicarb 25; BUN 21; creatinine 1.1, was 1.5. UA shows large leukocyte esterase, large blood. SARS-COVID negative. UDS negative. IMAGING: Chest x-ray, no cardiopulmonary process. IMPRESSION: 1. Generalized weakness. 2. Urinary tract infection. 3. Leukocytosis. 4. Neurogenic bladder, status post suprapubic catheter exchange yesterday per patient. 5. Acute kidney injury, likely dehydration. 6. Chronic pain. RECOMMENDATIONS: 1. Continue Zosyn. 2. Follow up urine culture. 3. Monitor labs and cultures. 4. Continue supportive care. 5. SPC maintenance per protocol. Thank you for allowing me to participate in this patient's care. If you have any questions, do not hesitate to contact me. VALENTINO/PAWAN/INA DR: Melissa TID: [id number]
--- NOTE | 2021-08-13 10:58 | PDOC ---
[facility] PROGRESS NOTE Date of Service DOS: DATE: 08/13/21 TIME: 10:52 Chief Complaint Chief Complaint UTI Urosepsis Leukocytosis Fever Neurogenic bladder s/p suprapubic catheter placement JAMES Chronic leg pain Generalized weakness History of Present Illness History of Present Illness 08/13/2021 Patient seen and examined Chart reviewed Discussed with RN Patient is feeling better today States he lives in a "highrise" with his . Suprapubic catheter to BSD. Good output. Patient complains of 6/10 leg pain. Last received Percocet at 0500. Zosyn hanging. Vitals/I&O Vitals/I&O: Vital Signs Date Time Temp Pulse Resp B/P (MAP) Pulse Ox O2 Delivery O2 Flow Rate FiO2 08/13/21 10:38 99 Room Air 08/13/21 07:00 97.6 67 18 151/73 (99) 97.6 I & O 08/12/21 08/12/21 08/13/21 15:00 23:00 07:00 Intake Total 50 ml 600 ml Output Total 600 ml 700 ml Balance 50 ml 0 ml -700 ml Physical Exam General: Alert, Oriented X3, Cooperative, No acute distress Heart: Regular rate Lungs: Clear Abdomen: Normal bowel sounds Extremities: No clubbing Skin: No rashes Assessment and Plan Assessmemt and Plan UTI Urosepsis Leukocytosis Fever Neurogenic bladder s/p suprapubic catheter placement JAMES Chronic leg pain Generalized weakness Plan: Continue IV abx Continue pain control Trend labs Appreciate subspecialist input IVFs DVT prophylaxis DNR Comment Review of Relevant I have reviewed the following items lara (where applicable) has been applied. Medications: Current Medications Medications (Trade) Dose Ordered Sig/Eli Route PRN Reason Start Time Stop Time Status Last Admin Dose Admin Senna/Docusate Sodium (Senna Plus) 1 tab BID PO 08/12/21 21:00 08/13/21 09:09 Heparin Sodium (Porcine) (Heparin Sodium) 5,000 unit Q8HRS SQ 08/12/21 14:00 08/13/21 05:16 Finasteride (Proscar) 5 mg DAILY PO 08/13/21 09:00 08/13/21 09:09 Tamsulosin HCl (Flomax) 0.4 mg QHS PO 08/12/21 21:00 12/4/21 21:00 Justifications for Admission Other Justification TRENT WHITTEN III DO Aug 13, 2021 10:58
[2021-08-13 11:00] VITALS: BP 118/71
[2021-08-13 15:00] VITALS: BP 143/69
[2021-08-13 19:00] VITALS: BP 153/84
[2021-08-13] MEDS: LACTOBACILLUS RHAMNOSUS GG 1 CAPSULE. PO SCH (21:03)
[2021-08-13] MEDS: TAMSULOSIN 0.4 MG CAP.ER.24H. PO SCH (21:04)
[2021-08-13 23:20] VITALS: BP 153/71
[2021-08-14 03:12] VITALS: BP 128/65
[2021-08-14] MEDS: PIPERACILLIN/TAZOBACTAM 3.375 GM in IV NORMAL SALINE 50ML 50 ML IV SCH (05:09)
[2021-08-14] MEDS: HEPARIN for SUB-Q USE 5,000 UNIT/ML VIAL. SQ SCH (05:10)
[2021-08-14 07:00] VITALS: BP 176/82
[2021-08-14] MEDS: SENNOSIDES/DOCUSATE 8.6/50MG TABLET. PO SCH (08:56)
[2021-08-14] MEDS: FINASTERIDE 5 MG TABLET. PO SCH (08:56)
[2021-08-14] MEDS: LACTOBACILLUS RHAMNOSUS GG 1 CAPSULE. PO SCH (08:56)
[2021-08-14] MEDS: oxyCODONE/APAP 5/325 1 TAB TABLET PO PRN (08:58)
--- NOTE | 2021-08-14 10:19 | PDOC ---
Infectious Disease Note Subjective Subjective pt is feeling better ROS ROS no n/v/d/sob Vital Sign Vital Signs Vital Signs Date Time Temp Pulse Resp B/P (MAP) Pulse Ox O2 Delivery O2 Flow Rate FiO2 08/14/21 10:05 99 Room Air 08/14/21 07:00 97.8 72 18 176/82 (113) 97.8 Physical Exam PHYSICAL EXAM GENERAL: Alert, oriented x 3 male, lying in bed comfortably, in no acute distress. HEENT: Normocephalic, atraumatic. Anicteric. NECK: Supple, no JVD. LUNGS: Clear. HEART: S1, S2. ABDOMEN: Soft, nontender. Suprapubic catheter present, intact, changed yesterday per the patient. EXTREMITIES: No edema, no cyanosis. DERMATOLOGIC: Warm, dry, no generalized rash. NEUROLOGIC: Alert and oriented x 3, grossly nonfocal. Generalized weakness. PSYCHIATRIC: Calm and cooperative. MUSCULOSKELETAL: No changes suggestive of DJD. Labs Micro Microbiology 08/12/21 Blood Culture - Preliminary, Resulted NO GROWTH AFTER 2 DAYS 08/11/21 Urine Culture - Final, Complete Objective Assessment IMPRESSION: 1. Generalized weakness. 2. Urinary tract infection. 3. Leukocytosis. 4. Neurogenic bladder, status post suprapubic catheter exchange yesterday per patient. 5. Acute kidney injury, likely dehydration. 6. Chronic pain. Plan Plan of Care change to po antibiotics for d/c cultures neg ANGELA MCQUEEN MD Aug 14, 2021 10:19
[2021-08-14 11:00] VITALS: BP 156/76
[2021-08-14] MEDS ORDERED: CEFDINIR 300 MG CAPSULE PO SCH (12:00)
--- NOTE | 2021-08-14 13:00 | SNU/HH DC ---
DISCHARGE ORDERS DISCHARGE INFORMATION: CONDITION ON DISCHARGE: Stable CODE STATUS: Code Status: Full USP: SNF STAY <30 DAYS: Yes HOSPICE: HOSPICE: No HOSPICE EVAL & TREAT: No LTAC: ADMIT TO LTAC: No POST DISCHARGE ORDERS: ACTIVITY ORDERS: Activity as tolerated WEIGHT BEARING STATUS: As tolerated DIET AFTER DISCHARGE: Cardiac WOUND/INCISION CARE: Change dressing, Other, see below CHECKS AFTER DISCHARGE: CHECKS AFTER DISCHARGE: Check blood press - daily, Check your Temp as needed, Weigh Yourself Daily FOLLOW-UP: LAB ORDERS FOR FOLLOW-UP: CBC, CMP, ESR TREATMENT/EQUIPMENT ORDERS: ADAPTIVE EQUIPMENT NEEDED: None Physical Therapy For: Evalulation/Treatment Occupational Therapy For: Evaluation/Treatment Speech Language Pathology For: Evaluation/Treatment DISCHARGE MEDICATIONS: Home Meds Active Scripts Lactobacillus Rhamnosus Gg (CULTURELLE) 1 Each Cap.sprink, 1 CAP PO BID for UTI for 14 Days, #28 CAP Prov:INNA MARAVILLA MD 07/05/21 Acetaminophen (ACETAMINOPHEN) 325 Mg Tablet, 650 MG PO PRN Q6HRS PRN for MILD PAIN / TEMP > 100.3'F for 30 Days, #120 TAB Prov:INNA MARAVILLA MD 07/05/21 Reported Medications Finasteride (FINASTERIDE) 5 Mg Tablet, 1 TAB PO DAILY for prostate 06/27/21 [tamsulosin] 0.4 CAPSULE No Conflict Check, 0.4 MG PO HS 06/27/21 Meloxicam (MELOXICAM) 15 Mg Tablet, 1 TAB PO DAILY for arthritis pain 06/27/21 TRENT WHITTEN III DO Aug 14, 2021 13:00
--- NOTE | 2021-08-14 13:03 | SNU/HH DC ---
DISCHARGE WITH HOME HEALTH DISCHARGE INFORMATION: Condition on Discharge: Stable CODE STATUS: Code Status: Full HOME HEALTH: Face to Face: I certify this patient is under my care and that I, or a nurse practitioner or physician's chemistry research assistant working with me, had a face to face encounter that meets the physician face to face encounter requirements with this patient on []. Medical Complications: Falls, Other (Severe debility) Mcfp For: Assess & Educate Safety RN For Eval/Treatment: Yes Physical Therapy For: Evalulation/Treatment Occupational Therapy For: Evaluation/Treatment Speech Language Pathology For: Evaluation/Treatment Home Health Aide For: Self-care SUPERVISOR [employer] EDUCATION For: Community Resources Pt Meets Homebound Status: Poor coordination w/ amb. POST DISCHARGE ORDERS: Activity Instructions for Disc: Activity as tolerated Weight Bearing Status after Di: As tolerated DIET AFTER DISCHARGE: Cardiac Wound/Incision Care: Change dressing, Other, see below CHECKS AFTER DISCHARGE: Checks after discharge: Check blood press - daily, Check your Temp as needed, Weigh Yourself Daily FOLLOW-UP: DC TO SNF LABS: CBC, CMP, ESR TREATMENT/EQUIPMENT ORDERS: Adaptive Equipment Issued: None CERTIFICATION STATEMENT: Certification Statement: Certification Statement: Based on the above finding, I certify that this patient is confined to the home and needs intermittent long term care, physical therapy and/or speech therapy, or continues to need occupational therapy.~ This patient is under my care, and I have initiated the establishment of the plan of care.~ This patient will be followed by myself or a community physician who will periodically review the plan of care. Home Meds Active Scripts Lactobacillus Rhamnosus Gg (CULTURELLE) 1 Each Cap.sprink, 1 CAP PO BID for UTI for 14 Days, #28 CAP Prov:INNA MARAVILLA MD 07/05/21 Acetaminophen (ACETAMINOPHEN) 325 Mg Tablet, 650 MG PO PRN Q6HRS PRN for MILD PAIN / TEMP > 100.3'F for 30 Days, #120 TAB Prov:INNA MARAVILLA MD 07/05/21 Reported Medications Finasteride (FINASTERIDE) 5 Mg Tablet, 1 TAB PO DAILY for prostate 06/27/21 [tamsulosin] 0.4 CAPSULE No Conflict Check, 0.4 MG PO HS 06/27/21 Meloxicam (MELOXICAM) 15 Mg Tablet, 1 TAB PO DAILY for arthritis pain 06/27/21 TRENT WHITTEN III DO Aug 14, 2021 13:02
--- NOTE | 2021-08-14 13:34 | PDOC ---
[facility] PROGRESS NOTE Date of Service DOS: DATE: 08/14/21 TIME: 13:32 Chief Complaint Chief Complaint UTI Urosepsis Leukocytosis Fever Neurogenic bladder s/p suprapubic catheter placement JAMES Chronic leg pain Generalized weakness History of Present Illness History of Present Illness 08/14/2021 Patient seen and examined He called his that she immediately hung up on him I can get the sense that she has given up taking care of him I told him he needs to go to rehab He dropped an F bomb Refuses to go to rehab Discussed with case management Discussed with RN Chart reviewed 08/13/2021 Patient seen and examined Chart reviewed Discussed with RN Patient is feeling better today States he lives in a "highrise" with his . Suprapubic catheter to BSD. Good output. Patient complains of 6/10 leg pain. Last received Percocet at 0500. Zosyn hanging. Vitals/I&O Vitals/I&O: Vital Signs Date Time Temp Pulse Resp B/P (MAP) Pulse Ox O2 Delivery O2 Flow Rate FiO2 08/14/21 11:00 97.4 72 18 156/76 (102) 98 Room Air 97.4 I & O 08/13/21 08/13/21 08/14/21 15:00 23:00 07:00 Intake Total 540 ml 350 ml Output Total 400 ml Balance 540 ml -50 ml Physical Exam Physical Exam: GENERAL: Alert, oriented x 3 male, lying in bed comfortably, in no acute distress. HEENT: Normocephalic, atraumatic. Anicteric. NECK: Supple, no JVD. LUNGS: Clear. HEART: S1, S2. ABDOMEN: Soft, nontender. Suprapubic catheter present, intact, changed yesterday per the patient. EXTREMITIES: No edema, no cyanosis. DERMATOLOGIC: Warm, dry, no generalized rash. NEUROLOGIC: Alert and oriented x 3, grossly nonfocal. Generalized weakness. PSYCHIATRIC: Calm and cooperative. MUSCULOSKELETAL: No changes suggestive of DJD. General: Alert, Oriented X3, Cooperative, No acute distress Heart: Regular rate Lungs: Clear Abdomen: Normal bowel sounds Extremities: No clubbing Skin: No rashes Assessment and Plan Assessmemt and Plan Plan is discharged with home health or rehab which ever case management can arrange Comment Review of Relevant I have reviewed the following items lara (where applicable) has been applied. Medications: Current Medications Medications (Trade) Dose Ordered Sig/Eli Route PRN Reason Start Time Stop Time Status Last Admin Dose Admin Lactobacillus Rhamnosus (Culturelle) 1 cap BID PO 08/13/21 21:00 08/14/21 08:56 Cefdinir (Omnicef) 300 mg BID PO 08/14/21 12:00 08/14/21 12:45 Justifications for Admission Other Justification TRENT WHITTEN III DO Aug 14, 2021 13:33
--- NOTE | 2021-08-14 16:08 | NUR ---
Wound/Ostomy Care Wound Type/Assessment: Wound consult for buttock wound. Pt has scabbed wound to left buttock. Cleansed, assessed and redressed wound Treatment Recommendations/Plan: cleanse wound, apply skin prep and faom dressing. Change 2x weekly Education provided: PU prevention, WC POC Offloading surface/device: Tq2h, Float heels Recommended Referrals/Tests: na Discharge Recommendations for dressings: see above
--- NOTE | 2021-08-14 16:28 | DS ---
DATE OF DISCHARGE: 08/14/2021 ADMITTING DIAGNOSES: Urinary tract infection with sepsis. DISCHARGE DIAGNOSES: Resolving urinary tract infection with sepsis, severe debility, severe hygiene issues, probable inability to take care of himself, neurogenic bladder, acute kidney injury, chronic pain, generalized weakness. CONSULTS: Infectious Disease. PROCEDURES: None. HOSPITAL COURSE: The patient is a pleasant middle-aged male who presented once again with mental status change, was dehydrated and weak and had UTI with sepsis. Basically, he is not doing well at home. Over the past few days, we gave him IV fluids and antibiotics. Physical therapy is back to his baseline. I told him he needs to go to rehab, but he really does not want to go. He wants to go home with home health. He called his this morning while I was standing in the room. The screamed at him and hung up within 3 seconds. He then dropped an f-bomb and said he was not going to rehabilitation. I spoke with the pillowcase cutter. We are going to try to get him to rehabilitation. DISPOSITION: shelter. ACTIVITY: As tolerated. DIET: Low sodium. DISCHARGE MEDICATIONS: Please see the MRAD. TOTAL TIME: 32 minutes. SIS/HIRA DR: Sd TID: [id number]
--- NOTE | 2021-08-14 16:30 | NUR ---
Discharge Note: LISSET HUSAIN Discharge instructions and discharge home medications reviewed with Patient and a copy given. All questions have been answered and understanding verbalized. The following instructions and handouts were given: follow up instructions, medication education Discontinued lines and drains: 20 guage right upper arm, tip intact. patient tolerated well. Patient discharged to home with home health via stretcher transport.
== END 2021-08-14 16:31 | disposition home health service (06) | DRG 871 ==
LOC: ER 16:06 → ED HOLD 19:36 → 5 NORTH 20:46
PROVIDERS: ADMIT Internal Medicine; ATTEND Internal Medicine
DX: A41.9 Sepsis, unspecified organism (principal); N17.0 Acute kidney failure with tubular necrosis; N30.01 Acute cystitis with hematuria; B37.9 Candidiasis, unspecified; E86.0 Dehydration; G89.29 Other chronic pain; N31.9 Neuromuscular dysfunction of bladder, unspecified; R62.7 Adult failure to thrive; R65.20 Severe sepsis without septic shock; Z82.49 Family history of ischemic heart disease and other diseases of the circulatory system; Z87.440 Personal history of urinary (tract) infections; Z87.891 Personal history of nicotine dependence; M19.90 Unspecified osteoarthritis, unspecified site
CPT/HCPCS: 36415; 51702; 71045; 80053; 80307; 81001; 83605; 84484; 85007; 85025; 87040; 87086; 87426; 93005; 96361; 96365; A4314; J1644; J2405; J2543; J7030; U0003; U0005; 97110-GP; 99285-25; G0378

== ENCOUNTER 2021-09-28 15:39 | Emergency (ER) | payer MEDICARE, OTHER ==
[~2021-09-28] VITALS: Ht 177.8 cm; Wt 92.0 kg
[~2021-09-28 15:39] MED LIST changes: +DEXA6TAB6 PO
[2021-09-28 15:49] VITALS: BP 144/68
--- NOTE | 2021-09-28 15:58 | PHYS DOC ---
Past Medical History Additional Past Medical Histor: PT SMITH HISTORIAN, STATES TAKES MEDICATION BUT DOES NOT KNOW WHAT OR WHY Past Surgical History: Other Additional Past Surgical Histo: SUPRAPUBIC CHEEK CATHETER Smoking Status: Current Every Day Smoker Alcohol Use: None Drug Use: None Adult General Chief Complaint Chief Complaint: OTHER COMPLAINTS HPI HPI 75-year-old comorbid debilitated male returns to the emergency department via the same ambulance which drove him to his home following discharge from this facility just a couple of hours ago. Evidently he is extremely debilitated and is unable to ambulate without substantial assistance. He was recommended for s killed patient but he and family declined and demanded that he be discharged home today. He was discharged home, attempted to transfer from the EMS cot to furniture in his home and was completely unable to do so. He asked the ambulance crew to drive him back to the hospital so that he could be placed as was previously recommended. He has no new complaints at this time and vital signs are appropriate here. Review of Systems Review of Systems A 12 point review of systems was completed and was negative except where noted in HPI above. Allergies Allergies Allergies Coded Allergies Type Severity Reaction Last Updated Verified I S O L A T I O N *CONTACT* Allergy Unknown 09/01/21 Yes No Known Medication Allergies Allergy Unknown 09/01/21 Yes Physical Exam Physical Exam Elderly male appearing nontoxic and in no acute distress. Head is normocephalic and atraumatic. Neck is supple and nontender. Oropharynx is moist. Lungs are clear to auscultation at all stations. There is a normal S1 and S2 without rubs or gallops and capillary refill is appropriate, less than 2 seconds globally. Abdomen is soft, nontender and nondistended. Skin is warm and dry without cyanosis, clubbing or edema. Psychiatrically, the patient demonstrates appropriate mood and affect and is alert. EKG EKG [] Radiology/Procedures Radiology/Procedures [] Course & Med Decision Making Course & Med Decision Making Graciously accepted for admission by Dr. Barrientos. Will reorder basic labs. Dragon Disclaimer Caitlynon Disclaimer This electronic medical record was generated, in whole or in part, using a voice recognition dictation system. Departure Departure Impression: Primary Impression: Failure to thrive in adult Additional Impressions: Unable to ambulate Generalized weakness Disposition: ADMITTED INPATIENT Condition: STABLE Referrals: UNKNOWN PCP NAME (PCP) Problem Qualifiers LEE TIDWELL MD Sep 28, 2021 15:58
[2021-09-28] MEDS ORDERED: ONDANSETRON PF 4 MG/2 ML VIAL. IVP PRN (16:00)
[2021-09-28] MEDS ORDERED: ACETAMINOPHEN 325 MG TABLET. PO PRN (16:00)
--- NOTE | 2021-09-28 16:33 | NUR ---
SW received notification that pt came straight back to ER after pt's allegedly told him he can't walk so has to go back to the ED. There are no rehab options for pt with pt being COVID positive and with his insurance. ROSEMARIE discussed with ER nurse, Dr. Barrientos and Zeus Briones. SW attempted to reach pt's , Joanna - voicemail box full, however Dr. Barrientos did manage to speak to her and explained the situation, Joanna agreeable to pt returning home. Pt is a high risk readmission.
--- NOTE | 2021-09-28 17:13 | PDOC1 ---
History and Physical Date of Service: DOS: DATE: 09/28/21 TIME: 17:10 History of Present Illness: HPI: I was contacted for admission for this patient to after he had discharged just earlier today. Patient and had requested home with home health but he felt uncomfortable with this once he was home. He was brought back to the emergency room. I did discuss with the emergency room physician at great length and said I was comfortable discharging this patient under my name.. Informed patient given COVID positivity he really does not have any rehab options at this point and given his history has burned multiple bridges to rehab facilities unwilling to accept him for the foreseeable future. He will discharge home. I discussed this with the patient and on-call outreach and education social worker. I also contacted the who was agreeable to taking him back home at this point. Allergies: Allergies: Coded Allergies: I S O L A T I O N *CONTACT* (Verified Allergy, Unknown, 09/28/21) MDRO-Serratia No Known Medication Allergies (Verified Allergy, Unknown, 09/28/21) Current Medications: Current Medications Current Medications Ondansetron HCl (Zofran) 4 mg PRN Q8HRS PRN IVP NAUSEA/VOMITING; Start 09/28/21 at 16:00; Stop 09/29/21 at 15:59 Acetaminophen (Tylenol) 650 mg PRN Q4HRS PRN PO FEVER > 100.3'F; Start 09/28/21 at 16:00; Stop 09/29/21 at 15:59 Active Scripts Active Decadron (Dexamethasone) 6 Mg Tablet 6 Mg PO DAILY 7 Days Culturelle (Lactobacillus Rhamnosus Gg) 1 Each Cap.sprink 1 Cap PO BID 14 Days Acetaminophen 325 Mg Tablet 650 Mg PO PRN Q6HRS PRN 30 Days Reported Finasteride 5 Mg Tablet 1 Tab PO DAILY [tamsulosin] 0.4 Capsule 0.4 Mg PO HS Meloxicam 15 Mg Tablet 1 Tab PO DAILY ROS: Review of Systems Review of System REVIEW OF SYSTEMS: GENERAL: Denies weakness SKIN: No bruising, hair changes or rashes. EYES: No blurred, double or loss of vision. NOSE AND THROAT: No history of nosebleeds, hoarseness or sore throat. HEART: No history of palpitations, chest pain or shortness of breath on exertion. LUNGS: Denies cough, hemoptysis, wheezing or shortness of breath. GASTROINTESTINAL: Denies changes in appetite, nausea, vomiting, diarrhea or constipation. GENITOURINARY: No history of frequency, urgency, hesitancy or nocturia. NEUROLOGIC: Denies history of numbness, tingling, or tremor. PSYCHIATRIC: No history of panic, anxiety or depression. ENDOCRINE: No history of heat or cold intolerance, polyuria or polydipsia. EXTREMITIES: Denies joint pain, pain on walking or stiffness. Physical Exam: Vital Signs: Vital Signs Date Time Temp Pulse Resp B/P (MAP) Pulse Ox O2 Delivery O2 Flow Rate FiO2 09/28/21 15:49 98.2 73 15 144/68 (93) 97 Room Air 98.2 Physcial Exam: GEN: No apparent distress. Alert and oriented HEENT: Normal cephalic, atraumatic, external auditory canals are patent EYES: Extraocular muscles are intact, pupil are equally round and reactive to light and accommodation MUSCULOSKELETAL: Well developed , well nourished, good range of motion ENDOCRINE: No thyromegaly was palpated LYMPHATICS: No cervical chain or axillary nodes were noted HEMATOPOIETIC: No bruising NECK: Supple, no JVD, no thyromegaly was noted LUNGS: Clear to auscultation in all lung washburn without rhonchi or wheezing HEART: RRR, S!, S2 present. Peripheral pulses intact, no obvious murmurs noted ABDOMEN: Soft, nontender. Positive bowel sounds, no organomegaly, normal bowel sounds EXTREMITIES: Without clubbing, cyanosis, or edema. Pedal pulses intact. Negative Homans sign NEUROLOGIC: Normal speech and tone. A&O x 3, moves all extremities, no obvious focal deficits PSYCHIATRIC: Normal affect, normal mood. Stable SKIN: No ulcerations or rashes, good skin turgor, no jaundice VASCULAR: Good capillary refill, neurovascular bundle appears to be intact Justifications for Admission Other Justification INNA CARTER MD Sep 28, 2021 17:13
== END 2021-09-28 20:04 | disposition admitted as inpatient to this hospital (09) ==
LOC: ER 15:39 → UNDOADMIN 15:40 → ED HOLD 15:40
DX: R62.7 Adult failure to thrive (principal); R53.1 Weakness; F17.200 Nicotine dependence, unspecified, uncomplicated; Z91.041 Radiographic dye allergy status
CPT/HCPCS: 99283; 99285-25